=== PATIENT | female | born 1945 | race Caucasian/White ===

== ENCOUNTER → 2017-12-12 | Outpatient (CLI) | payer OTHER ==
[~2017-12-12] MED LIST: ASPI81TA28 PO; CALCTAB7 PO; CRD200 PO; FURO20TA PO; MCRK20 PO; MULTTAB PO; SDMC1 PO; VTMB12 PO; [UNRECOGNIZED DRUG - OTHER] PO
== END | disposition home or self-care (01) ==
LOC: C.LAB1850 09:11
PROVIDERS: ATTEND Internal Medicine Cardiovascular Disease
DX: I10 Essential (primary) hypertension (principal)

== ENCOUNTER 2021-07-27 11:58 | Inpatient (IN) ==
--- NOTE | 2021-07-27 13:51 | XRay Report ---
TWO VIEW CHEST CLINICAL HISTORY: Dyspnea.. FINDINGS: PA and lateral chest radiographs are compared to study dated 08/06/2014 and correlated with chest CT dated 07/24/2014. The patient is status post midline sternotomy and cardiac valve surgery. Epicardial pacing leads are in place. The heart is enlarged noting atherosclerotic calcification of t he thoracic aorta. The pulmonary vasculature is noncongested. Chronic interstitial thickening is helen lar to previous. There is bibasilar scarring/atelectasis. Suspect trace pleural effusions. No airspac e consolidation is identified. There is no pneumothorax. The skeletal structures are osteopenic. The bony thorax appears intact. IMPRESSION: 1. Cardiomegaly without radiographic evidence of congestive failure. 2. Trace pleural effusions. ACT 112: Negative or not required by law. Electronically signed by: Israel Cortes M.D. 07/27/2021 1:50 PM
[2021-07-27 16:17] LABS: Mean Corpuscular Hgb Conc 30.9 g/dL (32-36); Mean Platelet Volume 8.9 fL (7.4-10.4); Platelet Count 315 K/uL (130-400)
[2021-07-27 16:34] LABS: Alanine Aminotransferase 731 U/L (12-78); Albumin Level 3.3 gm/dl (3.4-5.0); Aspartate Aminotransferase 826 U/L (15-37); BUN Creatinine Ratio 22.9 (10-20); Blood Urea Nitrogen 30 mg/dl (7-18); Calcium 9.3 mg/dl (8.5-10.1); Carbon Dioxide 20 mmol/L (21-32); Chloride 94 mmol/L (98-107); Creatinine Clr Calc Pharmacy 30.5 ml/min; Est GFR (African American) 47.6 ml/min; Glucose 114 mg/dl (70-99); Potassium 4.7 mmol/L (3.5-5.1); Sodium 125 mmol/L (136-145)
[2021-07-27 16:45] LABS: Albumin Globulin Ratio 0.7 (0.9-2); Alkaline Phosphatase 203 U/L (45-117); Bilirubin,Total 0.8 mg/dl (0.2-1); Globulin 4.9 gm/dl (2.5-4.0); Total Protein 8.2 gm/dl (6.4-8.2); Troponin I < 0.015 ng/ml (0-0.045)
[2021-07-27 16:52] LABS: Basophils # (auto) 0.05 K/uL (0-0.2); Basophils % (auto) 0.7 %; Eosinophils # (auto) 0.05 K/uL (0-0.5); Eosinophils % (auto) 0.7 %; Hematocrit (blood only) 28.5 % (37-47); Hemoglobin 8.8 g/dL (12.0-16.0); Howell-Jolly Bodies Occasional; Hypochromasia Present; Immature Granulocytes # (auto) 0.02 K/uL (0.00-0.02); Immature Granulocytes % (auto) 0.3 %; Lymphocytes # (auto) 1.61 K/uL (1.2-3.4); Lymphocytes % (auto) 21.4 %; Mean Corpuscular Hemoglobin 23.6 pg (25-34); Mean Corpuscular Volume 76.4 fL (80-100); Monocytes # (auto) 0.77 K/uL (0.11-0.59); Monocytes % (auto) 10.2 %; Neutrophils # (auto) 5.02 K/uL (1.4-6.5); Neutrophils % (auto) 66.7 %; Nucleated RBC # (auto) 4.73 K/uL (0-0); Poikilocytosis Present; Polychromasia 1+; RDW Coefficient of Variation 18.2 % (11.5-14.5); RDW Standard Deviation 50.4 fL (36.4-46.3); Red Blood Count 3.73 M/uL (4.2-5.4); Spherocytes Occasional; White Blood Count 7.52 K/uL (4.8-10.8)
--- NOTE | 2021-07-27 17:10 | Electrocardiogram Report ---
Test Reason : Blood Pressure : / mmHG Vent. Rate : 105 BPM Atrial Rate : 113 BPM P-R Int : 000 ms QRS Dur : 108 ms QT Int : 378 ms P-R-T Axes : 000 045 036 degrees QTc Int : 499 ms Atrial fibrillation with rapid ventricular response Nonspecific ST abnormality Abnormal ECG When compared with ECG of 20-MAY-2018 14:43, Atrial fibrillation has replaced Sinus rhythm ST now depressed in Inferior leads QT has lengthened Confirmed by Baljinder Naik ([id number]) on 07/27/2021 5:09:50 PM Referred By: Confirmed By:Elijah Naik
[2021-07-27] MEDS ORDERED: SODIUM CHLORIDE 0.9% 1000ML 1,000 ML IV STA (21:37)
[2021-07-27] MEDS ORDERED: FLECAINIDE ACETATE 100 MG TABLET PO STA (22:03)
[2021-07-27] MEDS ORDERED: METOPROLOL SUCC 50MG EXT REL TAB PO STA ×2 (22:03)
--- NOTE | 2021-07-27 23:06 | History & Physical Report ---
Date of Service July 27, 2021 Assessment & Plan (1) Elevated LFTs: Plan: Ms. Sethi 75 yo female with PMHx iron deficiency anemia, afib on Eliquis, HTN, nonischemic cardiomyopathy, bicuspid aortic valve s/p aortic valve replacement, recent diagnosis of Hep A infection 1 month ago presented to ED with elevated LFTs and fatigue. 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 + nitrites -Rocephin x1 ED, continue -monitor WBC 4) h/o afib w/ RVR -asymptomatic -EKG: afib w/ RVR, nonspecific ST changes -trops negative -cont. flecainide, metoprolol -cont. Eliquis -hold losartan -on classroom monitor 5) Iron deficiency anemia -Hgb 8.8 in ED; 7.7 in clinic -Started iron again earlier this week, cont. iron supplementation -Has been taking calcium supplements for years; interferes with iron absorption -ferritin level pending -trend CBC DVT ppx: Eliquis 5mg FEN/GI: Heart Healthy, LRs 90mls/hr Code Status: Full Dispo: med/surg History of Present Illness Chief Complaint: Elevated LFTs, Fatigue Primary Care Provider: Sarkis Barahona MD Ms. Sethi 75 yo female with PMHx iron deficiency anemia, afib on Eliquis, HTN, nonischemic cardiomyopathy, bicuspid aortic valve s/p aortic valve replacement, recent diagnosis of Hep A infection ? 1 month ago presented to ED with elevated LFTs and fatigue. ~1 month ago, ate carry out [place] food (shrimp dish), 4 hours after eating had GI symptoms of diarrhea, nausea as well as palpitations. No vomiting at that time. Went to PCP and found to be positive for hepatitis A as well as elevated liver enzymes. RUQ US at that time negative. Due to GI upset and fatigue, was not eating much nor drinking a lot of liquids. Went back to PCP over the last week and liver enzymes remained elevated and increasing so was told to go to the ER. Of note, 1 month prior to symptoms in early May, patient [place] lot of seafood and shellfish. She also states prior to becoming sick 1 month ago, was drinking 2 bourbons per night for the last 30 years. Cannot take NSAIDs due to h/o aortic valve replacement. Patient reports having a contaminated well as a child. She had a brother that became very ill. Patient was administered HAV Immune globulin. Does not believe she was tested for HAV. She also had another exposure to HAV in 1970 when her room mates returned ill from [place]. She was again administered HAV Immune globulin. Allergies Allergy/AdvReac Type Severity Reaction Status Date / Time bupivacaine Allergy Unknown possibly Verified 07/27/21 23:12 caused seizures EGG PLANT Allergy Intermediate MOUTH Uncoded 07/27/21 23:12 TINGLES Home Medications Medication Instructions Recorded Confirmed Type acetaminophen 500 mg tablet 500 mg PO Q6H PRN 06/02/18 07/27/21 History (Tylenol Extra Strength) apixaban 5 mg tablet (Eliquis) 5 mg PO BID #180 tab 06/30/21 07/27/21 Rx losartan 100 mg tablet 50 mg PO DAILY tab 06/30/21 07/27/21 History flecainide 100 mg tablet 100 mg PO Q12H #60 tab 07/24/21 07/27/21 Rx metoprolol succinate 50 mg 150 mg PO DAILY #270 tab 07/24/21 07/27/21 Rx tablet,extended release 24 hr amoxicillin 500 mg capsule 500 mg PO .COMPLEX PRN 07/27/21 07/27/21 History calcium carbonate 600 mg-vitamin 1 tab PO DAILY 07/27/21 07/27/21 History D3 10 mcg (400 unit) tablet (Calcium 600 + D(3)) multivitamin 1 tab PO DAILY 07/27/21 07/27/21 History Past Med/Surg History Medical History Atrial fibrillation HAD 1 EPISODE WITH RVR FOLLOWING AVR REPAIR, NO ISSUES SINCE. PER CARDIO 4/23 'PT REFUSES PENITENTIARY ANTICOAGULATION SHE FELT HER AFIB WAS SOLEY A POST- OP PHENOMENON.' Bicuspid aortic valve S/P BOVINE AVR 2013 Hypertension REPORTS 120'S/80'S ON HOME READINGS Nonischemic cardiomyopathy P/t AVR, EF was 40%. EF on 05/21/17 echo WNL Seizure 1 TIME SEIZURE UPON EMERGENCE FROM ANESTHESIA FOR AVR 2013, HAD TO BE RE- INTUBATED. NO ISSUES SINCE, WAS ON KEPPRA X 3 MONTHS BUT WAS WEANED OFF. PER PT MAY HAVE BEEN R/T BUPIVOCAINE ALLERGY, BUT HOSPITAL RECORD SAYS 'UNKNOWN ETIOLOGY, POSSIBLY 2/2 ETOH WITHDRAWAL.' Surgical History Anesthesia complication PT HAD AN AVR AT [facility]. PT STATES SHE WAS TOLD SHE HAD A SEIZURE WHEN BEING BROUGHT OUT OF ANESTHESIA POSSIBLE RELATED TO EXPEREL. PT DENIES ANY ISSUES SINCE. H/O aortic valve replacement H/O colonoscopy History of cardiac catheterization Social History Smoking Status: Former smoker Second Hand Exposure: No; Hx Alcohol Use: Yes Alcohol type: hard liquor Hx Substance Use: No Preferred Language: Tuvaluan Communication Ability: Effective Tax Examining Technician Required: No Beliefs That Will Affect Care: None Current Living Situation: Spouse Other Information That Helps Us Care for You: No Feels Safe at Home: Yes Safety Concerns: Feels Safe At This Time Assistive Devices: Glasses Review of Systems Review of Systems: Constitutional: denies fevers, chills, night sweats. +fatigue HEENT: denies congestion, sore throat CV: denies chest pain, palpitations Resp: denies cough. +SOB GI: denies abdominal pain, vomiting, constipation, diarrhea. +nausea : denies pain with urination, change in urinary frequency Musculoskeletal: denies recent injury Skin: denies new rash Neuro: denies new numbness, tingling, weakness Physical Exam Physical Exam: Constitutional: thin, in no acute distress, pleasant and normal affect, intact memory. Vitals as above. HEENT: No scleral injection or discharge. anicteric. Moist mucous membranes. Clear oropharynx. No exudate. No lesions. Tympanic membranes are clear bilaterally. Neck: Supple without lymphadenopathy or thyromegaly. Trachea midline. Lungs: Clear to auscultation bilaterally with good effort. Cardiac: Irregularly irregular rhythm. No murmurs. No extremity edema. Abdomen: Bowel sounds present. Soft, nontender, and nondistended.No guarding. No masses. No hepatosplenomegaly. Negative murphys. No rebound tenderness. MSK: No cyanosis or clubbing. Extremities motor strength 5/5. Skin: No rashes, warm, dry. Neurologic: Grossly intact cranial nerves. PERRL. Results & Data Results & Data ([facility]) Vital Signs (Past 12 Hours) Vital Signs Temp Pulse Pulse Resp BP BP Pulse Ox 07/27/21 22:50 110 H 20 113/83 98 07/27/21 16: 112 H 18 146/115 H 96 07/27/21 13:00 36.0 C L 74 18 116/64 97 Laboratory Results Laboratory Results WBC 7.52 K/uL (4.8-10.8) 07/27/21 16: RBC 3.73 M/uL (4.2-5.4) L 07/27/21 16: Hgb 8.8 g/dL (12.0-16.0) L 07/27/21 16: Hct 28.5 % (37-47) L 07/27/21 16: MCV 76.4 fL (80-100) L 07/27/21 16: MCH 23.6 pg (25-34) L 07/27/21 16: MCHC 30.9 g/dL (32-36) L 07/27/21 16:01 RDW Std Deviation 50.4 fL (36.4-46.3) H 07/27/21 16: RDW Coeff of Tanya 18.2 % (11.5-14.5) H 07/27/21 16: Plt Count 315 K/uL (130-400) 07/27/21 16: MPV 8.9 fL (7.4-10.4) 07/27/21 16: Immature Gran % (Auto) 0.3 % 07/27/21 16: Neut % (Auto) 66.7 % 07/27/21 16: Lymph % (Auto) 21.4 % 07/27/21 16: Dale % (Auto) 10.2 % 07/27/21 16: Eos % (Auto) 0.7 % 07/27/21 16:01 Baso % (Auto) 0.7 % 07/27/21 16:01 Neut # (Auto) 5.02 K/uL (1.4-6.5) 07/27/21 16:01 Lymph # (Auto) 1.61 K/uL (1.2-3.4) 07/27/21 16:01 Dale # (Auto) 0.77 K/uL (0.11-0.59) H 07/27/21 16:01 Eos # (Auto) 0.05 K/uL (0-0.5) 07/27/21 16:01 Baso # (Auto) 0.05 K/uL (0-0.2) 07/27/21 16:01 Immature Gran # (Auto) 0.02 K/uL (0.00-0.02) 07/27/21 16:01 Absolute Nucleated RBC 4.73 K/uL (0-0) H 07/27/21 16:01 Nucleated RBC % (auto) 63.0 % 07/27/21 16:01 Polychromasia 1+ 07/27/21 16:01 Hypochromasia Present 07/27/21 16:01 Poikilocytosis Present 07/27/21 16:01 Spherocytes Occasional 07/27/21 16:01 Cisneros-Champion Bodies Occasional 07/27/21 16:01 Sodium 125 mmol/L (136-145) L 07/27/21 16:01 Potassium 4.7 mmol/L (3.5-5.1) 07/27/21 16: Chloride 94 mmol/L (98-107) L 07/27/21 16:01 Carbon Dioxide 20 mmol/L (21-32) L 07/27/21 16:01 Anion Gap 11.0 (3-11) 07/27/21 16:01 BUN 30 mg/dl (7-18) H 07/27/21 16:01 Creatinine 1.29 mg/dl (0.6-1.2) H 07/27/21 16:01 Est Cr Clr Drug Dosing 30.5 ml/min 07/27/21 16:01 Est GFR ( Amer) 47.6 ml/min 07/27/21 16:01 Est GFR (Non-Af Amer) 41.0 ml/min 07/27/21 16:01 BUN/Creatinine Ratio 22.9 (10-20) H 07/27/21 16:01 Glucose 114 mg/dl (70-99) H 07/27/21 16:01 Calcium 9.3 mg/dl (8.5-10.1) 07/27/21 16:01 Total Bilirubin 0.8 mg/dl (0.2-1) 07/27/21 16:01 AST 826 U/L (15-37) H 07/27/21 16:01 ALT 731 U/L (12-78) H 07/27/21 16:01 Alkaline Phosphatase 203 U/L (45-117) H 07/27/21 16:01 Troponin I < 0.015 ng/ml (0-0.045) 07/27/21 16:01 Total Protein 8.2 gm/dl (6.4-8.2) 07/27/21 16:01 Albumin 3.3 gm/dl (3.4-5.0) L 07/27/21 16:01 Globulin 4.9 gm/dl (2.5-4.0) H 07/27/21 16:01 Albumin/Globulin Ratio 0.7 (0.9-2) L 07/27/21 16:01 TSH 5.900 uIu/ml (0.300-4.500) H 07/27/21 16:01 Impressions Chest X-Ray 07/27/21 13:35 TWO VIEW CHEST CLINICAL HISTORY: Dyspnea.. FINDINGS: PA and lateral chest radiographs are compared to study dated 08/06/2014 and correlated with chest CT dated 07/24/2014. The patient is status post midline sternotomy and cardiac valve surgery. Epicardial pacing leads are in place. The heart is enlarged noting atherosclerotic calcification of the thoracic aorta. The pulmonary vasculature is noncongested. Chronic interstitial thickening is similar to previous. There is bibasilar scarring/atelectasis. Suspect trace pleural effusions. No airspace consolidation is identified. There is no pneumothorax. The skeletal structures are osteopenic. The bony thorax appears intact. IMPRESSION: 1. Cardiomegaly without radiographic evidence of congestive failure. 2. Trace pleural effusions. ACT 112: Negative or not required by law. Electronically signed by: Israel Cortes M.D. 07/27/2021 1:50 PM ECG Additional Comments: atrial fibrillation w/ RVR, nonspecific ST abnormalities Supervising Physician Co-Signing Physician Notes Patient seen and examined, chart reviewed, case discussed with Dr. Morales and I agree with the assessment and plan as above. In brief, patient is a 75yo female, recent HAV infection presenting with abnormal liver labs and fatigue. Exam largely unremarkable. No icterus, jaundice. No rashes. No ascites Abdomen is soft, NT/ND, no organomegaly No edema Labs and images reviewed. KRT=756 ILG=835, AL=427, Tbili WNL at 0.8 INR=1.3 Mp=311 Assessment/Plan - abnormal liver studies - AST/ALT predominantly. Recent HAV diagnosis following presumed food borne illness from take-out. ?HAV recurrence -Check hepatitis panel -Check Tylenol, Ferritin, repeat LFTs and INR in AM -IVF with repeat chemistry panel in AM for hyponatremia -Remainder of plan as above Resident Activity Tracking Resident Involvement: Resident Care Provided Care Provided: Adult Hospital Medicine
[2021-07-27 23:16] LABS: Appearance Urine Clear (Clear); Bacteria Urine Automated 3+ (Negative); Bilirubin Urine Negative (Negative); Blood Urine Trace (Negative); Color Urine Dark Yellow; Epithelial Cell Urine Auto >30 /lpf (0-5); Glucose Urine UA Negative (Negative); Ketones Urine Negative (Negative); Leukocyte Esterase Urine Trace (Negative); Nitrite Urine Positive (Negative); Protein Urine 2+ (Negative); RBC Urine Automated 0-4 /hpf (0-4); Specific Gravity Urine 1.018 (1.000-1.030); Urobilinogen Urine Negative (Negative)
--- NOTE | 2021-07-27 23:48 | Emergency Department Note ---
Impression & Plan Acute hepatitis, Anemia, Acute hyponatremia, Weakness, Acute UTI (urinary tract infection) ED Provider Note INFORMANT: Patient ED PROVIDER(S): Claude Vasquez MD CHIEF COMPLAINT: Weakness PLAN: Disposition: Admitted Condition: Good Outpatient prescription management: none Referral: None MEDICAL DECISION MAKING: Patient presented because of abnormal labs. Work-up here revealed significant elevation of her LFTs. The patient had normal bilirubin. She had a moderate anemia. No leukocytosis. Ultrasound imaging did not reveal any significant abnormal findings. Patient's urinalysis was concerning for infection. She was treated with IV Rocephin. She was hydrated. She was found to be hyponatremic. The patient will need further management in the hospital. [facility] Dr[facility] Marin[facility]. Patient was evaluated and admitted for further management. Triage Nursing notes reviewed and agree them. Vital Signs: reviewed and remarkable for no significant abnormalities Differential diagnosis: Infection, dehydration, metabolic abnormality, hypo/hyperglycemia, electrolyte disturbance, anemia, hypoxia, cardiac sources, intracerebral event, toxicologic, neurologic, as well as other pathologies. Diagnostics interpreted by me: ECG: Twelve-lead ECG reveals atrial fibrillation with rapid ventricular spots at [address] abnormality. No ST elevation. No PVCs. Cardiac Monitoring: Cardiac monitoring ordered by me: The patient was placed on continuous cardiac monitoring and observed. It revealed atrial fibrillation at 95 bpm. Imaging studies: Chest x-ray. Findings: A chest x-ray was performed and revealed no pneumothorax, effusion, infiltrate, pulmonary edema, free air under the diaphragm, or wide mediastinum. Impression: No acute disease. Ultrasound of the liver is negative. HPI: The patient is a 75 year old female who presents to the Emergency Room with complaints of weakness this started about 4 weeks ago and is persisting since having a bout of food poisoning. The patient was diagnosed with hepatitis A. She was also found to be anemic. The patient also had an aortic valve replaced and was found to be in A. fib. She was discharged on flecainide. She is was on Eliquis. The patient states this was stopped because blood work revealed abnormal liver functions and anemia. Patient was given iron. She has had some intermittent right upper quadrant pain but none currently. Denies any jaundice. Has not had any alcohol or Tylenol in a month. Patient does note decreased oral intake. Pt denies LOC, headache, fevers, chills, diaphoresis, visual changes, neck pain, chest pain, breathing difficulties, nausea, vomiting, back pain, melena, hematochezia, urinary symptoms, numbness, lymphadenopathy, rash, or other complaints. ROS: See above HPI for pertinent positives & negatives. A total of 10 systems reviewed and were otherwise negative. PAST MEDICAL HISTORY:See Below , A. fib PAST SURGICAL HISTORY:See Below, AVR FAMILY HISTORY:See Below SOCIAL HISTORY:See Below, retired nurse HOME MEDICATIONS:See Below ALLERGIES:See Below VITALS:See Below PHYSICAL EXAMINATION: GENERAL: Awake, fatigued-appearing, in no distress HENT: Normocephalic, atraumatic. Oropharynx unremarkable. EYES: Normal conjunctiva. Sclera non-icteric. NECK: Inspection normal. Non-tender. Supple. No nuchal rigidity. FROM. No masses. RESPIRATORY: Clear to auscultation. No wheezes. No rales. Normal respiratory effort. CARDIAC: Normal rate. Irregular rhythm. No murmurs. No rubs. Extremities warm and well perfused. Pulses equal. No JVD. GI: Soft, non-distended. No tenderness to palpation. No rebound or guarding. No masses. RECTAL: Deferred. MUSCULOSKELETAL: Atraumatic. Chest examination reveals no tenderness. The back is symmetrical on inspection without obvious abnormality. There is no CVA tenderness to palpation. No joint edema. LOWER EXTREMITIES: Calves are equal size bilaterally and non-tender. Trace edema. No discoloration. NEURO: Normal sensorium. No sensory or motor deficits noted. SKIN: No rash or jaundice noted. Claude Vasquez MD Past Med/Surg History Medical History Atrial fibrillation HAD 1 EPISODE WITH RVR FOLLOWING AVR REPAIR, NO ISSUES SINCE. PER CARDIO 12/16 'PT REFUSES NETWORK CONTROLLER ANTICOAGULATION SHE FELT HER AFIB WAS SOLEY A POST- OP PHENOMENON.' Bicuspid aortic valve S/P BOVINE AVR 2013 Hypertension REPORTS 120'S/80'S ON HOME READINGS Nonischemic cardiomyopathy P/t AVR, EF was 40%. EF on 05/21/17 echo WNL Seizure 1 TIME SEIZURE UPON EMERGENCE FROM ANESTHESIA FOR AVR 2013, HAD TO BE RE- INTUBATED. NO ISSUES SINCE, WAS ON KEPPRA X 3 MONTHS BUT WAS WEANED OFF. PER PT MAY HAVE BEEN R/T BUPIVOCAINE ALLERGY, BUT HOSPITAL RECORD SAYS 'UNKNOWN ETIOLOGY, POSSIBLY 2/2 ETOH WITHDRAWAL.' Surgical History Anesthesia complication PT HAD AN AVR AT [facility]. PT STATES SHE WAS TOLD SHE HAD A SEIZURE WHEN BEING BROUGHT OUT OF ANESTHESIA POSSIBLE RELATED TO EXPEREL. PT DENIES ANY ISSUES SINCE. H/O aortic valve replacement H/O colonoscopy History of cardiac catheterization Social History Smoking Status: Former smoker Second Hand Exposure: No; Hx Alcohol Use: Yes Alcohol type: other Hx Substance Use: No Preferred Language: Guinean Communication Ability: Effective Career Development Coordinator/Teacher Required: No Beliefs That Will Affect Care: None Current Living Situation: Spouse Feels Safe at Home: Yes Assistive Devices: Glasses Allergies Allergies Allergy/AdvReac Type Severity Reaction Status Date / Time bupivacaine Allergy Unknown possibly Verified 07/27/21 23:12 caused seizures EGG PLANT Allergy Intermediate MOUTH Uncoded 07/27/21 23:12 TINGLES Home Meds Home Medications Medication Instructions Recorded Confirmed acetaminophen 500 mg tablet 500 mg PO Q6H PRN 06/02/18 07/27/21 (Tylenol Extra Strength) losartan 100 mg tablet 50 mg PO DAILY tab 06/30/21 07/27/21 amoxicillin 500 mg capsule 500 mg PO .COMPLEX PRN 07/27/21 07/27/21 calcium carbonate 600 mg-vitamin 1 tab PO DAILY 07/27/21 07/27/21 D3 10 mcg (400 unit) tablet (Calcium 600 + D(3)) multivitamin 1 tab PO DAILY 07/27/21 07/27/21 Previous Rx's Medication Instructions Recorded apixaban 5 mg tablet (Eliquis) 5 mg PO BID #180 tab 06/30/21 flecainide 100 mg tablet 100 mg PO Q12H #60 tab 07/24/21 metoprolol succinate 50 mg 150 mg PO DAILY #270 tab 07/24/21 tablet,extended release 24 hr Results & Data (ED) Vital Signs Vital Signs - 24 hr 07/27/21 13:00 07/27/21 16:01 07/27/21 22:50 Temperature 36.0 C L Temperature Source Temporal Artery Scan Pulse Rate 74 Pulse Rate [Right Radial] 112 H 110 H Respiratory Rate 18 18 20 Respiratory Effort / Characteristics Respiratory Depth Blood Pressure 116/64 Blood Pressure [Left Arm] 146/115 H 113/83 Blood Pressure Mean 81 Blood Pressure Mean [Left Arm] 125 93 Pulse Oximetry 97 96 98 Oxygen Delivery Method Room Air Room Air Room Air Sepsis New/Unexplained Change in Mental Status No Sepsis Action Taken by Nursing No Action Required 07/27/21 23:09 07/28/21 01:41 Temperature Temperature Source Pulse Rate Pulse Rate [Right Radial] 95 H Respiratory Rate 18 Respiratory Effort / Characteristics Non-Labored Spontaneous Respiratory Depth Normal Blood Pressure Blood Pressure [Left Arm] 129/92 Blood Pressure Mean Blood Pressure Mean [Left Arm] 104 Pulse Oximetry 96 93 Oxygen Delivery Method Room Air Room Air Sepsis New/Unexplained Change in Mental Status Sepsis Action Taken by Nursing Laboratory Data Result diagrams: 07/27/21 16:01 07/27/21 16:01 Lab Results 07/27/21 07/27/21 07/27/21 Range/Units 16:01 16:01 22:52 WBC 7.52 (4.8-10.8) K/uL RBC 3.73 L (4.2-5.4) M/uL Hgb 8.8 L (12.0-16.0) g/dL Hct 28.5 L (37-47) % MCV 76.4 L (80-100) fL MCH 23.6 L (25-34) pg MCHC 30.9 L (32-36) g/dL RDW Std Deviation 50.4 H (36.4-46.3) fL RDW Coeff of Tanya 18.2 H (11.5-14.5) % Plt Count 315 (130-400) K/uL MPV 8.9 (7.4-10.4) fL Immature Gran % (Auto) 0.3 % Neut % (Auto) 66.7 % Lymph % (Auto) 21.4 % [place] % (Auto) 10.2 % Eos % (Auto) 0.7 % Baso % (Auto) 0.7 % Neut # (Auto) 5.02 (1.4-6.5) K/uL Lymph # (Auto) 1.61 (1.2-3.4) K/uL [place] # (Auto) 0.77 H (0.11-0.59) K/uL Eos # (Auto) 0.05 (0-0.5) K/uL Baso # (Auto) 0.05 (0-0.2) K/uL Immature Gran # (Auto) 0.02 (0.00-0.02) K/uL Absolute Nucleated RBC 4.73 H (0-0) K/uL Nucleated RBC % (auto) 63.0 % Polychromasia 1+ Hypochromasia Present Poikilocytosis Present Spherocytes Occasional [place] Bodies Occasional PT 13.2 H (9.0-12.0) Seconds INR 1.3 H (0.9-1.1) APTT 26.8 (21.0-31.0) Seconds PTT Ratio 1.0 Sodium 125 L (136-145) mmol/L Potassium 4.7 (3.5-5.1) mmol/L Chloride 94 L (98-107) mmol/L Carbon Dioxide 20 L (21-32) mmol/L Anion Gap 11.0 (3-11) BUN 30 H (7-18) mg/dl Creatinine 1.29 H (0.6-1.2) mg/dl Est Cr Clr Drug Dosing 30.5 ml/min Est GFR ( Amer) 47.6 ml/min Est GFR (Non-Af Amer) 41.0 ml/min BUN/Creatinine Ratio 22.9 H (10-20) Glucose 114 H (70-99) mg/dl Calcium 9.3 (8.5-10.1) mg/dl Total Bilirubin 0.8 (0.2-1) mg/dl AST 826 H (15-37) U/L ALT 731 H (12-78) U/L Alkaline Phosphatase 203 H (45-117) U/L Troponin I < 0.015 (0-0.045) ng/ml Total Protein 8.2 (6.4-8.2) gm/dl Albumin 3.3 L (3.4-5.0) gm/dl Globulin 4.9 H (2.5-4.0) gm/dl Albumin/Globulin Ratio 0.7 L (0.9-2) TSH 5.900 H (0.300-4.500) uIu/ml Urine Color Urine Appearance (Clear) Urine pH (4.5-7.5) Ur Specific [place] (1.000-1.030) Urine Protein (Negative) Urine Glucose (UA) (Negative) Urine Ketones (Negative) Urine Blood (Negative) Urine Nitrite (Negative) Urine Bilirubin (Negative) Urine Urobilinogen (Negative) Ur Leukocyte Esterase (Negative) Urine WBC (Auto) (0-5) /hpf Urine RBC (Auto) (0-4) /hpf U Hyaline Cast (Auto) (0-5) /lpf U Epithel Cells (Auto) (0-5) /lpf Urine Bacteria (Auto) (Negative) SARS-CoV-2, RNA, NAAT (NEGATIVE) Blood Type Antibody Screen 07/27/21 07/27/21 07/28/21 Range/Units 22:52 22:52 Unknown WBC (4.8-10.8) K/uL RBC (4.2-5.4) M/uL Hgb (12.0-16.0) g/dL Hct (37-47) % MCV (80-100) fL MCH (25-34) pg MCHC (32-36) g/dL RDW Std Deviation (36.4-46.3) fL RDW Coeff of Tanya (11.5-14.5) % Plt Count (130-400) K/uL MPV (7.4-10.4) fL Immature Gran % (Auto) % Neut % (Auto) % Lymph % (Auto) % [place] % (Auto) % Eos % (Auto) % Baso % (Auto) % Neut # (Auto) (1.4-6.5) K/uL Lymph # (Auto) (1.2-3.4) K/uL [place] # (Auto) (0.11-0.59) K/uL Eos # (Auto) (0-0.5) K/uL Baso # (Auto) (0-0.2) K/uL Immature Gran # (Auto) (0.00-0.02) K/uL Absolute Nucleated RBC (0-0) K/uL Nucleated RBC % (auto) % Polychromasia Hypochromasia Poikilocytosis Spherocytes [place]ner[place] Bodies PT (9.0-12.0) Seconds INR (0.9-1.1) APTT (21.0-31.0) Seconds PTT Ratio Sodium (136-145) mmol/L Potassium (3.5-5.1) mmol/L Chloride (98-107) mmol/L Carbon Dioxide (21-32) mmol/L Anion Gap (3-11) BUN (7-18) mg/dl Creatinine (0.6-1.2) mg/dl Est Cr Clr Drug Dosing ml/min Est GFR ( Amer) ml/min Est GFR (Non-Af Amer) ml/min BUN/Creatinine Ratio (10-20) Glucose (70-99) mg/dl Calcium (8.5-10.1) mg/dl Total Bilirubin (0.2-1) mg/dl AST (15-37) U/L ALT (12-78) U/L Alkaline Phosphatase (45-117) U/L Troponin I (0-0.045) ng/ml Total Protein (6.4-8.2) gm/dl Albumin (3.4-5.0) gm/dl Globulin (2.5-4.0) gm/dl Albumin/Globulin Ratio (0.9-2) TSH (0.300-4.500) uIu/ml Urine Color Dark Yellow Urine Appearance Clear (Clear) Urine pH 5.0 (4.5-7.5) Ur Specific [place] 1.018 (1.000-1.030) Urine Protein 2+ H (Negative) Urine Glucose (UA) Negative (Negative) Urine Ketones Negative (Negative) Urine Blood Trace H (Negative) Urine Nitrite Positive A (Negative) Urine Bilirubin Negative (Negative) Urine Urobilinogen Negative (Negative) Ur Leukocyte Esterase Trace H (Negative) Urine WBC (Auto) 5-10 H (0-5) /hpf Urine RBC (Auto) 0-4 (0-4) /hpf U Hyaline Cast (Auto) 10-30 H (0-5) /lpf U Epithel Cells (Auto) >30 H (0-5) /lpf Urine Bacteria (Auto) 3+ H (Negative) SARS-CoV-2, RNA, NAAT NEGATIVE (NEGATIVE) Blood Type O Negative Antibody Screen NEGATIVE Administered Medications Sodium Chloride (Nss 1000ml) 1,000 mls @ 125 mls/hr IV .Q8H STA Stop: 07/28/21 05:36 Last Admin: 07/27/21 22:48 Dose: 125 mls/hr Documented by: [id number] Discontinued Medications Flecainide Acetate (Flecainide Acetate 100 Mg Tablet) 100 mg PO NOW STA Stop: 07/27/21 22:04 Last Admin: 07/27/21 23:36 Dose: 100 mg Documented by: [id number] Ceftriaxone Sodium (Rocephin) 1,000 mg in 50 mls @ 100 mls/hr IV NOW STA Stop: 07/28/21 00:35 Last Infusion: 07/28/21 01:53 Dose: 0 mls/hr Documented by: [id number] Admin: 07/28/21 01:00 Dose: 100 mls/hr Documented by: [id number] Metoprolol Succinate (Metoprolol Succ 50mg Ext Rel Tab) 100 mg PO NOW STA Stop: 07/27/21 22:04 Last Admin: 07/27/21 23:32 Dose: 100 mg Documented by: [id number] Metoprolol Succinate (Metoprolol Succ 50mg Ext Rel Tab) 50 mg PO NOW STA Stop: 07/27/21 22:04 Last Admin: 07/27/21 23:32 Dose: 50 mg Documented by: [id number] Imaging Data Radiologist's Impression: Chest X-Ray 07/27/21 13:35 TWO VIEW CHEST CLINICAL HISTORY: Dyspnea.. FINDINGS: PA and lateral chest radiographs are compared to study dated 08/06/2014 and correlated with chest CT dated 07/24/2014. The patient is status post midline sternotomy and cardiac valve surgery. Epicardial pacing leads are in place. The heart is enlarged noting atherosclerotic calcification of the thoracic aorta. The pulmonary vasculature is noncongested. Chronic interstitial thickening is similar to previous. There is bibasilar scarring/atelectasis. Suspect trace pleural effusions. No airspace consolidation is identified. There is no pneumothorax. The skeletal structures are osteopenic. The bony thorax appears intact. IMPRESSION: 1. Cardiomegaly without radiographic evidence of congestive failure. 2. Trace pleural effusions. ACT 112: Negative or not required by law. Electronically signed by: Israel Cortes M.D. 07/27/2021 1:50 PM Discharge Plan Visit Data Chief Complaint: Weakness Stated Complaint: HEP A, WEAK, LOW HG, RFRD BY DR DE LA CRUZ Provider: Claude Vasquez Discharge Problem: Acute hepatitis, Anemia, Acute hyponatremia, Weakness, Acute UTI (urinary tract infection) Forms Stand Alone Forms: [employer] [facility] [employer] Prescriptions Prescriptions: No Action losartan 100 mg tablet 50 mg PO DAILY RF: 0 Hold Instructions: Home Medication placed on hold at Doctor's office Eliquis 5 mg tablet 5 mg PO BID Qty: 180 RF: 3 flecainide 100 mg tablet 100 mg PO Q12H Qty: 60 RF: 5 metoprolol succinate 50 mg tablet extended release 24 hr 150 mg PO DAILY Qty: 270 RF: 3 acetaminophen [Tylenol Extra Strength] 500 mg Tablet 500 mg PO Q6H PRN (Reason: Pain) RF: 0 multivitamin Tablet 1 tab PO DAILY RF: 0 calcium carbonate-vitamin D3 [Calcium 600 + D(3)] 600 mg-10 mcg (400 unit) Tablet 1 tab PO DAILY RF: 0 amoxicillin 500 mg capsule 500 mg PO .COMPLEX PRN (Reason: 1 HOUR PRIOR TO DENTAL VISITS) RF: 0 Referrals Referrals: Sarkis Barahona MD [Primary Care Provider] -
[2021-07-28 00:06] LABS: INR 1.3 (0.9-1.1); Partial Thromboplastin Time 26.8 Seconds (21.0-31.0); Prothrombin Time 13.2 Seconds (9.0-12.0)
[2021-07-28] MEDS ORDERED: cefTRIAXone SODIUM 1,000 MG/50 ML BAG IV STA (00:06)
[2021-07-28] MEDS ORDERED: ONDANSETRON INJ 2 MG/ML 2 ML VIAL IV PRN (03:46)
[2021-07-28] MEDS ORDERED: POLYETHYLENE (MIRALAX) 17 GM PACK PO PRN (03:46)
[2021-07-28] MEDS: LACTATED RINGER'S 1,000 ML IV SCH ×2 (03:58→16:00)
--- NOTE | 2021-07-28 04:54 | Billing Data ---
Date of Service July 28, 2021 Coding Level of Care Code 35254 Initial Inpt Care Lvl 3
[2021-07-28 06:51] LABS: Mean Corpuscular Hgb Conc 29.8 g/dL (32-36); Mean Platelet Volume 9.2 fL (7.4-10.4); Platelet Count 275 K/uL (130-400)
--- NOTE | 2021-07-28 07:09 | Ultrasound Report ---
US liver LIMITED ABDOMEN CLINICAL HISTORY: acute liver failure. COMPARISON: None. TECHNIQUE: Multiple grayscale and color images of the right upper quadrant of the abdomen. FINDINGS: Pancreas: The pancreas is within normal limits with no focal mass or peripancreatic fluid collection identified. Liver: The liver is homogeneous in echogenicity There is no evidence for a focal mass. There is no in trahepatic biliary duct dilatation. Gallbladder: The gallbladder is well distended with no evidence of cholelithiasis, wall thickening o r pericholecystic edema. There was reportedly a negative sonographic White sign. Common Bile Duct: (CBD): It is normal in size measuring 3 mm. Inferior Vena Cava (IVC): The imaged IVC is patent. Right kidney: There is no evidence for hydronephrosis, calculus or gross renal mass. The kidney is n ormal in size. IMPRESSION: Negative abdominal ultrasound. ACT 112: Negative or not required by law. Electronically signed by: Jaxon Sesay M.D. 07/28/2021 7:08 AM
[2021-07-28 07:27] LABS: Acanthocytes 1+; Anisocytosis Present; Basophils # (auto) 0.06 K/uL (0-0.2); Basophils % (auto) 0.8 %; Eosinophils # (auto) 0.19 K/uL (0-0.5); Eosinophils % (auto) 2.7 %; Hematocrit (blood only) 24.5 % (37-47); Hemoglobin 7.3 g/dL (12.0-16.0); Immature Granulocytes # (auto) 0.02 K/uL (0.00-0.02); Immature Granulocytes % (auto) 0.3 %; Lymphocytes # (auto) 1.42 K/uL (1.2-3.4); Mean Corpuscular Hemoglobin 22.9 pg (25-34); Mean Corpuscular Volume 76.8 fL (80-100); Monocytes # (auto) 0.92 K/uL (0.11-0.59); Neutrophils # (auto) 4.48 K/uL (1.4-6.5); Neutrophils % (auto) 63.2 %; Nucleated RBC # (auto) 4.17 K/uL (0-0); Nucleated RBC % (auto) 58.9 %; Pappenheimer Bodies 1+; Polychromasia 1+; RDW Coefficient of Variation 18.2 % (11.5-14.5); RDW Standard Deviation 50.9 fL (36.4-46.3); Red Blood Count 3.19 M/uL (4.2-5.4); Target Cells 1+; White Blood Count 7.09 K/uL (4.8-10.8)
[2021-07-28] MEDS ORDERED: SODIUM CHLORIDE 0.9% 250 ML IV PRN ×2 (08:13→15:47)
[2021-07-28] MEDS: FLECAINIDE ACETATE 100 MG TABLET PO SCH ×2 (09:00→19:39)
[2021-07-28] MEDS: FERROUS SULFATE 325 MG TAB PO SCH (09:00)
[2021-07-28] MEDS: METOPROLOL SUCC 50MG EXT REL TAB PO SCH (09:01)
[2021-07-28] MEDS: APIXABAN 5 MG TABLET PO SCH (09:33)
[2021-07-28 09:44] LABS: Albumin Level 2.4 gm/dl (3.4-5.0); BUN Creatinine Ratio 24.7 (10-20); Calcium 8.4 mg/dl (8.5-10.1); Creatinine Clr Calc Pharmacy 35.8 ml/min; Est GFR (African American) 57.7 ml/min; Est GFR (Non-African American) 49.8 ml/min; Potassium 4.2 mmol/L (3.5-5.1)
[2021-07-28 09:49] LABS: Albumin Globulin Ratio 0.6 (0.9-2); Bilirubin,Total 0.6 mg/dl (0.2-1); Globulin 3.8 gm/dl (2.5-4.0); Total Protein 6.2 gm/dl (6.4-8.2)
[2021-07-28 09:57] LABS: Hepatitis B Surf Ag Rflx Conf Neg (Neg)
[2021-07-28 10:25] LABS: Hepatitis C IgG 13Yrs+Old_Rflx Neg (Neg)
[2021-07-28] MEDS ORDERED: MELATONIN 3 MG TAB PO PRN ×2 (12:07→12:44)
[2021-07-28 14:46] LABS: Hematocrit (blood only) 23.3 % (37-47); Hemoglobin 6.9 g/dL (12.0-16.0)
--- NOTE | 2021-07-28 17:09 | Hospitalist Progress Note ---
Date of Service July 28, 2021 Assessment & Plan (1) Elevated LFTs: Plan: Ms. Sethi 75 yo female with PMHx iron deficiency anemia, afib on Eliquis, HTN, nonischemic cardiomyopathy, bicuspid aortic valve s/p aortic valve replacement, recent diagnosis of Hep A infection 1 month ago presented to ED with elevated LFTs and fatigue. 1) Elevated LFTs -elevated uptrending LFTs found in clinic, told to go to ER -Downtrending on morning CMP today. -ddx hepatitis A, liver failure secondary to alcohol abuse, autoimmune, cholecystitis -Hepatitis panel still pending at the time of writing this note. -MELD score: 23 -chest XR: cardiomegaly, trace bilateral effusions -statRAD RUQ US negative -consider future GI consult -trend LFTs, INR 2) Iron deficiency anemia -Hgb 8.8 in ED; 7.7 in clinic, hemoglobin on recheck today was 6.9. -Transfused patient with 2 units packed red blood cells. -Has been taking calcium supplements for years; interferes with iron absorption -ferritin level 33.1 -trend CBC in a.m. 3) Hyponatremia -likely due to hypovolemic hyponatremia, appears clinically dry -started LRs 90mls/hr -Has a baseline of 132-134 per old sodium measurements. -trend CMP -Diet changed to regular to add some sodium intake. 4) Asymptomatic UTI -UA showed pos leuk est. + nitrites -Rocephin x1 ED, discontinue antibiotics as she is asymptomatic. -monitor WBC 5) h/o afib w/ RVR -asymptomatic -EKG: afib w/ RVR, nonspecific ST changes -trops negative -cont. flecainide, metoprolol -Eliquis discontinued with concern for GI bleed. -hold losartan DVT ppx: SCDs FEN/GI: Regular diet, LRs 90mls/hr Code Status: Full Dispo: med/surg Admission and Anticipated Discharge Date Admission Date: July 28, 2021 Supervising Physician Co-Signing Physician Notes Patient seen and examined with PGY 1, Dr. Louie. Agree with history, exam findings, assessment and plan of care as outlined. In brief, Ms. Kelly is a 75-year-old female with history of chronic hyponatremia, A. fib and iron deficiency admitted with elevated LFTs, nausea and vomiting. She reports that the symptoms actually started after eating shrimp at a restaurant. She had outpatient labs that showed elevated LFTs as well as a positive hepatitis C titer. Unfortunately the outpatient hepatitis a titer did not differentiate between IgG and IgM. Today, she still feels a bit nauseous. No episodes of emesis. No diarrhea. No abdominal pain. Vital signs and nursing notes reviewed. Nontoxic-appearing. Heart with regular rate and rhythm. Abdomen is soft and nontender. There is no right upper quadrant tenderness. Labs and imaging reviewed. 1. Elevated LFTs likely secondary to acute hepatitis A infection. Her liver tests are just starting to trend down. Continue to monitor. Continue with IV fluids. 2. Acute on chronic hyponatremia. Likely the slight decrease in her sodium level is secondary to hypovolemia. This is slowly improving. 3. Asymptomatic bacteriuria. Antibiotics discontinued. Iron deficiency anemia. Hemoglobin on admission was 7.7. It has now down trended to 6.9. This may be secondary to hemodilution but regardless she does need to be transfused. 2 units of packed red blood cells transfused. 4. Atrial fibrillation. She is anticoagulated with Eliquis. Rate and rhythm control with metoprolol and flecainide. We will continue these. There is low suspicion for bleed so her Eliquis may be continued. Subjective Patient seen at bedside this morning. Patient reports having eaten some shrimp dish with Pashto and and has been having nausea and decreased appetite with some episodes of vomiting for the past month. Additionally reports eating some shellfish about 2 to 3 weeks ago while on vacation. According to records, she had seen the [facility] residency clinic for this issue. After some work-up there was a positive hepatitis A total antibody. Reports that she does have a history of iron deficient anemia and takes iron supplementation on and off for the past few decades. Currently feeling asymptomatic and is not short of breath, denying chest pain, not presyncopal, or having any weakness. Patient denies any bowel movements was bright red blood. Does report that 2 weeks ago she did have an episode of vomiting that did have dark brown vomit and around the same time had a dark bowel movement, but otherwise her bowel movements have been normal. Patient has no other complaints at this time. Review of Systems Review of Systems: All systems reviewed & are unremarkable except as noted in HPI & below Physical Exam Constitutional: well developed and well nourished; no acute distress Eyes: + anicteric sclerae ENMT: Conjunctival pallor bilaterally. Neck: trachea midline, no thyromegaly Respiratory: normal respiratory effort, lungs clear to auscultation Cardiovascular: Rate/Rhythm: + irregularly irregular Palpation: normal PMI Vessels: no JVD Gastrointestinal (Abdomen): normal bowel sounds, soft, nontender, no hepatosplenomegaly Neurologic: moves all extremities Psychiatric: Orientation: oriented x 3 and cooperative Results & Data Results & Data ([facility]) Vital Signs (Past 12 Hours) Vital Signs Temp Pulse Pulse Resp BP BP Pulse Ox 07/28/21 16:56 36.4 C L 94 H 18 101/71 95 07/28/21 16:04 36.7 C 95 H 18 108/82 97 07/28/21 07:36 36.7 C 102 H 16 128/84 97 Resident Activity Tracking Resident Involvement: Resident Care Provided Care Provided: Adult Hospital Medicine
[2021-07-28] MEDS ORDERED: cefTRIAXone SODIUM 1,000 MG in DEXTROSE 5% 50 ML IV SCH (21:00)
[2021-07-29 03:41] LABS: Hepatitis A Antibody IgM NON-REACTIVE (NON-REACTIVE); Hepatitis B Core Antibody IgM NON-REACTIVE (NON-REACTIVE)
[2021-07-29] MEDS ORDERED: SODIUM CHLORIDE 0.9% 250 ML IV PRN (05:07)
[2021-07-29 06:51] LABS: Hematocrit (blood only) 31.8 % (37-47); Hemoglobin 10.1 g/dL (12.0-16.0)
[2021-07-29 07:06] LABS: Albumin Level 2.4 gm/dl (3.4-5.0); BUN Creatinine Ratio 25.5 (10-20); Calcium 8.3 mg/dl (8.5-10.1); Creatinine Clr Calc Pharmacy 35.8 ml/min; Est GFR (African American) 57.7 ml/min; Est GFR (Non-African American) 49.8 ml/min; Potassium 4.5 mmol/L (3.5-5.1)
[2021-07-29 07:09] LABS: Albumin Globulin Ratio 0.6 (0.9-2); Bilirubin,Total 0.8 mg/dl (0.2-1); Globulin 3.9 gm/dl (2.5-4.0); Total Protein 6.3 gm/dl (6.4-8.2)
--- NOTE | 2021-07-29 07:44 | Hospitalist Progress Note ---
Date of Service July 29, 2021 Assessment & Plan (1) Elevated LFTs: Plan: Ms. Sethi 75 yo female with PMHx iron deficiency anemia, afib on Eliquis, HTN, nonischemic cardiomyopathy, bicuspid aortic valve s/p aortic valve replacement, recent diagnosis of Hep A infection 1 month ago presented to ED with elevated LFTs and fatigue. 1) Elevated LFTs -elevated uptrending LFTs found in clinic, told to go to ER -(08/08) AST 901, ALT 813, ALP 228 -ddx hepatitis A, autoimmune hepatitis -Hepatitis A IgM neg -MELD score: 23 -chest XR: cardiomegaly, trace bilateral effusions -RUQ US negative -ordered ART, anti-smooth, anti-mitochondrial, p-anca to r/o autoimmune etiology -GI consulted -trend LFTs, INR 2) Iron deficiency anemia -Hgb 8.8 in ED; 7.7 in clinic, hemoglobin on recheck (07/28) -Transfused patient with 2 units packed red blood cells (07/28), Hgb (07/29) 10.1 -Has been taking calcium supplements for years; interferes with iron absorption -ferritin level 33.1 -cont. iron supplementation -trend CBC 3) Hyponatremia -likely due to hypovolemic hyponatremia, appears clinically dry -(07/29) Na 125 -cont. LRs 90mls/hr -Has a baseline of 132-134 per old sodium measurements. -regular diet, trend CMP 4) Asymptomatic UTI -UA showed pos leuk est. + nitrites -Rocephin x1 ED, discontinue antibiotics as she is asymptomatic. -monitor WBC 5) h/o afib w/ RVR -asymptomatic -EKG: afib w/ RVR, nonspecific ST changes -trops negative -cont. flecainide, metoprolol -Eliquis discontinued with concern for GI bleed. 6) HTN -restarted home losartan since less concern for GI bleed DVT ppx: SCDs FEN/GI: Regular diet, LRs 90mls/hr Code Status: Full Dispo: med/surg Admission and Anticipated Discharge Date Admission Date: July 28, 2021 Supervising Physician Co-Signing Physician Notes Patient seen and examined with PGY 1, Dr. Yang. Agree with history, exam findings, assessment and plan of care as outlined. In brief, Ms. Kelly is a 75-year-old female with history of chronic hyponatremia, A. fib and iron deficiency admitted with elevated LFTs, nausea and vomiting. She reports that the symptoms actually started after eating shrimp at a restaurant. She had outpatient labs that showed elevated LFTs as well as a positive hepatitis A titer. Unfortunately the outpatient hepatitis a titer did not differentiate between IgG and IgM. Today, she still feels fatigued. No abdominal pain or nausea. Does not recall ever having the hepatitis A vaccine, but has been exposed in the past and tells us that she received gamma globulin. She did use melatonin to sleep last night, but feels that she is still having effects from the melatonin as she is still sleepy during the day. Vital signs and nursing notes reviewed. Nontoxic-appearing. Heart with regular rate and rhythm. Abdomen is soft and nontender. There is no right upper quadrant tenderness. Labs and imaging reviewed. 1. Elevated LFTs. Liver tests were trending down, but now back up. Unclear whether this is an acute hepatitis A infection (outpatient labs showed positive hepatitis A but was not fractionated between IgM and IgGinitially done at the beginning of June). HepA IgM here is negative. Prior RUQ ultrasound unremarkable x 2. ?autoimmune hepatitis. Appreciate gastroenterology recommendations. 2. Acute on chronic hyponatremia. A bit below her baseline. Encourage PO intake. 3. Asymptomatic bacteriuria. Antibiotics discontinued. 4. Iron deficiency anemia. s/p 2 units PRBCs, hgb up to 10.1. May benefit from IV iron as an outpatient if her iron levels are consistently low despite oral iron supplementation 5. Atrial fibrillation. She is anticoagulated with Eliquis. Rate and rhythm control with metoprolol and flecainide. We will continue these. There is low suspicion for bleed so her Eliquis may be continued. 6. Elevated TSH. Noted on inpatient as well as outpatient labs. Repeat TSH tomorrow with free T4. Dispo: pending clinical improvement. Subjective Patient seen at bedside this morning. Slept well last night after taking 10mg of melatonin but has been groggy today. Still not eating that much but no nausea. Otherwise no acute complaints. Review of Systems Review of Systems: Constitutional: denies fevers, chills, fatigue CV: denies chest pain, palpitations Resp: denies cough, SOB GI: denies abdominal pain, vomiting, constipation, diarrhea, nausea Physical Exam Constitutional: WD/WN, vitals as above well developed and well nourished; no acute distress Eyes: + anicteric sclerae ENMT: Mouth: + tongue abnormality (mild jaundice on bottom) Neck: trachea midline, no thyromegaly Respiratory: normal respiratory effort, lungs clear to auscultation Cardiovascular: RRR, no murmur, no edema Palpation: normal PMI Vessels: no JVD Gastrointestinal (Abdomen): normal bowel sounds, soft, nontender, no hepatosplenomegaly Neurologic: moves all extremities Psychiatric: Orientation: oriented x 3 and cooperative Results & Data Results & Data ([place]) Vital Signs (Past 12 Hours) Vital Signs Temp Pulse Pulse Resp BP BP Pulse Ox 07/29/21 00:06 36.6 C 86 17 127/93 95 07/28/21 22:02 36.6 C 89 18 119/76 99 07/28/21 21:02 36.4 C L 88 18 117/81 99 07/28/21 20:32 36.5 C 89 18 119/86 99 07/28/21 20:17 36.5 C 95 H 18 122/88 94 07/28/21 19:53 36.4 C L 93 H 18 126/95 93 Resident Activity Tracking Resident Involvement: Resident Care Provided Care Provided: Adult Hospital Medicine
[2021-07-29] MEDS: METOPROLOL SUCC 50MG EXT REL TAB PO SCH (08:10)
[2021-07-29] MEDS: FLECAINIDE ACETATE 100 MG TABLET PO SCH ×2 (08:46→21:30)
[2021-07-29] MEDS: FERROUS SULFATE 325 MG TAB PO SCH (08:46)
[2021-07-29] MEDS: LACTATED RINGER'S 1,000 ML IV SCH ×3 (10:20→21:29)
[2021-07-29] MEDS: LOSARTAN POTASSIUM 50 MG TAB PO SCH (18:47)
[2021-07-29] MEDS: APIXABAN 5 MG TABLET PO SCH (21:30)
[2021-07-30 07:30] LABS: Mean Platelet Volume 9.3 fL (7.4-10.4); Platelet Count 188 K/uL (130-400)
[2021-07-30 07:39] LABS: INR 1.6 (0.9-1.1); Prothrombin Time 15.8 Seconds (9.0-12.0)
[2021-07-30 07:52] LABS: ALC (manual) 0.52 K/uL (1.2-3.4); ANC (manual) 7.03 K/uL (1.4-6.5); Acanthocytes 1+; Anisocytosis Present; Eosinophils # (manual) 0.22 K/uL (0-0.5); Eosinophils % (manual) 2.7 %; Hematocrit (blood only) 32.8 % (37-47); Hemoglobin 10.5 g/dL (12.0-16.0); Howell-Jolly Bodies 1+; Lymphocytes # (manual) 0.52 K/uL (1.2-3.4); Lymphocytes % (manual) 6.3 %; Mean Corpuscular Hemoglobin 25.7 pg (25-34); Mean Corpuscular Volume 80.2 fL (80-100); Monocytes # (manual) 0.52 K/uL (0.11-0.59); Monocytes % (manual) 6.3 %; Neutrophils # (manual) 7.03 K/uL (1.4-6.5); Neutrophils % (manual) 84.7 %; Nucleated RBC # (auto) 2.25 K/uL (0-0); Nucleated RBC % (auto) 27.1 %; Polychromasia 1+; RDW Coefficient of Variation 19.3 % (11.5-14.5); Red Blood Count 4.09 M/uL (4.2-5.4); Target Cells 1+
[2021-07-30 08:13] LABS: Albumin Level 2.2 gm/dl (3.4-5.0); BUN Creatinine Ratio 27.4 (10-20); Calcium 8.1 mg/dl (8.5-10.1); Creatinine Clr Calc Pharmacy 36.8 ml/min; Est GFR (African American) 59.6 ml/min; Est GFR (Non-African American) 51.5 ml/min; Potassium 4.6 mmol/L (3.5-5.1)
[2021-07-30 08:22] LABS: Albumin Globulin Ratio 0.6 (0.9-2); Bilirubin,Total 0.8 mg/dl (0.2-1); Globulin 3.6 gm/dl (2.5-4.0); Thyroid Stimulating Hormone 5.5 uIu/ml (0.300-4.500); Total Protein 5.8 gm/dl (6.4-8.2)
[2021-07-30] MEDS: LOSARTAN POTASSIUM 50 MG TAB PO SCH (08:47)
[2021-07-30] MEDS: FERROUS SULFATE 325 MG TAB PO SCH (08:47)
[2021-07-30] MEDS: APIXABAN 5 MG TABLET PO SCH ×2 (08:47→21:20)
[2021-07-30] MEDS: FLECAINIDE ACETATE 100 MG TABLET PO SCH ×2 (08:47→21:20)
[2021-07-30] MEDS: METOPROLOL SUCC 50MG EXT REL TAB PO SCH (08:48)
--- NOTE | 2021-07-30 09:46 | Hospitalist Progress Note ---
Date of Service July 30, 2021 Assessment & Plan (1) Elevated LFTs: Plan: Ms. Sethi 75 yo female with PMHx iron deficiency anemia, afib on Eliquis, HTN, nonischemic cardiomyopathy, bicuspid aortic valve s/p aortic valve replacement, recent diagnosis of Hep A infection 1 month ago presented to ED with elevated LFTs and fatigue. 1) Elevated LFTs -elevated uptrending LFTs found in clinic, told to go to ER -(07/30) AST 890, ALT 878, ALP 205; INR 1.6 -ddx hepatitis A, liver failure secondary to alcohol abuse, autoimmune, cholecystitis -MELD score: 23 -chest XR: cardiomegaly, trace bilateral effusions -RUQ US negative -Hepatitis A IgM neg -pending ART, anti-smooth, anti-mitochondrial, p-anca to r/u autoimmunce etiology -GI consulted -trend LFTs, INR 2) Iron deficiency anemia -Hgb 8.8 in ED; 7.7 in clinic, hemoglobin on recheck (07/28) -Transfused patient with 2 units packed red blood cells (07/28), Hgb (07/29) 10.1 -Has been taking calcium supplements for years; interferes with iron absorption -ferritin level 33.1 -cont. iron supplementation -trend CBC 3) Hyponatremia -likely due to hypovolemic hyponatremia, appears clinically dry -(07/30) Na 122 -cont. LRs 90mls/hr -Has a baseline of 132-134 per old sodium measurements. -regular diet, trend CMP -salt TABS 4) Asymptomatic UTI -UA showed pos leuk est. + nitrites -Rocephin x1 ED, discontinue antibiotics as she is asymptomatic. -monitor WBC 5) h/o afib w/ RVR -asymptomatic -EKG: afib w/ RVR, nonspecific ST changes -trops negative -cont. flecainide, metoprolol -Eliquis discontinued with concern for GI bleed, INR 1.6 6) HTN -restarted home losartan since less concern for GI bleed DVT ppx: SCDs FEN/GI: Regular diet, LRs 90mls/hr Code Status: Full Dispo: med/surg Admission and Anticipated Discharge Date Admission Date: July 28, 2021 Subjective Patient seen at bedside this morning. Slept well last night after taking 10mg of melatonin but has been groggy today. Still not eating that much but no nausea. Otherwise no acute complaints. new subjective...... Review of Systems Review of Systems: Constitutional: denies fevers, chills, fatigue CV: denies chest pain, palpitations Resp: denies cough, SOB GI: denies abdominal pain, vomiting, constipation, diarrhea, nausea Physical Exam Constitutional: WD/WN, vitals as above well developed and well nourished; no acute distress Eyes: + anicteric sclerae ENMT: Mouth: + tongue abnormality (mild jaundice on bottom) Neck: trachea midline, no thyromegaly Respiratory: normal respiratory effort, lungs clear to auscultation Cardiovascular: RRR, no murmur, no edema Rate/Rhythm: + irregularly irregular Palpation: normal PMI Vessels: no JVD Gastrointestinal (Abdomen): normal bowel sounds, soft, nontender, no hepatosplenomegaly Neurologic: moves all extremities Psychiatric: Orientation: oriented x 3 and cooperative Results & Data Results & Data ([facility]) Vital Signs (Past 12 Hours) Vital Signs Temp Pulse Resp BP Pulse Ox 07/30/21 08:43 98 H 139/112 H 07/30/21 06:24 36.5 C 93 H 16 136/103 H 97 07/29/21 22:35 36.4 C L 93 H 20 98/61 L 94
[2021-07-30] MEDS: LACTATED RINGER'S 1,000 ML IV SCH ×2 (10:08→15:11)
--- NOTE | 2021-07-30 12:34 | Gastrointestinal Consultation ---
Date of Consultation July 30, 2021 Assessment & Plan (1) Elevated LFTs: Await all tests. Please add IgG total. Top diagnosis is AIH. This is not alcoholic hepatitis. Unlikely to be Hepatitis A. Need to see previous labs to sort out. Hep A can have a relapsing phase if prior labs work is consistent. Slight increase in INR might be nutritional given normal bilirubin. Please give vitamin K PO. No new drugs to blame. Monitor INR. (2) Hyperthyroidism determined by thyroid function test: Note high TSH with high T4. May benefit from endocrine evaluation for pituitary issues. does not explain LFTs. Note recent diagnosis of Afib and Apixaban History of Present Illness Reason for Consultation: Hepatitris Attending Physician: Renee Perry, History of Present Illness Patient admitted with abnormal transaminases consequent to workup for tiredness and lack of appetite. She reports a diagnosis of Hepatitis A last month, but her IgM antibody titre is not suggestive at this time. Unlcear how the diagnosis was made. Currently complaints of not abdominal pain. She slept well and has had no confusion. No history of any other liver disease, but steady user of 2-3 drinks of liquor daily. Not drinking since end of may. Was vaccinated for hep A , she thinks but "did not mount a titre and hence got re vaccinated. Unclear if this is Hep B or A. Got immunoglobulin when her brother got hepatitis A as a teenager. This time she thought she got hepatitis from eating shrimp the day of her symptoms ( incubation period is a few weeks). She did had sea food few weeks before also. Allergies Allergy/AdvReac Type Severity Reaction Status Date / Time bupivacaine Allergy Intermediate possibly Verified 07/28/21 08:22 caused seizures eggplant Allergy Mild MOUTH Verified 07/28/21 08:22 TINGLES Home Medications Medication Instructions Recorded Confirmed Type acetaminophen 500 mg tablet 500 mg PO Q6H PRN 06/02/18 07/27/21 History (Tylenol Extra Strength) apixaban 5 mg tablet (Eliquis) 5 mg PO BID #180 tab 06/30/21 07/27/21 Rx losartan 100 mg tablet 50 mg PO DAILY tab 06/30/21 07/27/21 History flecainide 100 mg tablet 100 mg PO Q12H #60 tab 07/24/21 07/27/21 Rx metoprolol succinate 50 mg 150 mg PO DAILY #270 tab 07/24/21 07/27/21 Rx tablet,extended release 24 hr amoxicillin 500 mg capsule 500 mg PO .COMPLEX PRN 07/27/21 07/27/21 History calcium carbonate 600 mg-vitamin 1 tab PO DAILY 07/27/21 07/27/21 History D3 10 mcg (400 unit) tablet (Calcium 600 + D(3)) multivitamin 1 tab PO DAILY 07/27/21 07/27/21 History Patient History Medical History Atrial fibrillation HAD 1 EPISODE WITH RVR FOLLOWING AVR REPAIR, NO ISSUES SINCE. PER CARDIO 12/16 'PT REFUSES OVEN TENDER ANTICOAGULATION SHE FELT HER AFIB WAS SOLEY A POST- OP PHENOMENON.' Bicuspid aortic valve S/P BOVINE AVR 2013 Hypertension REPORTS 120'S/80'S ON HOME READINGS Nonischemic cardiomyopathy P/t AVR, EF was 40%. EF on 05/21/17 echo WNL Seizure 1 TIME SEIZURE UPON EMERGENCE FROM ANESTHESIA FOR AVR 2013, HAD TO BE RE- INTUBATED. NO ISSUES SINCE, WAS ON KEPPRA X 3 MONTHS BUT WAS WEANED OFF. PER PT MAY HAVE BEEN R/T BUPIVOCAINE ALLERGY, BUT HOSPITAL RECORD SAYS 'UNKNOWN ETIOLOGY, POSSIBLY 2/2 ETOH WITHDRAWAL.' Surgical History Anesthesia complication PT HAD AN AVR AT [facility]. PT STATES SHE WAS TOLD SHE HAD A SEIZURE WHEN BEING BROUGHT OUT OF ANESTHESIA POSSIBLE RELATED TO EXPEREL. PT DENIES ANY ISSUES SINCE. H/O aortic valve replacement H/O colonoscopy History of cardiac catheterization Social History Smoking Status: Former smoker Second Hand Exposure: No; Hx Alcohol Use: Yes Alcohol type: hard liquor Hx Substance Use: No Preferred Language: Honduran Communication Ability: Effective [employer] Supervisor Required: No Beliefs That Will Affect Care: None Current Living Situation: Spouse Feels Safe at Home: Yes Assistive Devices: None Review of Systems Constitutional: + fatigue, + malaise, + weakness and + anorexia; no fever and no sweats Cardiovascular: no chest pain, no dyspnea, no palpitations and no edema Neurologic: no confusion Endocrine: no tremor, anxiety Physical Exam Constitutional: WD/WN, vitals as above Cardiovascular: Rate/Rhythm: regular rate and regular rhythm; not tachycardic Extremities: no pedal edema and no edema Gastrointestinal (Abdomen): Inspection/Auscultation: abdomen normal to inspection and normal bowel sounds; abdomen not distended Percussion/Palpation: abdomen nontender, no guarding, no hepatosplenomegaly and no ascites Skin: no jaundice no spider nevi, palmar erythema Neurologic: No asterixis Results & Data ([facility]) Vital Signs (Past 12 Hours) Vital Signs Temp Pulse Resp BP Pulse Ox 07/30/21 08:43 98 H 139/112 H 07/30/21 06:24 36.5 C 93 H 16 136/103 H 97
--- NOTE | 2021-07-30 15:57 | Hospitalist Progress Note ---
Date of Service July 30, 2021 Assessment & Plan (1) Elevated LFTs: Plan: Ms. Sethi 75 yo female with PMHx iron deficiency anemia, afib on Eliquis, HTN, nonischemic cardiomyopathy, bicuspid aortic valve s/p aortic valve replacement, recent diagnosis of Hep A infection 1 month ago presented to ED with elevated LFTs and fatigue. 1. Elevated LFTs. Liver tests remain elevated. Suspect that this is not an acute hepatitis A infection (outpatient labs showed positive hepatitis A but was not fractionated between IgM and IgGinitially done at the beginning of June). HepA IgM here is negative. Prior RUQ ultrasound unremarkable x 2. ?autoimmune hepatitis--ART, anti-smooth muscle, antimitochondrial, p-ANCA are pending. Her IgG level is 1040. Appreciate continued gastroenterology recommendations. 2. Elevated INR. INR has increased from 1.3-1.6. No signs of bleeding today. 5 mg of oral vitamin K was given today. Repeat INR tomorrow. 3. Acute on chronic hyponatremia. A bit below her baseline. Encourage PO intake. 4. Iron deficiency anemia. s/p 2 units PRBCs, hgb up to 10.5. Of note, her outpatient iron level was very low, no ferritin level obtained. Iron level today is 16. Ferritin is pending. May consider outpatient IV iron in the f uture if she continues to have low iron and low ferritin with her anemia. 5. Central hyperthyroidism. Elevated TSH and free T4. Possible TSH producing pituitary adenoma. We will check MRI brain with pituitary sequences. If this is normal, may consider thyroid hormone resistance as possible etiology. With her pulse in the 90s today, we will continue with her metoprolol XL 150 mg daily. She starts to get tachycardic, we may need to increase her dose. 6. Atrial fibrillation. She is anticoagulated with Eliquis. Continue with rate and rhythm control with metoprolol and flecainide. If her heart rate continues to remain elevated, we may consider moving her to telemetry although she would prefer not to do this. 7. Hypertension. Continue metoprolol. Restarted losartan 50mg yesterday. Continue to monitor blood pressures. Patient has requested that Dr. Neal see her while she is here in the hospital. 8. Asymptomatic bacteriuria. Antibiotics have been discontinued. Her urine culture is growing 2 types of gram-negative bacilli. If she starts to become symptomatic, can consider restarting antibiotics. DVT ppx: On Eliquis FEN/GI: Regular diet stopped IVFs today. Code Status: Full Dispo: med/surg Disposition: Pending clinical improvement. Of note, I did discuss with the patient that she may consider following up with Naomie Nair, nurse practitioner, at [facility] when she is discharged from the hospital given her long standing anemia and Naomie's expertise in hematology. Admission and Anticipated Discharge Date Admission Date: July 28, 2021 Subjective Some malaise today. Tried to eat breakfast today, although starting having some heartburn type symptoms and nausea. [place] a bit better after being given zofran. However, zofran did make her quite tired. She does have heartburn symptoms from time to time (ie if she eats too much) and uses pepcid at home. Some nausea but no emesis. Review of Systems Respiratory: no cough and no dyspnea Cardiovascular: no chest pain Physical Exam Constitutional: WD/WN, vitals as above Eyes: + anicteric sclerae; no scleral abnormality ENMT: external ear and nose normal, oropharynx normal Respiratory: normal respiratory effort, lungs clear to auscultation Cardiovascular: RRR, no murmur, no edema Gastrointestinal (Abdomen): normal bowel sounds, soft, nontender, no hepatosplenomegaly Skin: no rashes, warm and dry Results & Data Results & Data ([facility]) Vital Signs (Past 12 Hours) Vital Signs Temp Pulse Resp BP Pulse Ox 07/30/21 08:43 98 H 139/112 H 07/30/21 06:24 36.5 C 93 H 16 136/103 H 97
[2021-07-30] MEDS ORDERED: FAMOTIDINE 20 MG TAB PO PRN (15:58)
[2021-07-30] MEDS ORDERED: PHYTONADIONE 5 MG TAB PO STA (15:59)
[2021-07-30] MEDS ORDERED: GADOBUTROL 65ML VIAL IV ONE (17:28)
--- NOTE | 2021-07-30 18:09 | Magnetic Resonance Report ---
MRI OF THE BRAIN AND PITUITARY WITHOUT AND WITH IV CONTRAST CLINICAL HISTORY: Elevated TSH, free T4, evaluate for TSH secreting pituitary adenoma. COMPARISON STUDY: No previous studies for comparison. TECHNIQUE: Utilizing a 1.5 Nathalie magnet and dedicated coil, multiplanar, multiecho imaging of the br ain was performed pre and postcontrast administration with dynamic postcontrast thin cut imaging thro ugh the sellar region. IV administration of 5 mL of Gadavist contrast was uneventful. FINDINGS: Note is made of a 3 mm focus of restricted diffusion within the periventricular right tempo ral lobe on axial diffusion weighted sequence image 10 of 22. This is hypointense on the ADC map. No additional foci of restricted diffusion are present. Ventricular system is normal. Basal cisterns are patent. There are no extra-axial collections. Flow-voids for the major intracranial vessels are pres ent. White matter T2 hyperintense foci suggest mild small vessel disease. There are multiple ill-defi jose j foci of T1 hypointensity within visualized skeletal structures, most pronounced within the calvar ium and clivus. There is also diminished T1 signal within portions of the upper cervical spine. The s ize of the pituitary gland is normal. Infundibulum is midline. There is a subtle 3 mm hypointense foc us within the right aspect of the pituitary gland shown on coronal image 5 of 9 of the dedicated kristofer ilene sequence. IMPRESSION: 1. Heterogeneous marrow signal with multifocal T1 hypointense foci. This is nonspecific but worrisome for a marrow replacement or marrow proliferative process. Etiologies such as metastatic disease, lym phoma/leukemia and myeloma are within the differential. 2. Possible 3 mm microadenoma within the right aspect of the pituitary gland. 3. 3 mm focus of restricted diffusion within the periventricular right temporal lobe suggestive of a small acute infarct. ACT 112: Positive. There are findings on this exam that require communication between the performing entity and the patient following Patient Test Result Information Act ([place] Act 112) guidelines. Electronically signed by: Mal Suazo M.D. 07/30/2021 6:07 PM
[2021-07-31 06:19] LABS: Mean Platelet Volume 9.7 fL (7.4-10.4); Platelet Count 165 K/uL (130-400)
[2021-07-31 06:26] LABS: INR 1.7 (0.9-1.1); Prothrombin Time 16.6 Seconds (9.0-12.0)
[2021-07-31 06:49] LABS: Est GFR (African American) 47.1 ml/min; Est GFR (Non-African American) 40.7 ml/min; Potassium 4.7 mmol/L (3.5-5.1)
[2021-07-31 06:50] LABS: Albumin Level 2.1 gm/dl (3.4-5.0); BUN Creatinine Ratio 25.6 (10-20); Calcium 8.2 mg/dl (8.5-10.1); Creatinine Clr Calc Pharmacy 30.3 ml/min; Hematocrit (blood only) 32.2 % (37-47); Hemoglobin 10.3 g/dL (12.0-16.0); Mean Corpuscular Hemoglobin 25.8 pg (25-34); Mean Corpuscular Volume 80.7 fL (80-100); Nucleated RBC # (auto) 1.29 K/uL (0-0); Nucleated RBC % (auto) 14.6 %; RDW Coefficient of Variation 19.6 % (11.5-14.5); RDW Standard Deviation 57.1 fL (36.4-46.3); Red Blood Count 3.99 M/uL (4.2-5.4); White Blood Count 8.81 K/uL (4.8-10.8)
[2021-07-31 06:55] LABS: Acanthocytes 1+; Anisocytosis Present; Basophils # (auto) 0.03 K/uL (0-0.2); Basophils % (auto) 0.3 %; Echinocytes 2+; Eosinophils # (auto) 0.14 K/uL (0-0.5); Eosinophils % (auto) 1.6 %; Howell-Jolly Bodies 1+; Immature Granulocytes # (auto) 0.05 K/uL (0.00-0.02); Immature Granulocytes % (auto) 0.6 %; Lymphocytes # (auto) 2.27 K/uL (1.2-3.4); Lymphocytes % (auto) 25.8 %; Monocytes # (auto) 1.07 K/uL (0.11-0.59); Monocytes % (auto) 12.1 %; Neutrophils # (auto) 5.25 K/uL (1.4-6.5); Neutrophils % (auto) 59.6 %; Polychromasia 1+; Spherocytes 1+; Target Cells 1+
[2021-07-31 06:58] LABS: Albumin Globulin Ratio 0.6 (0.9-2); Bilirubin,Total 0.7 mg/dl (0.2-1); Globulin 3.4 gm/dl (2.5-4.0); Total Protein 5.5 gm/dl (6.4-8.2)
--- NOTE | 2021-07-31 08:47 | Gastroenterology Progress Note ---
Date of Service July 31, 2021 Assessment & Plan (1) Elevated LFTs: Plan: Elevated LFTs: Significantly elevated liver function testing results. No evidence of obstruction or concerns for med involvement. Autoimmune hepatitis work-up in progress. Labs are pending. Negative hepatitis A/B/C serologies. Will add CMV and mono for completeness. Monitor PT/INR daily. Continue supportive care measures. Anemia: Counts are stable presently. Transfuse as needed Please refer to supervising physician addendum for further recommendations. Admission and Anticipated Discharge Date Admission Date: July 28, 2021 Supervising Physician Co-Signing Physician Notes I have seen and examined the patient. I agree with note above by ЕЛЕНА Kraft except as noted below. HPI with patient for H and P. Pt denies abd pain. Pt was drinking 2 drinks per night but stopped over one month ago. No new meds or supplements. She was using tylenol 625 mg 3 daily but acetaminophen level on admit normal. PE Abdomen pos bs, soft, no guarding nor rebound A/P elevated LFTS--hep A,B, C, and mono neg, CMV and autoimmune serologies pending. I asked pharmacy to risk stratify home meds for possible etiology of liver toxicity. ? marrow proliferative process noted on MRI of head--workup per hospitalist but this may some impact on liver Fe def anemia--heme neg at present. Outpt endoscopic workup pending above workup Subjective The patient is awake alert and oriented this morning. Reports that the feeling of being washed out has improved. She states she did get some sleep last night. Denies any abdominal pain. Denies nausea or vomiting. She reports that she t ypically has a bowel movement daily and she has had 1 since inpatient admission. Denies any blood in stools including melena or hematochezia. 07/06/2021: Total hepatitis a antibody testing is positive, hepatitis B surface antigen, surface antibody, core antibody are negative, hepatitis C antibody is negative. Repeat hepatitis B/C serologies are negative and hepatitis A IgM is also negative. The patient is a lifetime non-smoker. She reports that until about a month ago she was consuming 2 bourbon per day. Denies any recreational drug use including marijuana. 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 She is with 2 adult children and several grandchildren. Review of Systems Review of Systems: All systems reviewed & are unremarkable except as noted in HPI & below Physical Exam Constitutional: WD/WN, vitals as above Cardiovascular: Rate/Rhythm: regular rate and regular rhythm; not tachycardic Extremities: no pedal edema and no edema Gastrointestinal (Abdomen): Inspection/Auscultation: abdomen normal to inspection and normal bowel sounds; abdomen not distended Percussion/Palpation: abdomen nontender, no guarding, no hepatosplenomegaly and no ascites Skin: no jaundice no spider nevi, palmar erythema Results & Data ([facility]) Vital Signs (Past 12 Hours) Vital Signs Temp Pulse Resp BP BP Pulse Ox 07/31/21 07:32 36.7 C 51 L 16 163/105 H 94 07/30/21 21:28 36.6 C 58 L 16 135/93 95 Laboratory Results Laboratory Results - last 24 hr 07/27/21 07/30/21 07/30/21 22:52 06:54 06:54 WBC RBC Hgb Hct MCV MCH MCHC RDW Std Deviation RDW Coeff of Tanya Plt Count MPV Immature Gran % (Auto) Neut % (Auto) Lymph % (Auto) Bradford % (Auto) Eos % (Auto) Baso % (Auto) Neut # (Auto) Lymph # (Auto) Bradford # (Auto) Eos # (Auto) Baso # (Auto) Immature Gran # (Auto) Absolute Nucleated RBC Nucleated RBC % (auto) Hypersegmented Neuts Polychromasia Anisocytosis Spherocytes Target Cells [place] Bodies Echinocytes Acanthocytes (Spur) PT INR Sodium Potassium Chloride Carbon Dioxide Anion Gap BUN Creatinine Est Cr Clr Drug Dosing Est GFR ( Amer) Est GFR (Non-Af Amer) BUN/Creatinine Ratio Glucose Calcium Ferritin 63.0 Total Bilirubin AST ALT Alkaline Phosphatase Total Protein Albumin Globulin Albumin/Globulin Ratio IgG 1040.0 Crossmatch See Detail 07/31/21 07/31/21 07/31/21 05:41 05:41 05:41 WBC 8.81 RBC 3.99 L Hgb 10.3 L Hct 32.2 L MCV 80.7 MCH 25.8 MCHC 32.0 RDW Std Deviation 57.1 H RDW Coeff of Tanya 19.6 H Plt Count 165 MPV 9.7 Immature Gran % (Auto) 0.6 Neut % (Auto) 59.6 Lymph % (Auto) 25.8 Bradford % (Auto) 12.1 Eos % (Auto) 1.6 Baso % (Auto) 0.3 Neut # (Auto) 5.25 Lymph # (Auto) 2.27 Bradford # (Auto) 1.07 H Eos # (Auto) 0.14 Baso # (Auto) 0.03 Immature Gran # (Auto) 0.05 H Absolute Nucleated RBC 1.29 H Nucleated RBC % (auto) 14.6 Hypersegmented Neuts 1+ Polychromasia 1+ Anisocytosis Present Spherocytes 1+ Target Cells 1+ [place] Bodies 1+ Echinocytes 2+ Acanthocytes (Spur) 1+ PT 16.6 H INR 1.7 H Sodium 121 L Potassium 4.7 Chloride 92 L Carbon Dioxide 21 Anion Gap 8.0 BUN 33 H Creatinine 1.30 H Est Cr Clr Drug Dosing 30.3 Est GFR ( Amer) 47.1 Est GFR (Non-Af Amer) 40.7 BUN/Creatinine Ratio 25.6 H Glucose 89 Calcium 8.2 L Ferritin Total Bilirubin 0.7 AST 1101 H ALT 1113 H Alkaline Phosphatase 194 H Total Protein 5.5 L Albumin 2.1 L Globulin 3.4 Albumin/Globulin Ratio 0.6 L IgG Crossmatch Diagnostic Findings Pituitary MRI 07/30/21 16:17 MRI OF THE BRAIN AND PITUITARY WITHOUT AND WITH IV CONTRAST CLINICAL HISTORY: Elevated TSH, free T4, evaluate for TSH secreting pituitary adenoma. COMPARISON STUDY: No previous studies for comparison. TECHNIQUE: Utilizing a 1.5 Nathalie magnet and dedicated coil, multiplanar, multiecho imaging of the brain was performed pre and postcontrast administration with dynamic postcontrast thin cut imaging through the sellar region. IV administration of 5 mL of Gadavist contrast was uneventful. FINDINGS: Note is made of a 3 mm focus of restricted diffusion within the periventricular right temporal lobe on axial diffusion weighted sequence image 10 of . This is hypointense on the ADC map. No additional foci of restricted diffusion are present. Ventricular system is normal. Basal cisterns are patent. There are no extra-axial collections. Flow-voids for the major intracranial vessels are present. White matter T2 hyperintense foci suggest mild small vessel disease. There are multiple ill-defined foci of T1 hypointensity within visua lized skeletal structures, most pronounced within the calvarium and clivus. There is also diminished T1 signal within portions of the upper cervical spine. The size of the pituitary gland is normal. Infundibulum is midline. There is a subtle 3 mm hypointense focus within the right aspect of the pituitary gland shown on coronal image 5 of 9 of the dedicated dynamic sequence. IMPRESSION: 1. Heterogeneous marrow signal with multifocal T1 hypointense foci. This is nonspecific but worrisome for a marrow replacement or marrow proliferative process. Etiologies such as metastatic disease, lymphoma/leukemia and myeloma are within the differential. 2. Possible 3 mm microadenoma within the right aspect of the pituitary gland. 3. 3 mm focus of restricted diffusion within the periventricular right temporal lobe suggestive of a small acute infarct. ACT 112: Positive. There are findings on this exam that require communication between the performing entity and the patient following Patient Test Result Information Act ([place] Act 112) guidelines. Electronically signed by: Mal Suazo M.D. 07/30/2021 6:07 PM
[2021-07-31] MEDS: APIXABAN 5 MG TABLET PO SCH ×2 (08:51→20:09)
[2021-07-31] MEDS: FERROUS SULFATE 325 MG TAB PO SCH (08:51)
[2021-07-31] MEDS: FLECAINIDE ACETATE 100 MG TABLET PO SCH ×2 (08:52→20:09)
[2021-07-31] MEDS: LOSARTAN POTASSIUM 50 MG TAB PO SCH (08:52)
[2021-07-31] MEDS: METOPROLOL SUCC 50MG EXT REL TAB PO SCH (10:05)
--- NOTE | 2021-07-31 10:34 | Cardiology Consultation ---
Date of Consultation July 31, 2021 Assessment & Plan (1) Atrial fibrillation: -physical examination suggest the patient is now in sinus rhythm. -would check an EKG today. -continue flecainide, metoprolol succinate, and apixaban. (2) H/O aortic valve replacement: -history of bicuspid aortic valve stenosis. -underwent placement of a bioprosthetic aortic valve, July 2014. -proper function on echocardiogram May 2019. (3) Nonischemic cardiomyopathy: -noted prior to her aortic valve replacement. -normal LV systolic function on echocardiogram May 2019. (4) Hypertension: -adequate control on current regimen. (5) Elevated LFTs: -workup in progress. History of Present Illness Attending Physician: Michael Meneses, History of Present Illness Mrs. Kelly is a 75-year-old female admitted on July 27 with fatigue, anemia, transaminitis, and atrial fibrillation with rapid ventricular response. This consultation was ordered to assist in her cardiac management. Of note, the patient is well known to me from the outpatient setting. She was in her usual state of health until early June when she was noted to be in atrial fibrillation with rapid ventricular response during an office visit with Dr. Morales. He increased her beta-flakita and started her on Eliquis 5 mg b.i.d.. She was then seen by me in the office on June 30. Diltiazem was added to her medical regimen. A follow-up visit done on July 07 noted her to be hypotensive and bradycardic and therefore, her diltiazem was discontinued. She was seen again on July 24 and started on flecainide 100 mg b.i.d. hoping to convert her to normal sinus rhythm. She has been tolerating that medication without difficulty. She was seen in the office on the day of admission and noted to have significantly elevated liver transaminases (AST 826, ALT 731) and was then sent to the emergency room for hospital admission. Unfortunately, her liver transaminases continue to increase. His felt that she may have a diagnosis of autoimmune hepatitis. She has received a blood transfusion for her significant anemia. The patient does carry history of a resolved nonischemic cardiomyopathy. The patient underwent placement of a bioprosthetic aortic valve in July 2014. Preoperative cardiac catheterization noted clean coronary arteries. Currently, patient is resting comfortably in bed without complaints. Past medical and surgical history 1. Hypertension 2. Resolved nonischemic cardiomyopathy-see above 3. Bioprosthetic AVR-July 2014 4. Clean coronary arteries-July 2014 5. Chronic diastolic CHF 6. Paroxysmal atrial fibrillation-June 2021 7. Iron deficiency anemia 8. Chronic hyponatremia Social history and lives with her Retired are and No tobacco 2-3 alcoholic drinks per day up until May 2021 Family history No early coronary artery disease Review of systems A 10 review systems undertaken and negative except for that described above. Allergies Allergy/AdvReac Type Severity Reaction Status Date / Time bupivacaine Allergy Intermediate possibly Verified 07/28/21 08:22 caused seizures eggplant Allergy Mild MOUTH Verified 07/28/21 08:22 TINGLES Home Medications Medication Instructions Recorded Confirmed Type acetaminophen 500 mg tablet 500 mg PO Q6H PRN 06/02/18 07/27/21 History (Tylenol Extra Strength) apixaban 5 mg tablet (Eliquis) 5 mg PO BID #180 tab 06/30/21 07/27/21 Rx losartan 100 mg tablet 50 mg PO DAILY tab 06/30/21 07/27/21 History flecainide 100 mg tablet 100 mg PO Q12H #60 tab 07/24/21 07/27/21 Rx metoprolol succinate 50 mg 150 mg PO DAILY #270 tab 07/24/21 07/27/21 Rx tablet,extended release 24 hr amoxicillin 500 mg capsule 500 mg PO .COMPLEX PRN 07/27/21 07/27/21 History calcium carbonate 600 mg-vitamin 1 tab PO DAILY 07/27/21 07/27/21 History D3 10 mcg (400 unit) tablet (Calcium 600 + D(3)) multivitamin 1 tab PO DAILY 07/27/21 07/27/21 History Patient History Medical History (Updated 07/31/21 @ 10:29 by Moses Neal MD) Atrial fibrillation HAD 1 EPISODE WITH RVR FOLLOWING AVR REPAIR, NO ISSUES SINCE. PER CARDIO 12/16 'PT REFUSES LONGTERM ANTICOAGULATION SHE FELT HER AFIB WAS SOLEY A POST- OP PHENOMENON.' Bicuspid aortic valve S/P BOVINE AVR 2013 Hypertension REPORTS 120'S/80'S ON HOME READINGS Nonischemic cardiomyopathy P/t AVR, EF was 40%. EF on 05/21/17 echo WNL Seizure 1 TIME SEIZURE UPON EMERGENCE FROM ANESTHESIA FOR AVR 2013, HAD TO BE RE- INTUBATED. NO ISSUES SINCE, WAS ON KEPPRA X 3 MONTHS BUT WAS WEANED OFF. PER PT MAY HAVE BEEN R/T BUPIVOCAINE ALLERGY, BUT HOSPITAL RECORD SAYS 'UNKNOWN ETIOLOGY, POSSIBLY 2/2 ETOH WITHDRAWAL.' Surgical History (Updated 07/31/21 @ 10:30 by Moses Neal MD) Anesthesia complication PT HAD AN AVR AT [facility]. PT STATES SHE WAS TOLD SHE HAD A SEIZURE WHEN BEING BROUGHT OUT OF ANESTHESIA POSSIBLE RELATED TO EXPEREL. PT DENIES ANY ISSUES SINCE. H/O aortic valve replacement H/O colonoscopy History of cardiac catheterization Social History Smoking Status: Former smoker Second Hand Exposure: No; Hx Alcohol Use: Yes Alcohol type: hard liquor Hx Substance Use: No Preferred Language: Maori Communication Ability: Effective Pot Annealer Required: No Beliefs That Will Affect Care: None Current Living Situation: Spouse Feels Safe at Home: Yes Assistive Devices: None Physical Exam Physical Exam: In general this is a well-developed well-nourished white female in no acute distress. HEENT exam is negative. Neck reveals normal carotid upstrokes with a soft transmitted murmur. No JVD. There is no thyromegaly. Cardiovascular exam reveals a regular rhythm with a 1/6 systolic ejection murmur heard at the base. Valve sounds are crisp. No S3. Chest reveals a well-healed midline scar. Lungs are clear without rales, rhonchi, or wheezes. Abdomen is soft without bruits. Extremities reveal intact radial artery and posterior tibial pulses bilaterally. There is no peripheral edema. Results & Data ([facility]) Vital Signs (Past 12 Hours) Vital Signs Temp Pulse Resp BP BP Pulse Ox 07/31/21 10:00 58 L 18 138/97 96 07/31/21 07:32 36.7 C 51 L 16 163/105 H 94 Laboratory Results CBC notes hemoglobin 10.3, hematocrit 32.2, white count 8.8, and platelet count [id number]. Electrolytes note a sodium of 121, potassium 4.7, chloride 92, bicarb 21, BUN 33, creatinine 1.3, and glucose of 89. Diagnostic Findings EKG notes atrial fibrillation with a rapid ventricular response of 105 beats per minute. There is nonspecific ST abnormality. Chest x-ray notes cardiomegaly and postoperative changes. PG Care Time/CCT Total # of Minutes Spent Total Time Spent with Patient: Total time spent is greater than 50% in coordination of care (as documented) at patient's floor/unit and/or counseling patient: Coding Level of Care Code 57712 Initial Inpt Care Lvl 3 Diagnoses Atrial fibrillation I48.91 Nonischemic cardiomyopathy I42.8 Hypertension I10 Elevated LFTs R79.89 H/O aortic valve replacement Z95.2
[2021-07-31 10:51] LABS: Appearance Urine Clear (Clear); Bacteria Urine Automated Negative (Negative); Bilirubin Urine Negative (Negative); Blood Urine Negative (Negative); Color Urine Yellow; Glucose Urine UA Negative (Negative); Ketones Urine Negative (Negative); Leukocyte Esterase Urine Negative (Negative); Nitrite Urine Negative (Negative); Protein Urine 1+ (Negative); RBC Urine Automated 0-4 /hpf (0-4); Specific Gravity Urine 1.008 (1.000-1.030); Urobilinogen Urine Negative (Negative)
[2021-07-31 11:35] LABS: Creatinine Urine Random 30.3 mg/dl
[2021-07-31] MEDS ORDERED: BUTALBITAL/ASPIRIN/CAFFEINE 1 TAB TAB PO PRN (11:41)
[2021-07-31] MEDS ORDERED: SODIUM CHLORIDE 0.9% 1000ML 1,000 ML IV ONE (16:00)
--- NOTE | 2021-07-31 16:00 | Electrocardiogram Report ---
Test Reason : Blood Pressure : / mmHG Vent. Rate : 055 BPM Atrial Rate : 055 BPM P-R Int : 238 ms QRS Dur : 122 ms QT Int : 552 ms P-R-T Axes : 030 048 026 degrees QTc Int : 528 ms Sinus bradycardia with sinus arrhythmia with 1st degree A-V block Poor R wave progression, consider anterior OK vs. lead placement vs. LVH Abnormal ECG When compared with ECG of 27-JUL-2021 15:54, Sinus rhythm has replaced Atrial fibrillation Vent. rate has decreased BY 50 BPM Confirmed by Moses Neal ([id number]) on 07/31/2021 4:00:38 PM Referred By: REFERRED SELF Confirmed By:Moses Neal
--- NOTE | 2021-07-31 16:50 | Hospitalist Progress Note ---
Date of Service July 31, 2021 Assessment & Plan (1) Elevated LFTs: Plan: Ms. Sethi 75 yo female with PMHx iron deficiency anemia, afib on Eliquis, HTN, nonischemic cardiomyopathy, bicuspid aortic valve s/p aortic valve replacement, recent diagnosis of Hep A infection 1 month ago presented to ED with elevated LFTs and fatigue. 1. Elevated LFTs -Hepatitis A IgM neg -Awaiting ART, anti-smooth, anti-mitochondrial, p-anca to r/u autoimmunce etiology -Per GI: Autoimmune work-up in progress; GGT labs still pending -CMV, mono labs ordered; negative for mono, CMV still pending -trend LFTs, INR -Overall picture (declining platelets, PT/INR increase, suggests liver failure) -Continue to follow GI for management, recs. 2. Acute kidney injury -Acute rise in creatinine, 1.3, up from 1.07 yesterday -Per patient, last made urine early this a.m. -Ordered urine creatinine, urine sodium, urinalysis; likely prerenal -Administered 1 L bolus normal saline, maintenance saline drip 80 mL/h -Trend creatinine BMP labs in the morning 2. Iron deficiency anemia -Hgb 8.8 in ED; 7.7 in clinic, hemoglobin on recheck (07/28) -Transfused patient with 2 units packed red blood cells (07/28), Hgb (07/29) 10.1 -Has been taking calcium supplements for years; interferes with iron absorption -ferritin level 33.1 -cont. iron supplementation -trend CBC 3. Hyponatremia -likely due to hypovolemic hyponatremia, appears clinically dry -(07/30) Na 122 -cont. LRs 90mls/hr -Has a baseline of 132-134 per old sodium measurements. -regular diet, trend CMP -salt TABS, p.o. repletion via diet 4) Asymptomatic UTI -UA showed pos leuk est. + nitrites -Rocephin x1 ED, discontinue antibiotics as she is asymptomatic. -WBC: 8.8 this morning, slightly elevated from 8.3 yesterday; will continue to monitor 5) h/o afib w/ RVR -asymptomatic -EKG: afib w/ RVR, nonspecific ST changes -trops negative -cont. flecainide -Held metoprolol this morning, as pulse was 51 this a.m. continue to hold until pressures, pulse necessitate restarting. Otherwise hold for now. -INR 1.7 this morning, slightly elevated from 1.6 yesterday. Signs of bleeding. Concern for normal liver failure (see above #1). 6) HTN -restarted home losartan since less concern for GI bleed DVT ppx: SCDs FEN/GI: Regular diet, LRs 90mls/hr Code Status: Full Dispo: med/surg Admission and Anticipated Discharge Date Admission Date: July 28, 2021 Supervising Physician Co-Signing Physician Notes I personally examined the patient and verified all freeman points of history and exam, discussed case, and agree with decision making with Dr Mathew Generally feeling okayno acute physical complaints. Updated to the best my ability, son present at the bedside. Vitals noted, in general she is awake and alert pleasant no distress. HEENT normocephalic atraumatic mucous membranes moist. Breathing unlabored no accessory muscle use good effort. Skin shows no rashes no pallor or icterus. Neuro without focal deficits. Marked transaminitisrising INR that did not correct with vitamin K is concerning, normal bilirubin is reassuringand fortunately at the bedside she does not show encephalopathy or a septic deterioration type of a picture. Possibly late effect from hep a (need to find the reported outpatient labs it might have been positive), versus possible autoimmune hepatitis (work-up pending). Does not seem to have had any toxic ingestions, and obviously no shock. Continue to follow closely. Also launch secondary work-up for jose m mariano (see below as well) bony lesionincidentally noted on MRI brainhowever, given unclear etiology for her transaminitis, evaluate for malignancy Elevated TSH/high free [id number] true central hyperthyroidism versus possibly a inflammatory response/euthyroid sick type of an effect. Continue to follow clinically, not tachycardic or tremulous. 3 mm microadenoma possible, although does not seem to be overtly obviously clear. Treat acute situation, monitor, repeat TSH/free T4 in about a month, further work-up from there if this persists Acute CVA incidentally noted on MRI - secondary w/u and management (although can be done as outpt depending on clinical progress of other issues) Subjective No acute events overnight. Resting comfortably this morning in bed watching television. No acute complaints at this time. Review of Systems Constitutional: as per Subjective / HPI Physical Exam Constitutional: WD/WN, vitals as above Respiratory: Auscultation: + crackles (Mild; left-sided basilar; all other lung sorenson clear to auscultation) Cardiovascular: Rate/Rhythm: regular rate and regular rhythm Heart Sounds: + murmur Gastrointestinal (Abdomen): normal bowel sounds, soft, nontender, no hepatosplenomegaly Results & Data Results & Data ([facility]) Vital Signs (Past 12 Hours) Vital Signs Temp Pulse Resp BP BP Pulse Ox 07/31/21 16:20 36.5 C 57 L 18 118/83 97 07/31/21 10:00 58 L 18 138/97 96 07/31/21 07:32 36.7 C 51 L 16 163/105 H 94 Resident Activity Tracking Resident Involvement: Resident Care Provided Care Provided: Adult Hospital Medicine
[2021-07-31] MEDS: SODIUM CHLORIDE 0.9% 1000ML 1,000 ML IV SCH (17:18)
--- NOTE | 2021-07-31 20:35 | Billing Data ---
Date of Service July 31, 2021 Coding Level of Care Code 52491 Subseq Hosp Care Lvl 3
[2021-08-01] MEDS: SODIUM CHLORIDE 0.9% 1000ML 1,000 ML IV SCH ×2 (05:02→15:56)
[2021-08-01 06:44] LABS: Mean Corpuscular Hgb Conc 31.3 g/dL (32-36); Mean Platelet Volume 10.2 fL (7.4-10.4); Platelet Count 155 K/uL (130-400)
[2021-08-01 07:36] LABS: Hematocrit (blood only) 34.8 % (37-47); Hemoglobin 10.9 g/dL (12.0-16.0); Mean Corpuscular Hemoglobin 25.6 pg (25-34); Mean Corpuscular Volume 81.9 fL (80-100); Nucleated RBC # (auto) 0.99 K/uL (0-0); Nucleated RBC % (auto) 10.3 %; RDW Coefficient of Variation 20.2 % (11.5-14.5); RDW Standard Deviation 58.6 fL (36.4-46.3); Red Blood Count 4.25 M/uL (4.2-5.4); White Blood Count 9.52 K/uL (4.8-10.8)
[2021-08-01 07:40] LABS: Anisocytosis Present; Basophils # (auto) 0.06 K/uL (0-0.2); Basophils % (auto) 0.6 %; Echinocytes 2+; Eosinophils % (auto) 2.1 %; Howell-Jolly Bodies 1+; Immature Granulocytes # (auto) 0.05 K/uL (0.00-0.02); Immature Granulocytes % (auto) 0.5 %; Lymphocytes # (auto) 2.19 K/uL (1.2-3.4); Monocytes # (auto) 0.99 K/uL (0.11-0.59); Monocytes % (auto) 10.4 %; Neutrophils # (auto) 6.03 K/uL (1.4-6.5); Neutrophils % (auto) 63.4 %; Polychromasia 1+; Schistocytes 1+; Spherocytes 2+
[2021-08-01 08:28] LABS: INR 1.4 (0.9-1.1); Prothrombin Time 13.7 Seconds (9.0-12.0)
--- NOTE | 2021-08-01 08:46 | Gastroenterology Progress Note ---
Date of Service August 01, 2021 Assessment & Plan (1) Elevated LFTs: Plan: Elevated LFTs: Significantly elevated liver function testing results. Autoimmune hepatitis work-up in progress. Labs are pending. Negative hepatitis A/B/C serologies. Negative mono, CMV pending. Monitor PT/INR daily. Continue supportive care measures. Pharmacy reviewed medication list for possible liver toxicity. No significant medication risks outside of acetaminophen. ? marrow proliferative process noted on MRI of head--workup per hospitalist but this may some impact on liver Anemia: Counts are stable presently. Heme negative presently. Transfuse as needed. Outpatient endoscopic work-up pending. Please refer to supervising physician addendum for further recommendations. Admission and Anticipated Discharge Date Admission Date: July 28, 2021 Supervising Physician Co-Signing Physician Notes I have seen and examined the patient. I agree with note above by ЕЛЕНА Kraft except as noted below. HPI Pt denies abd pain. CT a/p liver fatty vs hepatocellular disease lung nodule, pleural effusions, distended GB. CMV IgM normal. PE Abdomen pos bs soft, no guarding nor rebound A/P elevated LFTS unclear etiology, worse today, serologies for PBC and autoimmune hepatitis pending Fe def anemia---outpt workup ? myeloproliferative process in bone marrow--workup per hospitalist lung nodule--workup per hospitalist Subjective Patient awake and alert this morning. Unfortunately had episode of explosive diarrhea incontinence this morning while drinking contrast for CT scan. States she is wobbly but not as bad as she was previously. Denies any abdominal pain nausea or vomiting. She is frustrated this morning. Review of Systems Review of Systems: All systems reviewed & are unremarkable except as noted in HPI & below Physical Exam Constitutional: WD/WN, vitals as above Gastrointestinal (Abdomen): Inspection/Auscultation: abdomen normal to inspection and normal bowel sounds; abdomen not distended Percussion/Palpation: abdomen nontender, no guarding, no hepatosplenomegaly and no ascites Skin: no jaundice Results & Data ([facility]) Vital Signs (Past 12 Hours) Vital Signs Temp Pulse Resp BP BP Pulse Ox 08/01/21 07:47 36.4 C L 57 L 16 146/97 H 96 07/31/21 23:02 36.5 C 54 L 16 95/67 L 95 Laboratory Results Laboratory Results - last 24 hr 07/31/21 07/31/21 07/31/21 05:41 08:02 10:02 WBC RBC Hgb Hct MCV MCH MCHC RDW Std Deviation RDW Coeff of Tanya Plt Count MPV Immature Gran % (Auto) Neut % (Auto) Lymph % (Auto) Maury % (Auto) Eos % (Auto) Baso % (Auto) Neut # (Auto) Lymph # (Auto) Maury # (Auto) Eos # (Auto) Baso # (Auto) Immature Gran # (Auto) Absolute Nucleated RBC Nucleated RBC % (auto) Polychromasia Anisocytosis Spherocytes [place] Bodies Echinocytes Schistocytes Peripher Smr Path Cons Cancelled PT INR Sodium Potassium Chloride Carbon Dioxide Anion Gap BUN Creatinine Est Cr Clr Drug Dosing Est GFR ( Amer) Est GFR (Non-Af Amer) BUN/Creatinine Ratio Glucose Calcium Total Bilirubin AST ALT Alkaline Phosphatase Total Protein Albumin Globulin Albumin/Globulin Ratio Urine Color Urine Appearance Urine pH Ur Specific [place] Urine Protein Urine Glucose (UA) Urine Ketones Urine Blood Urine Nitrite Urine Bilirubin Urine Urobilinogen Ur Leukocyte Esterase Urine WBC (Auto) Urine RBC (Auto) U Hyaline Cast (Auto) U Epithel Cells (Auto) Urine Bacteria (Auto) Ur Random Creatinine Ur Random Sodium CMV IgM Ab Monoscreen Negative 07/31/21 07/31/21 07/31/21 10:02 10:30 10:30 WBC RBC Hgb Hct MCV MCH MCHC RDW Std Deviation RDW Coeff of Tanya Plt Count MPV Immature Gran % (Auto) Neut % (Auto) Lymph % (Auto) Maury % (Auto) Eos % (Auto) Baso % (Auto) Neut # (Auto) Lymph # (Auto) Maury # (Auto) Eos # (Auto) Baso # (Auto) Immature Gran # (Auto) Absolute Nucleated RBC Nucleated RBC % (auto) Polychromasia Anisocytosis Spherocytes [place] Bodies Echinocytes Schistocytes Peripher Smr Path Cons PT INR Sodium Potassium Chloride Carbon Dioxide Anion Gap BUN Creatinine Est Cr Clr Drug Dosing Est GFR ( Amer) Est GFR (Non-Af Amer) BUN/Creatinine Ratio Glucose Calcium Total Bilirubin AST ALT Alkaline Phosphatase Total Protein Albumin Globulin Albumin/Globulin Ratio Urine Color Yellow Urine Appearance Clear Urine pH 5.0 Ur Specific [place] 1.008 Urine Protein 1+ H Urine Glucose (UA) Negative Urine Ketones Negative Urine Blood Negative Urine Nitrite Negative Urine Bilirubin Negative Urine Urobilinogen Negative Ur Leukocyte Esterase Negative Urine WBC (Auto) 1-5 Urine RBC (Auto) 0-4 U Hyaline Cast (Auto) 1-5 U Epithel Cells (Auto) 5-10 H Urine Bacteria (Auto) Negative Ur Random Creatinine 30.3 Ur Random Sodium 24 CMV IgM Ab Pending Monoscreen 08/01/21 08/01/21 08/01/21 06:20 07:55 07:55 WBC 9.52 RBC 4.25 Hgb 10.9 L Hct 34.8 L MCV 81.9 MCH 25.6 MCHC 31.3 L RDW Std Deviation 58.6 H RDW Coeff of Tanya 20.2 H Plt Count 155 MPV 10.2 Immature Gran % (Auto) 0.5 Neut % (Auto) 63.4 Lymph % (Auto) 23.0 Maury % (Auto) 10.4 Eos % (Auto) 2.1 Baso % (Auto) 0.6 Neut # (Auto) 6.03 Lymph # (Auto) 2.19 Maury # (Auto) 0.99 H Eos # (Auto) 0.20 Baso # (Auto) 0.06 Immature Gran # (Auto) 0.05 H Absolute Nucleated RBC 0.99 H Nucleated RBC % (auto) 10.3 Polychromasia 1+ Anisocytosis Present Spherocytes 2+ [place] Bodies 1+ Echinocytes 2+ Schistocytes 1+ Peripher Smr Path Cons PT 13.7 H INR 1.4 H Sodium Pending Potassium Pending Chloride Pending Carbon Dioxide Pending Anion Gap Pending BUN Pending Creatinine Pending Est Cr Clr Drug Dosing Pending Est GFR ( Amer) Pending Est GFR (Non-Af Amer) Pending BUN/Creatinine Ratio Pending Glucose Pending Calcium Pending Total Bilirubin Pending AST Pending ALT Pending Alkaline Phosphatase Pending Total Protein Pending Albumin Pending Globulin Pending Albumin/Globulin Ratio Pending Urine Color Urine Appearance Urine pH Ur Specific [place] Urine Protein Urine Glucose (UA) Urine Ketones Urine Blood Urine Nitrite Urine Bilirubin Urine Urobilinogen Ur Leukocyte Esterase Urine WBC (Auto) Urine RBC (Auto) U Hyaline Cast (Auto) U Epithel Cells (Auto) Urine Bacteria (Auto) Ur Random Creatinine Ur Random Sodium CMV IgM Ab Monoscreen
[2021-08-01 08:47] LABS: Albumin Level 2.7 gm/dl (3.4-5.0); Calcium 8.2 mg/dl (8.5-10.1); Creatinine Clr Calc Pharmacy 32.6 ml/min; Est GFR (African American) 51.4 ml/min; Est GFR (Non-African American) 44.4 ml/min; Potassium 4.4 mmol/L (3.5-5.1)
[2021-08-01 08:57] LABS: Albumin Globulin Ratio 0.6 (0.9-2); Bilirubin,Total 0.9 mg/dl (0.2-1); Globulin 4.2 gm/dl (2.5-4.0); Total Protein 6.9 gm/dl (6.4-8.2)
[2021-08-01] MEDS ORDERED: OPTIRAY 320 100ml IV ONE (09:04)
--- NOTE | 2021-08-01 09:44 | CT Scan Report ---
CT chest diagnostic w con CLINICAL HISTORY: eval T1 lesion, ?metastatic disease TECHNIQUE: Multidetector row helical CT of the chest was performed. Coronal and sagittal reformations were obtained. Automated dose lowering techniques and/or adjustment according to patient size were u tilized for this exam. Comparison: Comparison is made to CT chest 07/15/2014 FINDINGS: Lungs and pleura: Small bilateral pleural effusions are seen. Heart and pericardium: Cardiomegaly is seen with biatrial enlargement. Reflux of contrast into the in ferior vena cava is seen. Aortic valvular prosthesis is seen. Vessels: Moderate atherosclerotic changes in the aorta and coronary arteries. Mediastinum and keyana: Unremarkable. Chest wall and lower neck: Unremarkable. Abdomen: For findings below the diaphragm, please refer to CT of the abdomen dated the same. Bones: Heterogeneous appearance of multiple vertebral bodies, nonspecific. IMPRESSION: Heterogeneous appearance of multiple vertebral bodies. This is a nonspecific finding, however myelopr oliferative disease cannot be entirely excluded. ACT 112: Negative or not required by law. Electronically signed by: Gael Edgar M.D. 08/01/2021 9:43 AM
--- NOTE | 2021-08-01 10:02 | Cardiology Progress Note ---
Date of Service August 01, 2021 Assessment & Plan (1) Atrial fibrillation: Plan: -EKG performed yesterday notes sinus rhythm. -continue flecainide, metoprolol succinate, and apixaban. (2) H/O aortic valve replacement: Plan: -history of bicuspid aortic valve stenosis. -underwent placement of a bioprosthetic aortic valve, July 2014. -proper function on echocardiogram May 2019. (3) Nonischemic cardiomyopathy: Plan: -was present prior to her aortic valve replacement. -normal LV systolic function on echocardiogram May 2019. (4) Hypertension: Plan: -adequate control on current regimen. (5) Elevated LFTs: Plan: -workup in progress. Admission and Anticipated Discharge Date Admission Date: July 28, 2021 Subjective The patient is resting comfortably in bed without complaints of chest pain, d yspnea, or palpitations. We have discussed the fact that she is now in normal sinus rhythm. Physical Exam Physical Exam: In general this is a well-developed well-nourished white female in no acute distress. HEENT exam is negative. Neck reveals normal carotid upstrokes with a soft transmitted murmur. No JVD. There is no thyromegaly. Cardiovascular exam reveals a regular rhythm with a 1/6 systolic ejection murmur heard at the base. Valve sounds are crisp. No S3. Chest reveals a well-healed midline scar. Lungs are clear without rales, rhonchi, or wheezes. Abdomen is soft without bruits. Extremities reveal intact radial artery and posterior tibial pulses bilaterally. There is no peripheral edema. Results & Data ([facility]) Vital Signs (Past 12 Hours) Vital Signs Temp Pulse Resp BP BP Pulse Ox 08/01/21 07:47 36.4 C L 57 L 16 146/97 H 96 07/31/21 23:02 36.5 C 54 L 16 95/67 L 95 Diagnostic Findings EKG performed yesterday noted sinus bradycardia at 55 beats per minute. There was a first-degree AV block and poor R-wave progression across the anterior precordium. Compared with tracing done on July 27, sinus rhythm has replaced atrial fibrillation. PG Care Time/CCT Total # of Minutes Spent Total Time Spent with Patient: Total time spent is greater than 50% in coordination of care (as documented) at patient's floor/unit and/or counseling patient: Coding Level of Care Code 55564 Subseq Hosp Care Lvl 3 Diagnoses Atrial fibrillation I48.91 H/O aortic valve replacement Z95.2 Nonischemic cardiomyopathy I42.8 Hypertension I10 Elevated LFTs R79.89
--- NOTE | 2021-08-01 10:19 | CT Scan Report ---
CT abd pelvis oral and IV con CLINICAL HISTORY: transaminitis/?etiology -evaluate for metastatic disease COMPARISON STUDY: No previous studies for comparison. TECHNIQUE: Standard CT of the Abdomen and Pelvis was performed with IV contrast. A dose lowering shaista hnique was utilized adhering to the principles of ALARA. Contrast Volume: Optiray 320, 94 ml. The patient received oral contrast. FINDINGS: Lung base: There are moderately large bilateral pleural effusions with compressive atelectasis involv ing both lung bases. There is an 8 mm pleural-based nodular density seen adjacent to the right latera l chest wall involving the right middle lobe. No other definite nodular densities are identified. Hea rt size is mildly enlarged with aortic valve calcification. Abdominal cavity: There is no evidence for abdominal mass, adenopathy or ascites. There is diffuse an asarca present. Liver: There is diffuse decreased attenuation of the liver parenchyma characteristic of fatty infiltr ation versus hepatocellular disease. There is no evidence for enhancing mass lesion. 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 There is no enha ncing mass lesion. Pancreas: There is homogeneous attenuation of the pancreatic parenchyma. There is no evidence for mas s lesion or peripancreatic fluid collection. Gall Bladder: Gallbladder is distended with suspicion of pericholecystic fluid present. No calculi ar e seen. Gallbladder ultrasound history of choice for further evaluation. Adrenal glands: The adrenal glands are normal in size and attenuation. There is no evidence for enhan cing mass lesion. Kidneys: There is homogeneous attenuation of the renal parenchyma bilaterally. There is renal cortica l atrophy present. There is no evidence for renal calculus or hydronephrosis. There is no evidence fo r enhancing mass. Bowel: Oral contrast present in the stomach, throughout the small bowel and throughout the colon to t he level of the mid sigmoid colon. The bowel loops are normally placed within the abdomen and pelvis without evidence for dilatation or obstruction. There is no evidence for mass lesion. There are no in flammatory changes present. There is no evidence for free air. There is a normal appendix in the righ t lower quadrant. Bladder: The bladder is distended with no evidence for focal mass, calculus or diverticulum. : There is no evidence for pelvic mass or adenopathy. There is mild pelvic ascites of uncertain barbie ology. Vasculature: There is no evidence for aneurysmal dilatation of the abdominal aorta. Atherosclerotic c alcification is present. Osseous structures: There is no acute osseous pathology. Degenerative changes are seen within the spi ne. IMPRESSION: 1. Moderately large bilateral pleural effusions with compressive atelectasis at the lung bases. 2. There is also an 8 mm pleural-based pulmonary nodule within the right middle lobe. 3. Diffuse anasarca. 4. Mild pelvic ascites of uncertain etiology. 5. Distended gallbladder with suspicion of pericholecystic fluid. Gallbladder ultrasound would be the study of choice for further evaluation. 6. Additional nonacute findings as delineated above. ACT 112: Positive. There are findings on this exam that require communication between the performing entity and the patient following Patient Test Result Information Act ([place] Act 112) guidelines. Electronically signed by: Jaxon Sesay M.D. 08/01/2021 10:17 AM
[2021-08-01] MEDS: LOSARTAN POTASSIUM 50 MG TAB PO SCH (10:26)
[2021-08-01] MEDS: FERROUS SULFATE 325 MG TAB PO SCH (10:27)
[2021-08-01] MEDS: APIXABAN 5 MG TABLET PO SCH ×2 (10:27→19:24)
[2021-08-01] MEDS: FLECAINIDE ACETATE 100 MG TABLET PO SCH ×2 (10:27→19:24)
--- NOTE | 2021-08-01 13:14 | Hospitalist Progress Note ---
Date of Service August 01, 2021 Assessment & Plan (1) Elevated LFTs: Plan: Ms. Sethi 75 yo female with PMHx iron deficiency anemia, afib on Eliquis, HTN, nonischemic cardiomyopathy, bicuspid aortic valve s/p aortic valve replacement, recent diagnosis of Hep A infection 1 month ago presented to ED with elevated LFTs and fatigue. 1. Elevated LFTs -Hepatitis A IgM neg -Awaiting ART, anti-smooth, anti-mitochondrial, p-anca to r/u autoimmunce etiology -Per GI: Autoimmune work-up in progress; GGT labs still pending -CMV, mono labs ordered; negative for mono, CMV still pending -trend LFTs, INR -GI more certain that this picture is likely autoimmune, in which case she would need to be started on steroids, hence her continued stay. -Awaiting results from autoimmune work-up, though would consider discharging her home, with plans for outpatient labs every 2 days until work-up completed. 2. Acute kidney injury -Creatinine improvement to 1.21, down from 1.3 the day before -Currently on maintenance IVF (NSS at 80 mL/h) -Continue to trend creatinine. 2. Iron deficiency anemia -Hgb 8.8 in ED; 7.7 in clinic, hemoglobin on recheck (07/28) -Transfused patient with 2 units packed red blood cells (07/28), Hgb (07/29) 10.1 -Has been taking calcium supplements for years; interferes with iron absorption -ferritin level 33.1 -cont. iron supplementation -trend CBC 3. Hyponatremia -likely due to hypovolemic hyponatremia, appears clinically dry -(07/30) Na 122 -cont. LRs 90mls/hr -Has a baseline of 132-134 per old sodium measurements. -regular diet, trend CMP -salt TABS, p.o. repletion via diet 4) Asymptomatic UTI -UA showed pos leuk est. + nitrites -Rocephin x1 ED, discontinue antibiotics as she is asymptomatic. -WBC: 9.52 this morning, slightly elevated from 8.8 yesterday; will continue to monitor 5) h/o afib w/ RVR -asymptomatic -EKG: afib w/ RVR, nonspecific ST changes -trops negative -cont. flecainide -Held metoprolol this morning, as pulse was 51 this a.m. continue to hold until pressures, pulse necessitate restarting. Otherwise hold for now. -INR improved to 1.4 this morning, down from 1.7; continue to trend 6) HTN -restarted home losartan since less concern for GI bleed -Stopped metoprolol due to persistent bradycardia; pressures and pulse appears to be well controlled on home losartan; continue to monitor DVT ppx: SCDs FEN/GI: Regular diet, LRs 90mls/hr Code Status: Full Dispo: med/surg Admission and Anticipated Discharge Date Admission Date: July 28, 2021 Supervising Physician Co-Signing Physician Notes I personally examined the patient and verified all freeman points of history and exam, discussed case, and agree with decision making with Dr Mathew Generally feeling okayno acute physical complaints. Updated to the best my ability again, son present at the bedside. Vitals noted, in general she is awake and alert pleasant no distress. HEENT normocephalic atraumatic mucous membranes moist. Breathing unlabored no accessory muscle use good effort. Skin shows no rashes no pallor or icterus. Neuro without focal deficits. Marked transaminitisINR trended down some, which is quite reassuring. Transaminases may have reached a plateau, continue to trend. GI was able to discern that hep a test from June 28 was an IgG, rendering it not very helpful to the current situation. They are suspicious about autoimmune hepatitis, or possibly liver implications from what ever myeloproliferative process seems to possibly be appearing in her bone marrow. To that end, while initially entertaining hematology evaluation as an outpatient, given that GI has concerns it may directly pertain to her liver numbers, will ask for hematology opinion while she is here. If labs confirm autoimmune hepatitis, steroids. If situation continues to be difficult to elucidate, liver biopsy. Possible myeloproliferative processactually incidentally noted first on MRI pituitary which was done for elevated TSH/free T4. CT follow-up is again nondescript looking at her bones, but once again shows a nonspecific but potentially myeloproliferative process. Given the persistence of this finding, but the fact that is nonspecific, we initially discussed outpatient hematology evaluation. However, after discussion with gastroenterology, they do harbor concerns that it may tie together with the liver process that has led to her acute admission. Elevated TSH/high free [id number] true central hyperthyroidism versus possibly a inflammatory response/euthyroid sick type of an effect. Continue to follow clinically, not tachycardic or tremulous. 3 mm microadenoma possible, although does not seem to be overtly obviously clear. Treat acute situation, monitor, repeat TSH/free T4 in about a month, further work-up from there if this persists Acute CVA incidentally noted on MRI - secondary w/u and management (although can be done as outpt depending on clinical progress of other issues) Subjective Patient resting comfortably today. No acute events overnight. No complaints at this time. Patient wanted updates on her situation. Review of Systems Review of Systems: All systems reviewed & are unremarkable except as noted in HPI & below Physical Exam Constitutional: WD/WN, vitals as above Respiratory: normal respiratory effort, lungs clear to auscultation Cardiovascular: RRR, no murmur, no edema Gastrointestinal (Abdomen): normal bowel sounds, soft, nontender, no hepatosplenomegaly Results & Data Results & Data ([facility]) Vital Signs (Past 12 Hours) Vital Signs Temp Pulse Resp BP Pulse Ox 08/01/21 07:47 36.4 C L 57 L 16 146/97 H 96 Resident Activity Tracking Resident Involvement: Resident Care Provided Care Provided: Adult Hospital Medicine
--- NOTE | 2021-08-01 17:47 | Billing Data ---
Date of Service August 01, 2021 Coding Level of Care Code 93574 Subseq Hosp Care Lvl 3
[2021-08-01 20:11] LABS: INR 1.4 (0.9-1.1)
[2021-08-02 02:20] LABS: ANCA Screen Negative (Negative); Anti Mitochondrial Antibody NEGATIVE (NEGATIVE); Anti Nuclear Antibody Screen NEGATIVE (NEGATIVE)
[2021-08-02] MEDS: SODIUM CHLORIDE 0.9% 1000ML 1,000 ML IV SCH (05:44)
[2021-08-02 07:48] LABS: Mean Corpuscular Hgb Conc 31.7 g/dL (32-36); Nucleated RBC # (auto) 0.82 K/uL (0-0); Nucleated RBC % (auto) 7.4 %
[2021-08-02 07:57] LABS: Hemoglobin 11.1 g/dL (12.0-16.0); Mean Corpuscular Hemoglobin 26.1 pg (25-34); Mean Corpuscular Volume 82.4 fL (80-100); RDW Coefficient of Variation 20.4 % (11.5-14.5); RDW Standard Deviation 60.1 fL (36.4-46.3); Red Blood Count 4.25 M/uL (4.2-5.4); White Blood Count 11.17 K/uL (4.8-10.8)
[2021-08-02 08:01] LABS: INR 1.4 (0.9-1.1); Prothrombin Time 13.4 Seconds (9.0-12.0)
--- NOTE | 2021-08-02 08:02 | Gastroenterology Progress Note ---
Date of Service August 02, 2021 Assessment & Plan (1) Elevated LFTs: Plan: Elevated LFTs: Significantly elevated liver function testing results.Improving today. ART, AMA, f actin are negative. Negative hepatitis A/B/C serologies. Negative mono and CMV.PT/INR stable, continue to monitor daily. Continue supportive care measures. Pharmacy reviewed medication list for possible liver toxicity. No significant medication risks outside of acetaminophen. Recommend US guided liver biopsy. Discussed with patient today who is agreeable. Would like to wait until tomorrow so she can talk to her family. Spoke to Dr. Meneses with update - plan likely discharge with close outpatient monitoring once liver biopsy is completed tomorrow ? marrow proliferative process--workup per hospitalist but this may impact liver Anemia: Counts are stable presently. Heme negative presently. Transfuse as needed. Outpatient endoscopic work-up pending. pulmonary nodule: per hospitalist team Please refer to supervising physician addendum for further recommendations. (2) Anemia: Admission and Anticipated Discharge Date Admission Date: July 28, 2021 Supervising Physician Co-Signing Physician Notes I have seen and examined the patient. I agree with note above by ЕЛЕНА Kraft except as noted below. HPI Pt denies abd pain. LFTs better. Duplex US no evidence of portal vein or hepatic vein thrombus. Serologies negative PE Abdomen pos bs, soft. A/P elevated LFTS---liver bx recommended Fe def anemia---endoscopic workup as outpt. Subjective The patient is awake alert and oriented this morning. She reports that she was able to get some sleep overnight. Denies any abdominal pain, nausea or vomiting this morning. Review of Systems Review of Systems: All systems reviewed & are unremarkable except as noted in HPI & below Physical Exam Constitutional: WD/WN, vitals as above Gastrointestinal (Abdomen): Inspection/Auscultation: abdomen normal to inspection and normal bowel sounds; abdomen not distended Percussion/Palpation: abdomen nontender, no guarding, no hepatosplenomegaly and no ascites Skin: no jaundice Results & Data ([facility]) Vital Signs (Past 12 Hours) Vital Signs Temp Pulse Pulse Resp BP BP Pulse Ox 08/02/21 07:18 37.2 C 72 16 156/117 H 145/108 H 96 08/01/21 20:52 36.5 C 73 16 136/98 97 Laboratory Results Laboratory Results - last 24 hr 12/05/21 12/06/21 12/07/21 06:54 10:02 07:55 WBC RBC Hgb Hct MCV MCH MCHC RDW Std Deviation RDW Coeff of Tanya Plt Count MPV Immature Gran % (Auto) Neut % (Auto) Lymph % (Auto) Reagan % (Auto) Eos % (Auto) Baso % (Auto) Neut # (Auto) Lymph # (Auto) Reagan # (Auto) Eos # (Auto) Baso # (Auto) Immature Gran # (Auto) Absolute Nucleated RBC Nucleated RBC % (auto) Platelet Estimate Polychromasia Anisocytosis Spherocytes [place]ner[place] Bodies Echinocytes Acanthocytes (Spur) PT INR Sodium 125 L Potassium 4.4 Chloride 96 L Carbon Dioxide 18 L Anion Gap 11.0 BUN 30 H Creatinine 1.21 H Est Cr Clr Drug Dosing 32.6 Est GFR ( Amer) 51.4 Est GFR (Non-Af Amer) 44.4 BUN/Creatinine Ratio 25.0 H Glucose 100 H Calcium 8.2 L Total Bilirubin 0.9 AST 1075 H ALT 1270 H Alkaline Phosphatase 293 H D Total Protein 6.9 D Albumin 2.7 L Globulin 4.2 H Albumin/Globulin Ratio 0.6 L ART Screen NEGATIVE ANCA Negative Anti-Mitochondrial Ab NEGATIVE Actin IgG Antibody <20 CMV IgM Ab <30.00 08/01/21 08/02/21 08/02/21 19:48 07:33 07:33 WBC RBC Hgb Hct MCV MCH MCHC RDW Std Deviation RDW Coeff of Tanya Plt Count MPV Immature Gran % (Auto) Neut % (Auto) Lymph % (Auto) Reagan % (Auto) Eos % (Auto) Baso % (Auto) Neut # (Auto) Lymph # (Auto) Reagan # (Auto) Eos # (Auto) Baso # (Auto) Immature Gran # (Auto) Absolute Nucleated RBC Nucleated RBC % (auto) Platelet Estimate Polychromasia Anisocytosis Spherocytes [place] Bodies Echinocytes Acanthocytes (Spur) PT 14.0 H 13.4 H INR 1.4 H 1.4 H Sodium 126 L Potassium 4.2 Chloride 99 Carbon Dioxide 16 L Anion Gap 11.0 BUN 21 H Creatinine 0.98 Est Cr Clr Drug Dosing 40.2 Est GFR ( Amer) 66.3 Est GFR (Non-Af Amer) 57.2 BUN/Creatinine Ratio 21.0 H Glucose 111 H Calcium 8.1 L Total Bilirubin 1.2 H AST 633 H ALT 920 H Alkaline Phosphatase 251 H Total Protein 5.9 L Albumin 2.2 L Globulin 3.7 Albumin/Globulin Ratio 0.6 L ART Screen ANCA Anti-Mitochondrial Ab Actin IgG Antibody CMV IgM Ab 08/02/21 07:33 WBC 11.17 H RBC 4.25 Hgb 11.1 L Hct 35.0 L MCV 82.4 MCH 26.1 MCHC 31.7 L RDW Std Deviation 60.1 H RDW Coeff of Tanya 20.4 H Plt Count 126 L MPV 9.3 Immature Gran % (Auto) 0.3 Neut % (Auto) 82.7 Lymph % (Auto) 9.5 Reagan % (Auto) 6.6 Eos % (Auto) 0.4 Baso % (Auto) 0.5 Neut # (Auto) 9.23 H Lymph # (Auto) 1.06 L Reagan # (Auto) 0.74 H Eos # (Auto) 0.05 Baso # (Auto) 0.06 Immature Gran # (Auto) 0.03 H Absolute Nucleated RBC 0.82 H Nucleated RBC % (auto) 7.4 Platelet Estimate Decreased L Polychromasia 1+ Anisocytosis Present Spherocytes 1+ [place] Bodies 1+ Echinocytes 1+ Acanthocytes (Spur) 1+ PT INR Sodium Potassium Chloride Carbon Dioxide Anion Gap BUN Creatinine Est Cr Clr Drug Dosing Est GFR ( Amer) Est GFR (Non-Af Amer) BUN/Creatinine Ratio Glucose Calcium Total Bilirubin AST ALT Alkaline Phosphatase Total Protein Albumin Globulin Albumin/Globulin Ratio ART Screen ANCA Anti-Mitochondrial Ab Actin IgG Antibody CMV IgM Ab Diagnostic Findings Abdomen/Pelvis CT 07/31/21 20:13 CT abd pelvis oral and IV con CLINICAL HISTORY: transaminitis/?etiology -evaluate for metastatic disease COMPARISON STUDY: No previous studies for comparison. TECHNIQUE: Standard CT of the Abdomen and Pelvis was performed with IV contrast. A dose lowering technique was utilized adhering to the principles of ALARA. Contrast Volume: Optiray 320, 94 ml. The patient received oral contrast. FINDINGS: Lung base: There are moderately large bilateral pleural effusions with compressive atelectasis involving both lung bases. There is an 8 mm pleural- based nodular density seen adjacent to the right lateral chest wall involving the right middle lobe. No other definite nodular densities are identified. Heart size is mildly enlarged with aortic valve calcification. Abdominal cavity: There is no evidence for abdominal mass, adenopathy or ascites. There is diffuse anasarca present. Liver: There is diffuse decreased attenuation of the liver parenchyma characteristic of fatty infiltration versus hepatocellular disease. There is no evidence for enhancing mass lesion. 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 There is no enhancing mass lesion. Pancreas: There is homogeneous attenuation of the pancreatic parenchyma. There is no evidence for mass lesion or peripancreatic fluid collection. Gall Bladder: Gallbladder is distended with suspicion of pericholecystic fluid present. No calculi are seen. Gallbladder ultrasound history of choice for further evaluation. Adrenal glands: The adrenal glands are normal in size and attenuation. There is no evidence for enhancing mass lesion. Kidneys: There is homogeneous attenuation of the renal parenchyma bilaterally. There is renal cortical atrophy present. There is no evidence for renal calculus or hydronephrosis. There is no evidence for enhancing mass. Bowel: Oral contrast present in the stomach, throughout the small bowel and throughout the colon to the level of the mid sigmoid colon. The bowel loops are normally placed within the abdomen and pelvis without evidence for dilatation or obstruction. There is no evidence for mass lesion. There are no inflammatory changes present. There is no evidence for free air. There is a normal appendix in the right lower quadrant. Bladder: The bladder is distended with no evidence for focal mass, calculus or diverticulum. : There is no evidence for pelvic mass or adenopathy. There is mild pelvic ascites of uncertain etiology. Vasculature: There is no evidence for aneurysmal dilatation of the abdominal aorta. Atherosclerotic calcification is present. Osseous structures: There is no acute osseous pathology. Degenerative changes are seen within the spine. IMPRESSION: 1. Moderately large bilateral pleural effusions with compressive atelectasis at the lung bases. 2. There is also an 8 mm pleural-based pulmonary nodule within the right middle lobe. 3. Diffuse anasarca. 4. Mild pelvic ascites of uncertain etiology. 5. Distended gallbladder with suspicion of pericholecystic fluid. Gallbladder ultrasound would be the study of choice for further evaluation. 6. Additional nonacute findings as delineated above. ACT 112: Positive. There are findings on this exam that require communication between the performing entity and the patient following Patient Test Result Information Act ([place] Act 112) guidelines. Electronically signed by: Jaxon Sesay M.D. 08/01/2021 10:[address] 07/31/21 20:46 CT chest diagnostic w con CLINICAL HISTORY: eval T1 lesion, ?metastatic disease TECHNIQUE: Multidetector row helical CT of the chest was performed. Coronal and sagittal reformations were obtained. Automated dose lowering techniques and/or adjustment according to patient size were utilized for this exam. Comparison: Comparison is made to CT chest 07/15/2014 FINDINGS: Lungs and pleura: Small bilateral pleural effusions are seen. Heart and pericardium: Cardiomegaly is seen with biatrial enlargement. Reflux of contrast into the inferior vena cava is seen. Aortic valvular prosthesis is seen. Vessels: Moderate atherosclerotic changes in the aorta and coronary arteries. Mediastinum and keyana: Unremarkable. Chest wall and lower neck: Unremarkable. Abdomen: For findings below the diaphragm, please refer to CT of the abdomen dated the same. Bones: Heterogeneous appearance of multiple vertebral bodies, nonspecific. IMPRESSION: Heterogeneous appearance of multiple vertebral bodies. This is a nonspecific finding, however myeloproliferative disease cannot be entirely excluded. ACT 112: Negative or not required by law. Electronically signed by: Gael Edgar M.D. 08/01/2021 9:43 AM
[2021-08-02 08:12] LABS: Acanthocytes 1+; Anisocytosis Present; Basophils # (auto) 0.06 K/uL (0-0.2); Basophils % (auto) 0.5 %; Echinocytes 1+; Eosinophils # (auto) 0.05 K/uL (0-0.5); Eosinophils % (auto) 0.4 %; Howell-Jolly Bodies 1+; Immature Granulocytes # (auto) 0.03 K/uL (0.00-0.02); Immature Granulocytes % (auto) 0.3 %; Lymphocytes # (auto) 1.06 K/uL (1.2-3.4); Lymphocytes % (auto) 9.5 %; Mean Platelet Volume 9.3 fL (7.4-10.4); Monocytes # (auto) 0.74 K/uL (0.11-0.59); Monocytes % (auto) 6.6 %; Neutrophils # (auto) 9.23 K/uL (1.4-6.5); Neutrophils % (auto) 82.7 %; Platelet Count 126 K/uL (130-400); Platelet Estimate Decreased (Normal); Polychromasia 1+; Spherocytes 1+
--- NOTE | 2021-08-02 08:12 | Ultrasound Report ---
US duplex portal hepatic veins CLINICAL HISTORY: Evaluate for portal vein thrombosis/transaminitis TECHNIQUE: Grayscale, color and spectral waveform Doppler examination of the abdomen was performed. Comparison: None available at the time of this dictation. FINDINGS: The hepatic veins, portal veins, IVC and splenic vein are patent with no thrombus identified. Flow is in the correct direction. Peak systolic velocity in the hepatic artery measures 18 cm/sec. Peak syst olic velocity in the main portal vein measures 18 cm/sec. No ascites is seen. The splenic vein in th e midline and hilum is patent with flow in the appropriate direction. IMPRESSION: No portal vein thrombosis. ACT 112: Negative or not required by law. Electronically signed by: Jaxon Sesay M.D. 08/02/2021 8:11 AM
[2021-08-02 08:27] LABS: Albumin Level 2.2 gm/dl (3.4-5.0); Calcium 8.1 mg/dl (8.5-10.1); Creatinine Clr Calc Pharmacy 40.2 ml/min; Est GFR (African American) 66.3 ml/min; Est GFR (Non-African American) 57.2 ml/min; Potassium 4.2 mmol/L (3.5-5.1)
[2021-08-02 08:30] LABS: Albumin Globulin Ratio 0.6 (0.9-2); Bilirubin,Total 1.2 mg/dl (0.2-1); Globulin 3.7 gm/dl (2.5-4.0); Total Protein 5.9 gm/dl (6.4-8.2)
[2021-08-02] MEDS: FLECAINIDE ACETATE 100 MG TABLET PO SCH ×2 (09:12→20:37)
[2021-08-02] MEDS: APIXABAN 5 MG TABLET PO SCH ×2 (09:12→20:37)
[2021-08-02] MEDS: FERROUS SULFATE 325 MG TAB PO SCH (09:12)
[2021-08-02] MEDS: LOSARTAN POTASSIUM 50 MG TAB PO SCH (09:13)
[2021-08-02] MEDS: METOPROLOL TARTRATE 25 MG TAB PO SCH (09:13)
[2021-08-02] MEDS ORDERED: LORazepam 1 MG/2 ML VIAL IV PRN (11:56)
--- NOTE | 2021-08-02 15:39 | Consultation Report ---
HEMATOLOGY CONSULTATION. DATE OF CONSULTATION: 08/02/2021. REASON FOR CONSULTATION: Possible myeloproliferative neoplasm. HISTORY OF PRESENT ILLNESS: The patient is a 75-year-old female who was admitted with complaints of worsening fatigue and elevated LFTs. About 1 month ago, patient had developed GI symptoms for which she was tested by her PCP for hepatitis A, which was positive. At that time, liver enzymes were also noted to be elevated and was subsequently followed by her PCP. Several weeks after this, liver enzymes remained persistently elevated and she complained of worsening fatigue for which she presented to the ER. On admission, labs revealed elevated AST, ALT, alkaline phosphatase and low albumin of 2.4. Chest x-ray obtained on 07/27/2021 revealed cardiomegaly without radiographic evidence of congestive heart failure and trace pleural effusions. Liver ultrasound performed on 07/27/2021 was negative. Pituitary MRI performed on 07/30/2021 revealed heterogeneous marrow signal with pituitary MRI obtained on 07/30/2021 to evaluate abnormal thyroid function tests revealed heterogeneous marrow signal with multifocal T1 hypointense foci, which is nonspecific, but worrisome for marrow replacement or myeloproliferative process with etiologies such as metastatic disease, lymphoma/leukemia and myeloma within differential. On 07/31/2021, she underwent CT abdomen and pelvis which revealed moderately large bilateral pleural effusions with compressive atelectasis at the lung bases, 8 mm based pulmonary nodule within the right middle lobe, diffuse anasarca, mild pelvic ascites of uncertain etiology as well as distended gallbladder with suspicion of pericholecystic fluid. CT chest on 07/31/2021 revealed heterogeneous appearance of multiple vertebral bodies. Portal vein ultrasound revealed no evidence of portal vein thrombosis. Hematology was consulted for abnormal imaging findings suggestive of possible myeloproliferative process or metastatic disease. The patient endorses fatigue. She also endorses headaches, dizziness and occasional blurry vision. She denies chest pain, shortness of breath, abdominal pain, nausea, vomiting, diarrhea, constipation, significant weight loss, palpable lymphadenopathy or any other symptoms. She is not up to date with her colonoscopy or mammograms which she attributes to COVID-19 pandemic. PAST MEDICAL HISTORY: 1. Hypertension. 2. Nonischemic cardiomyopathy. 3. Seizures. 4. Aortic valve replacement. 5. Atrial fibrillation. PAST SURGICAL HISTORY: 1. History of aortic valve replacement. 2. History of cardiac catheterization. MEDICATIONS PRIOR TO ADMISSION: 1. Extra Strength Tylenol 500 mg p.o. q. 6 hours as needed. 2. Apixaban 5 mg p.o. b.i.d. 3. Flecainide 100 mg p.o. q.12 hours. 4. Metoprolol 150 mg p.o. daily. 5. Multivitamin one tablet p.o. daily. 6. Calcium plus vitamin D supplementation 1 tab p.o. daily. ALLERGIES: BUPIVACAINE. SOCIAL HISTORY: She is a former smoker. Drinks about 2-3 drinks of liquor daily, but states that she has quit since May this year. Denies illicit drug use or smoking. FAMILY HISTORY: She denies family history of malignancy. REVIEW OF SYSTEMS: CONSTITUTIONAL: She denies weight loss, night sweats or fever. CARDIOVASCULAR: Denies chest pain, palpitations, dizziness, or diaphoresis. RESPIRATORY: Denies shortness of breath, cough, or hemoptysis. GASTROINTESTINAL: Denies abdominal pain, nausea, vomiting, diarrhea, hematemesis. GENITOURINARY: Denies urinary frequency, hematuria or dysuria. NEUROLOGICAL: Endorses headaches, dizziness and occasional blurry vision. LYMPHATICS/HEMATOLOGIC: Denies abnormal bleeding or new adenopathy. PHYSICAL EXAMINATION: VITAL SIGNS: Blood pressure 156/117, heart rate 77, respiratory rate 16, temperature 37.2. Oxygen saturation 96% on room air. HEENT: Eyes were without conjunctivae, erythema or icterus. NECK: Negative for masses. RESPIRATORY: Lung sounds were reduced bilateral lower sorenson. CARDIOVASCULAR: 3/6 systolic ejection murmur heard. GASTROINTESTINAL: Abdomen is soft, nontender with no palpable hepatosplenomegaly. LYMPHATIC SYSTEM: There is no palpable peripheral lymphadenopathy. MUSCULOSKELETAL: Musculoskeletal system was concordant with age. EXTREMITIES: Negative for edema or erythema. LABORATORY DATA: From 08/02/2021, CBC revealed white cell count of 11,000 with hemoglobin of 11.1, hematocrit of 35, platelet count of 126. Chemistry significant for sodium of 126, BUN of 21 and creatinine of 0.98. Total bilirubin 1.2, AST 633, ALT 920, alkaline phosphatase 251. IMAGING STUDIES: Chest x-ray from 07/27/2021. Impression: 1. Cardiomegaly without radiographic evidence of congestive heart failure. 2. Trace pleural effusions. Liver ultrasound on 07/27/2021. Impression: Negative. Pituitary MRI on 07/30/2021. Impression: 1. Heterogeneous marrow signal with multifocal T1 hyperintense foci. This is nonspecific, but worrisome for a marrow replacement or myeloproliferative process. Etiology such as metastatic disease, lymphoma/leukemia and myeloma within the differential. 2. Possible 3 mm microadenoma within the right aspect of the pituitary gland. 3. 3 mm focus of restricted diffusion within the periventricular right temporal lobe suggestive of a small acute infarct. CT abdomen and pelvis on 07/31/2021. Impression: 1. Moderately large bilateral pleural effusions with compressive atelectasis at lung bases. 2. There is also an 8 mm pleural based nodule within the right middle lobe. 3. Diffuse anasarca. 4. Mild pelvic ascites of uncertain etiology. 5. Distended gallbladder with suspicion of pericholecystic fluid. Gallbladder ultrasound would be study of choice for further evaluation. Chest CT on 07/31/2021 Impression: Heterogeneous appearance of multiple vertebral bodies. This is a nonspecific finding, however, myeloproliferative disease cannot be entirely excluded. Portal vein ultrasound. Impression: No portal vein thrombosis. IMPRESSION: 1. Possible marrow replacement/myeloproliferative process noted on imaging. 2. Moderate/large bilateral pleural effusions. 3. Mild ascites. 4. Transaminitis of unclear etiology. 5. Distended gallbladder. 6. 8 mm pulmonary nodule. 7. Anasarca. A 75-year-old pleasant female who is admitted with worsening fatigue and found to have persistently elevated LFTs of unclear etiology. Imaging studies also demonstrated abnormal signaling in the bones suggestive of possible myeloproliferative process/infiltrative process. She is not up to date with age appropriate screening such as colonoscopy or mammogram. Patient is scheduled for liver biopsy today or tomorrow. Given imaging findings, I recommend workup for underlying malignancy such as multiple myeloma. As such, recommend obtaining labs including SPEP with RONEL, quantitative immunoglobulins, and serum free light chains to evaluate for plasma cell dyscrasia. Would also recommend checking tumor markers such as CEA, CA 19-9 and CA-125 to evaluate for solid tumor malignancies. She would benefit from nuclear medicine bone scan/PET CT upon discharge from hospital, and if this is positive, would require a bone marrow biopsy/bone biopsy at that time. PLAN: 1. Recommend obtaining labs today including SPEP with RONEL, quantitative immunoglobulins, serum free light chains. 2. Please also check tumor markers such as CA-125, CA 19-9 and CEA. 3. Recommend obtaining an bone scan/PET CT, which can be done as an outpatient. 4. Agree with liver biopsy. 5. May consider draining pleural effusion if she becomes symptomatic and if this is done, would recommend sending it for cytology. Thank you for this consult. Hematology will follow the patient while in the hospital. Please feel free to call if you have any further questions. Job ID: [id number] ISABELLA
--- NOTE | 2021-08-02 18:59 | Billing Data ---
Date of Service August 02, 2021 Coding Level of Care Code 02802 Subseq Hosp Care Lvl 3
--- NOTE | 2021-08-02 20:21 | Hospitalist Progress Note ---
Date of Service August 02, 2021 Assessment & Plan (1) Elevated LFTs: Plan: Ms. Sethi 75 yo female with PMHx iron deficiency anemia, afib on Eliquis, HTN, nonischemic cardiomyopathy, bicuspid aortic valve s/p aortic valve replacement, recent diagnosis of Hep A infection 1 month ago presented to ED with elevated LFTs and fatigue. 1. Elevated LFTs -Improvement in LFTs (AST today 633, down from 1025; ALT 920 today, down from 1270 -Autoimmune work-up/panel negative; mononucleosis test negative -Awaiting GGT, CMV labs -In light of negative autoimmune work-up, plan was to proceed liver biopsy, per GI. -However, autoimmune work-up done at [facility] was positive (1: 320), suggesting false negative autoimmune work-up in the hospital -Reevaluate treatment plan; likely administer steroids (in support of autoimmune hepatitis picture) -Pending GI approval of positive autoimmune work-up/cause of hepatitis: Plan to discharge after administration of steroids and follow-up outpatient with GI -Will touch base with GI to confirm treatment plan; if not, plan to proceed to liver biopsy as before (patient is aware and in agreement) 2. Acute kidney injury -Creatinine today 0.98, down from 1.21 yesterday; consider resolved -Currently on maintenance IVF (NSS at 80 mL/h); will continue in light of rising WBC -Trend a.m. creatinine 3. Iron deficiency anemia -Hgb 8.8 in ED; 7.7 in clinic, hemoglobin on recheck (07/28) -Transfused patient with 2 units packed red blood cells (07/28), Hgb (07/29) 10.1 -Has been taking calcium supplements for years; interferes with iron absorption -ferritin level 33.1 -cont. iron supplementation -trend CBC 4. Leukocytosis -WBC 11.17 today, up from 9.52 yesterday -Possible etiologies include urinary tract (bacteriuria already confirmed, though patient has been asymptomatic to date), pulmonary, or GI. -CRP elevated at 0.75, ESR within normal limits at 13; this suggests a burgeoning acute infectious process, though no correlation clinically at this time. -Patient is afebrile; no other signs of acute infection. Will continue to monitor -Continue IVF NSS overnight -Continue to trend CBCs 5. Hyponatremia -likely due to hypovolemic hyponatremia, appears clinically dry -(07/30) Na 122 -cont. LRs 90mls/hr -Has a baseline of 132-134 per old sodium measurements. -regular diet, trend CMP -salt TABS, p.o. repletion via diet 6. Asymptomatic UTI -UA showed pos leuk est. + nitrites -Rocephin x1 ED, discontinue antibiotics as she is asymptomatic. -WBC: 9.52 this morning, slightly elevated from 8.8 yesterday; will continue to monitor 7. H/o afib w/ RVR -asymptomatic -EKG: afib w/ RVR, nonspecific ST changes -trops negative -cont. flecainide -Held home metoprolol yesterday due to bradycardia; patient BP subsequently increased -Started on Lopressor 25 mg twice daily, with adjustments if necessary; consider adjusting home dose of Toprol (after consulting with Dr. Neal, her healthcare administration internship) -INR stable at 1.4 today; continue to trend 8. HTN -restarted home losartan since less concern for GI bleed -Stopped metoprolol due to persistent bradycardia; started on 25 mg Lopressor twice daily (see #5 above) DVT ppx: SCDs FEN/GI: Regular diet, LRs 90mls/hr Code Status: Full Dispo: med/surg Admission and Anticipated Discharge Date Admission Date: July 28, 2021 Supervising Physician Co-Signing Physician Notes I personally examined the patient and verified all freeman points of history and exam, discussed case, and agree with decision making with Dr Mathew Generally feeling okaystill no acute physical complaints. Updated to the best my ability, and discussed liver biopsy. Vitals noted, in general she is awake and alert pleasant no distress. HEENT normocephalic atraumatic mucous membranes moist. Breathing unlabored no accessory muscle use good effort. Skin shows no rashes no pallor or icterus. Neuro without focal deficits. Marked transaminitisetiology not entirely clear, in discussion with gastroenterology, liver biopsy could potentially be helpful. LFTs are trending down, which is reassuring, hopefully liver biopsy tomorrow, and then as long as she continues to feel well and numbers are stable or ongoing improvementhopefully then home after biopsy. Possible myeloproliferative processactually incidentally noted first on MRI pituitary which was done for elevated TSH/free T4. Heme-onc input appreciated, outpatient work-up/etc Elevated TSH/high free [id number] true central hyperthyroidism versus possibly a inflammatory response/euthyroid sick type of an effect. Continue to follow clinically, not tachycardic or tremulous. 3 mm microadenoma possible, although does not seem to be overtly obviously clear. Treat acute situation, monitor, repeat TSH/free T4 in about a month, further work-up from there if this persists Acute CVA incidentally noted on MRI - secondary w/u and management as outpatient Subjective No acute events overnight. Patient is awake and alert in bed this morning. Denies any abdominal pain, fever, dizziness, or weakness. She does endorse a slight headache, and she reports being hesitant to take the prescribed as needed Fioricet. She has no other complaints. Review of Systems Review of Systems: All systems reviewed & are unremarkable except as noted in HPI & below Physical Exam Constitutional: WD/WN, vitals as above Respiratory: normal respiratory effort, lungs clear to auscultation Cardiovascular: RRR, no murmur, no edema Gastrointestinal (Abdomen): normal bowel sounds, soft, nontender, no hepatosplenomegaly Resident Activity Tracking Resident Involvement: Resident Care Provided Care Provided: Adult Hospital Medicine
[2021-08-03 06:27] LABS: Mean Corpuscular Hgb Conc 30.9 g/dL (32-36)
[2021-08-03 06:39] LABS: INR 1.5 (0.9-1.1); Partial Thromboplastin Ratio 1.3; Partial Thromboplastin Time 33.9 Seconds (21.0-31.0); Prothrombin Time 14.3 Seconds (9.0-12.0)
[2021-08-03 07:06] LABS: Acanthocytes 1+; Anisocytosis Present; Basophils # (auto) 0.05 K/uL (0-0.2); Basophils % (auto) 0.6 %; Eosinophils # (auto) 0.14 K/uL (0-0.5); Eosinophils % (auto) 1.6 %; Hematocrit (blood only) 33.3 % (37-47); Hemoglobin 10.3 g/dL (12.0-16.0); Howell-Jolly Bodies 2+; Immature Granulocytes # (auto) 0.04 K/uL (0.00-0.02); Immature Granulocytes % (auto) 0.5 %; Lymphocytes # (auto) 1.56 K/uL (1.2-3.4); Lymphocytes % (auto) 17.8 %; Mean Corpuscular Hemoglobin 25.4 pg (25-34); Mean Corpuscular Volume 82.2 fL (80-100); Mean Platelet Volume 9.5 fL (7.4-10.4); Monocytes # (auto) 0.91 K/uL (0.11-0.59); Monocytes % (auto) 10.4 %; Neutrophils # (auto) 6.05 K/uL (1.4-6.5); Neutrophils % (auto) 69.1 %; Nucleated RBC # (auto) 1.46 K/uL (0-0); Nucleated RBC % (auto) 16.6 %; Platelet Count 113 K/uL (130-400); Platelet Estimate Decreased (Normal); Polychromasia 1+; RDW Coefficient of Variation 20.4 % (11.5-14.5); RDW Standard Deviation 60.9 fL (36.4-46.3); Red Blood Count 4.05 M/uL (4.2-5.4); Spherocytes 1+; Target Cells 1+; White Blood Count 8.75 K/uL (4.8-10.8)
[2021-08-03 07:31] LABS: Albumin Level 2.4 gm/dl (3.4-5.0); BUN Creatinine Ratio 22.4 (10-20); Calcium 8.2 mg/dl (8.5-10.1); Creatinine Clr Calc Pharmacy 40.6 ml/min; Est GFR (African American) 67.2 ml/min; Est GFR (Non-African American) 57.9 ml/min; Potassium 4.3 mmol/L (3.5-5.1)
[2021-08-03 07:33] LABS: Albumin Globulin Ratio 0.7 (0.9-2); Bilirubin,Total 0.9 mg/dl (0.2-1); Globulin 3.4 gm/dl (2.5-4.0); Total Protein 5.8 gm/dl (6.4-8.2)
--- NOTE | 2021-08-03 07:52 | Gastroenterology Progress Note ---
Date of Service August 03, 2021 Assessment & Plan (1) Elevated LFTs: Plan: Elevated LFTs: Liiver function testing remain elevated but improving. ART, AMA, f actin are negative. Negative hepatitis A/B/C serologies. Negative mono and CMV.PT/INR stable, continue to monitor daily. Continue supportive care measures. Pharmacy reviewed medication list for possible liver toxicity. No significant medication risks outside of acetaminophen. Duplex US no evidence of portal vein or hepatic vein thrombus.Recommend US guided liver biopsy. Patient is agreeable.Plan was for today but patient is on Eliquis which will need held 48 hours prior to procedure.Messaged Dr. Meneses with update - can plan for outpatient liver biopsy next week if plan is still to discharge. ? marrow proliferative process: workup per hospitalist but this may impact liver, heme/onc consulted by primary team Anemia: Heme negative presently. Transfuse as needed. Outpatient endoscopic work-up needed, will arrange follow-up at discharge. pulmonary nodule: per hospitalist team Please refer to supervising physician addendum for further recommendations. (2) Anemia: Admission and Anticipated Discharge Date Admission Date: July 28, 2021 Supervising Physician Co-Signing Physician Notes Assessment and Plan reviewed with ЕЛЕНА Kraft, and Raymond Aguirre MD, and the medical record reviewed. The patient was not interviewed or examined due to discharge prior to rounds today. I agree with the plan of care as outlined by Gisele Osorio, and have no other suggestions or recommendations. Subjective Patient awake alert and oriented sitting in bed and position of comfort this morning. She expresses frustration as liver biopsy will need deferred as she is on Eliquis and this needs held 48 hours prior to procedure. Otherwise she reports that she remains wobbly but not as bad as when she was admitted. She states she has a very decreased appetite mostly because the food is in good but otherwise just because she is not hungry. Has not had a weight check in several days. She denies any abdominal pain, nausea, vomiting. Review of Systems Review of Systems: All systems reviewed & are unremarkable except as noted in HPI & below Physical Exam Constitutional: WD/WN, vitals as above Gastrointestinal (Abdomen): Inspection/Auscultation: abdomen normal to inspection and normal bowel sounds; abdomen not distended Percussion/Palpation: abdomen nontender, no guarding, no hepatosplenomegaly and no ascites Skin: no jaundice Results & Data ([facility]) Vital Signs (Past 12 Hours) Vital Signs Temp Pulse Resp BP Pulse Ox 08/02/21 22:27 36.2 C L 72 18 117/86 95 08/02/21 20:36 78 125/91 95 Laboratory Results Laboratory Results - last 24 hr 08/02/21 08/02/21 08/02/21 07:33 07:33 07:33 WBC 11.17 H RBC 4.25 Hgb 11.1 L Hct 35.0 L MCV 82.4 MCH 26.1 MCHC RDW Std Deviation 60.1 H RDW Coeff of Tanya 20.4 H Plt Count 126 L MPV 9.3 Immature Gran % (Auto) 0.3 Neut % (Auto) 82.7 Lymph % (Auto) 9.5 Alger % (Auto) 6.6 Eos % (Auto) 0.4 Baso % (Auto) 0.5 Neut # (Auto) 9.23 H Lymph # (Auto) 1.06 L Alger # (Auto) 0.74 H Eos # (Auto) 0.05 Baso # (Auto) 0.06 Immature Gran # (Auto) 0.03 H Absolute Nucleated RBC Nucleated RBC % (auto) Platelet Estimate Decreased L Polychromasia 1+ Anisocytosis Present Spherocytes 1+ Target Cells Cisneros-Onaway Bodies 1+ Echinocytes 1+ Acanthocytes (Spur) 1+ ESR PT 13.4 H INR 1.4 H APTT PTT Ratio Sodium 126 L Potassium 4.2 Chloride 99 Carbon Dioxide 16 L Anion Gap 11.0 BUN 21 H Creatinine 0.98 Est Cr Clr Drug Dosing 40.2 Est GFR ( Amer) 66.3 Est GFR (Non-Af Amer) 57.2 BUN/Creatinine Ratio 21.0 H Glucose 111 H Calcium 8.1 L Total Bilirubin 1.2 H AST 633 H ALT 920 H Alkaline Phosphatase 251 H C-Reactive Protein Total Protein 5.9 L Albumin 2.2 L Globulin 3.7 Albumin/Globulin Ratio 0.6 L 08/02/21 08/02/21 08/03/21 07:33 07:33 06:01 WBC RBC Hgb Hct MCV MCH MCHC RDW Std Deviation RDW Coeff of Tanya Plt Count MPV Immature Gran % (Auto) Neut % (Auto) Lymph % (Auto) Alger % (Auto) Eos % (Auto) Baso % (Auto) Neut # (Auto) Lymph # (Auto) Alger # (Auto) Eos # (Auto) Baso # (Auto) Immature Gran # (Auto) Absolute Nucleated RBC Nucleated RBC % (auto) Platelet Estimate Polychromasia Anisocytosis Spherocytes Target Cells Cisneros-[place]na[place] Bodies Echinocytes Acanthocytes (Spur) ESR 13 PT 14.3 H INR 1.5 H APTT 33.9 H PTT Ratio 1.3 Sodium Potassium Chloride Carbon Dioxide Anion Gap BUN Creatinine Est Cr Clr Drug Dosing Est GFR ( Amer) Est GFR (Non-Af Amer) BUN/Creatinine Ratio Glucose Calcium Total Bilirubin AST ALT Alkaline Phosphatase C-Reactive Protein 0.75 H Total Protein Albumin Globulin Albumin/Globulin Ratio 08/03/21 08/03/21 06:01 06:01 WBC 8.75 RBC 4.05 L Hgb 10.3 L Hct 33.3 L MCV 82.2 MCH 25.4 MCHC 30.9 L RDW Std Deviation 60.9 H RDW Coeff of Tanya 20.4 H Plt Count 113 L MPV 9.5 Immature Gran % (Auto) 0.5 Neut % (Auto) 69.1 Lymph % (Auto) 17.8 [place] % (Auto) 10.4 Eos % (Auto) 1.6 Baso % (Auto) 0.6 Neut # (Auto) 6.05 Lymph # (Auto) 1.56 Alger # (Auto) 0.91 H Eos # (Auto) 0.14 Baso # (Auto) 0.05 Immature Gran # (Auto) 0.04 H Absolute Nucleated RBC 1.46 H Nucleated RBC % (auto) 16.6 Platelet Estimate Decreased L Polychromasia 1+ Anisocytosis Present Spherocytes 1+ Target Cells 1+ Cisneros-[place]naway Bodies 2+ Echinocytes Acanthocytes (Spur) 1+ ESR PT INR APTT PTT Ratio Sodium 125 L Potassium 4.3 Chloride 96 L Carbon Dioxide 18 L Anion Gap 11.0 BUN 22 H Creatinine 0.97 Est Cr Clr Drug Dosing 40.6 Est GFR ( Amer) 67.2 Est GFR (Non-Af Amer) 57.9 BUN/Creatinine Ratio 22.4 H Glucose 103 H Calcium 8.2 L Total Bilirubin 0.9 AST 452 H ALT 767 H Alkaline Phosphatase 249 H C-Reactive Protein Total Protein 5.8 L Albumin 2.4 L Globulin 3.4 Albumin/Globulin Ratio 0.7 L Diagnostic Findings Portal Vein US 08/01/21 16:51 US duplex portal hepatic veins CLINICAL HISTORY: Evaluate for portal vein thrombosis/transaminitis TECHNIQUE: Grayscale, color and spectral waveform Doppler examination of the abdomen was performed. Comparison: None available at the time of this dictation. FINDINGS: The hepatic veins, portal veins, IVC and splenic vein are patent with no thrombus identified. Flow is in the correct direction. Peak systolic velocity in the hepatic artery measures 18 cm/sec. Peak systolic velocity in the main portal vein measures 18 cm/sec. No ascites is seen. The splenic vein in the midline and hilum is patent with flow in the appropriate direction. IMPRESSION: No portal vein thrombosis. ACT 112: Negative or not required by law. Electronically signed by: Jaxon Sesay M.D. 08/02/2021 8:11 AM
[2021-08-03] MEDS: METOPROLOL TARTRATE 25 MG TAB PO SCH (08:32)
[2021-08-03] MEDS: FLECAINIDE ACETATE 100 MG TABLET PO SCH (08:32)
[2021-08-03] MEDS: FERROUS SULFATE 325 MG TAB PO SCH (08:32)
[2021-08-03] MEDS: LOSARTAN POTASSIUM 50 MG TAB PO SCH (08:33)
[2021-08-03 09:20] LABS: Immunoglobulin M 65.1 mg/dl (40-230)
--- NOTE | 2021-08-03 13:38 | Discharge Summary ---
Date of Service August 03, 2021 Admission Exam Per Admitting Provider Constitutional: thin, in no acute distress, pleasant and normal affect, intact memory. Vitals as above. HEENT: No scleral injection or discharge. anicteric. Moist mucous membranes. Clear oropharynx. No exudate. No lesions. Tympanic membranes are clear bilaterally. Neck: Supple without lymphadenopathy or thyromegaly. Trachea midline. Lungs: Clear to auscultation bilaterally with good effort. Cardiac: Irregularly irregular rhythm. No murmurs. No extremity edema. Abdomen: Bowel sounds present. Soft, nontender, and nondistended.No guarding. No masses. No hepatosplenomegaly. Negative murphys. No rebound tenderness. MSK: No cyanosis or clubbing. Extremities motor strength 5/5. Skin: No rashes, warm, dry. Neurologic: Grossly intact cranial nerves. PERRL. Principal Diagnosis Elevated transaminases/transaminitis Discharge Exam Constitutional WD/WN, vitals as above Respiratory normal respiratory effort, lungs clear to auscultation Auscultation: + crackles (Mild; left-sided basilar; all other lung sorenson clear to auscultation) Cardiovascular RRR, no murmur, no edema Rate/Rhythm: regular rate and regular rhythm Heart Sounds: + murmur Gastrointestinal (Abdomen) normal bowel sounds, soft, nontender, no hepatosplenomegaly Discharge Data Allergies Allergy/AdvReac Type Severity Reaction Status Date / Time bupivacaine Allergy Intermediate possibly Verified 07/28/21 08:22 caused seizures eggplant Allergy Mild MOUTH Verified 07/28/21 08:22 TINGLES Consultations 07/27/21 22:16 ED Decision to Admit Stat 07/30/21 10:25 Consult Gastroenterology Routine 07/30/21 16:03 Consult Cardiology Routine 08/01/21 16:51 Consult Hematology Routine Ordered Studies 07/27/21 21:36 US liver Urgent 07/30/21 16:17 MR brain pituitary wo/w con Routine 07/31/21 20:13 CT abd pelvis oral and IV con Routine 07/31/21 20:46 CT chest diagnostic w con Routine 08/01/21 16:51 US duplex portal hepatic veins Routine Hospital Course (1) Elevated LFTs: Ms. Sethi 75 yo female with PMHx iron deficiency anemia, afib on Eliquis, HTN, nonischemic cardiomyopathy, bicuspid aortic valve s/p aortic valve replacement, recent diagnosis of Hep A infection 1 month ago presented to ED with elevated LFTs and fatigue. 1. Elevated LFTs -Improvement in LFTs (AST today 633, down from 1025; ALT 920 today, down from 1270 -Autoimmune work-up/panel negative; mononucleosis test negative -Awaiting GGT, CMV labs -In light of negative autoimmune work-up, plan was to proceed liver biopsy, per GI. -However, autoimmune work-up done at [facility] was positive (1: 320), suggesting false negative autoimmune work-up in the hospital -Plan is to proceed with liver biopsy on outpatient basis on Saturday. -Plan to resume Eliquis upon discharge, stop taking before Saturday, and hold until liver biopsy on Saturday. 2. Acute kidney injury -Creatinine today 0.97, stable when compared to yesterday; consider resolved -Stop trending creatinine. 3. Iron deficiency anemia -Hgb 8.8 in ED; 7.7 in clinic, hemoglobin on recheck (07/28) -Transfused patient with 2 units packed red blood cells (07/28), Hgb (07/29) 10.1 -Has been taking calcium supplements for years; interferes with iron absorption -ferritin level 33.1 -cont. iron supplementation -trend CBC 4. Leukocytosis -WBC 11.17 today, up from 9.52 yesterday -Possible etiologies include urinary tract (bacteriuria already confirmed, though patient has been asymptomatic to date), pulmonary, or GI. -CRP elevated at 0.75, ESR within normal limits at 13; this suggests a burgeoning acute infectious process, though no correlation clinically at this time. -Patient is afebrile; no other signs of acute infection. Will continue to monitor 5. Hyponatremia -likely due to hypovolemic hyponatremia, appears clinically dry -(07/30) Na 122 -cont. LRs 90mls/hr -Has a baseline of 132-134 per old sodium measurements. -regular diet, trend CMP -salt TABS, p.o. repletion via diet 6. Asymptomatic UTI -UA showed pos leuk est. + nitrites -Rocephin x1 ED, discontinue antibiotics as she is asymptomatic. -WBC: 9.52 this morning, slightly elevated from 8.8 yesterday; will continue to monitor 7. H/o afib w/ RVR -asymptomatic -EKG: afib w/ RVR, nonspecific ST changes -trops negative -cont. flecainide -Held home metoprolol yesterday due to bradycardia; patient BP subsequently increased -Started on Lopressor 25 mg twice daily, with adjustments if necessary; consider adjusting home dose of Toprol (after consulting with Dr. Neal, her gang head saw operator) -INR stable at 1.4 today; continue to trend 8. HTN -restarted home losartan since less concern for GI bleed -Stopped metoprolol due to persistent bradycardia; started on 25 mg Lopressor twice daily (see #5 above) DVT ppx: SCDs FEN/GI: Regular diet, LRs 90mls/hr Code Status: Full Dispo: med/surg Total Time Total Time Spent Total Time Spent (In Minutes): <30 Discharge Plan Discharge Items Patient Disposition: Home - Self-Care Reason For Visit: ELEVATED LFTs Discharge Diagnosis: Severely elevated liver proteins. Activity: Per Instructions section Non-emergency contact: Human Services Care Specialist Call non-emergency contact if: you have any medication questions and your symptoms worsen Follow-up/Referrals: Sarkis Barahona MD [Primary Care Provider] - 08/07/21 1:50 pm Shelley Causey MD [Physician] - (office will call with appointment) Diet: Regular Ambulatory Orders: Comprehensive Metabolic Panel (Routine) Timeframe: 1 Day Location: Determined by Patient Ordered By: Monique Bedolla Attending Provider Instructions: You were seen in the hospital for hepatic transaminitis, or severely elevated liver enzymes. An increase in these proteins typically indicates an acute infla mmation or chronic injury to the liver. While you were here, you were given IV fluids and supportive care while we tried to determine the cause of your severe liver inflammation. While you were here, your liver enzymes begin to trend downward. Although we are still working to determine the cause of your increased liver proteins, you are safe to be discharged home. Severely elevated liver enzymes: As part of the work-up to determine the cause of your illness, you have been scheduled for a liver biopsy this August 07. In order to make sure that your liver labs continue to trend in the right direction, we are sending you home with instructions to have blood drawn tomorrow, on Saturday, before your procedure on Saturday. To reduce your risk of bleeding during the procedure, you should stop taking your Eliquis approximately 48 hours before your procedure on Saturday. Otherwise, you run the risk that the procedure will be canceled. Nonspecific bone marrow disorder findings on MRI: As part of your initial work-up to determine what caused your presenting symptoms, we obtained an MRI of your pituitary that revealed some abnormal findings consistent with bone marrow disorder the findings were nonspecific, therefore we consulted with the hematology team for guidance. They agree that this is not urgent and can be managed safely on an outpatient basis. We have made an appointment for you to meet with the specialist, Dr. Causey, after you are discharged. Please reach out to her office if you are unable to make your scheduled appointment, or if you have not been contacted about your appointment. Medications: We made some adjustments to your medication regimen. Please pay close attention to any changes listed here: * We changed your Metoprolol succinate (Toprol) dose. Previously, you were taking 3 tablets once daily for a daily total of 150 mg (50 x 3 = 150 mg). You should stop taking this dose. Instead, take: * Metoprolol succinate (Toprol) 50 mg, 1 tablet once daily. * We have sent this new prescription to your pharmacy. * Should you continue using your old Metoprolol pills, please remember to only take 1 tablet once daily. * The rest of your medications have been unchanged. You can continue to take as prescribed. TO-DO LIST * Resume taking your Eliquis today. * Get blood work done tomorrow, on Saturday. We will provide you with a p rescription to take with you to get that done. * Stop taking your Eliquis before Saturday. * Show up to [facility] on August 07, at 8:30 AM, for your liver biopsy. * Show up to your hematology appointment with Dr. Causey, to address the finding on your pituitary MRI. It has been our pleasure to care for you here at [facility]. We wish you a safe and speedy recovery. Addtl Equity Director Provider Instructions: You have been scheduled to have a liver biopsy on Saturday, 08/07, at 9am. Please arrive to the hospital ([facility]) main entrance no later than 8:30am. Pending Studies at Discharge: No Stand-Alone Forms: My [facility], Smoking Cessation Medications and DC Order Prescriptions: New metoprolol succinate [Toprol XL] 50 mg tablet extended release 24 hr 50 mg PO DAILY Qty: 30 RF: 0 Continued losartan 100 mg tablet 50 mg PO DAILY RF: 0 Hold Instructions: Home Medication placed on hold at Doctor's office Eliquis 5 mg tablet 5 mg PO BID Qty: 180 RF: 3 flecainide 100 mg tablet 100 mg PO Q12H Qty: 60 RF: 5 acetaminophen [Tylenol Extra Strength] 500 mg Tablet 500 mg PO Q6H PRN (Reason: Pain) RF: 0 multivitamin Tablet 1 tab PO DAILY RF: 0 calcium carbonate-vitamin D3 [Calcium 600 + D(3)] 600 mg-10 mcg (400 unit) Tablet 1 tab PO DAILY RF: 0 amoxicillin 500 mg capsule 500 mg PO .COMPLEX PRN (Reason: 1 HOUR PRIOR TO DENTAL VISITS) RF: 0 Discontinued metoprolol succinate 50 mg tablet extended release 24 hr 150 mg PO DAILY Qty: 270 RF: 3 Discharge Orders: Discharge Order (Routine); Ordered 08/03/21 Ordered By: Monique Mathew Admission Data Admit Date/Time: 07/28/21 00:40 Attending Provider: Michael Meneses Admit Provider: Bernard Morales Primary Care Provider: Sarkis Barahona Other Providers: Nelsy Marinelli ; Adrian Ellsworth ; Moses Neal ; Renee Perry ; Ramon Villeda V. Other Interventions: Discharge Summary Assessment (RN) Last Done: 08/03/21 16:50 Supervising Physician Co-Signing Physician Notes I personally examined the patient and verified all freeman points of history and exam, discussed case, and agree with decision making with Dr Mathew Generally feeling okaystill no acute physical complaints. Updated to the best my ability Vitals noted, in general she is awake and alert pleasant no distress. HEENT normocephalic atraumatic mucous membranes moist. Breathing unlabored no accessory muscle use good effort. Skin shows no rashes no pallor or icterus. Neuro without focal deficits. Marked transaminitisetiology not entirely clear, in discussion with gastroenterology, liver biopsy could potentially be helpful. LFTs are trending down, which is reassuring, as is the fact that the patient is clinically doing okay. Unable to obtain liver biopsy inpatient given that she was on Eliquis, would need to be off it for 48 hours, but with LFTs trending down, and patient feeling okay, safe for discharge with outpatient follow-up and liver biopsy on Saturday. Possible myeloproliferative processactually incidentally noted first on MRI pituitary which was done for elevated TSH/free T4. Heme-onc input appreciated, outpatient work-up/etc Elevated TSH/high free [id number] true central hyperthyroidism versus possibly a inflammatory response/euthyroid sick type of an effect. Continue to follow clinically, not tachycardic or tremulous. 3 mm microadenoma possible, although does not seem to be overtly obviously clear. Treat acute situation, monitor, repeat TSH/free T4 in about a month, further work-up from there if this persists Acute CVA incidentally noted on MRI - secondary w/u and management as outpatient Resident Activity Tracking Resident Involvement: Resident Care Provided Care Provided: Adult Hospital Medicine
[2021-08-03] MEDS: APIXABAN 5 MG TABLET PO SCH (16:43)
--- NOTE | 2021-08-03 19:01 | Billing Data ---
Date of Service August 03, 2021 Coding Level of Care Code D/C DAY MANAGEMENT <30 MINS
[2021-08-08 14:36] LABS: Free Kappa 45.3 mg/L (3.3-19.4); Free Kappa/Lambda Ratio 1.67 (0.26-1.65); Free Lambda 27.1 mg/L (5.7-26.3); Kappa Lambda Ratio 1.63 (1.29-2.55)
--- NOTE | 2021-08-13 10:34 | Coding Query ---
CODING QUERY To promote full compliance with coding requirements relating to patient care, provider participation is requested in all cases of manager truck uncertainty. Please assist us with the question(s) below: Coding Question(s): Patient adm with elevated liver function tests. 4 weeks from food poisoning. Initial autoimmune tests [facility] were false negative with [facility] tests positive. Patient discharged for OP liver biopsy. CMV labs , pending at discharge are now available for review. Hematology consult possible lymphoproliferative disorder. Please document, if known or suspected, the (possible) etiology for the elevated liver function tests. Thanks for your help!! Aric Almendarez [facility] Physician's Response(s): still not entirely clear - ?sinusoidal congestion but etiology of this would not be entirely clear. would await ongoing GI and hemoatology w/u Principal Diagnosis: "that condition established after study, to be chiefly responsible for occasioning the admission of the patient to the hospital for care." Co-Existing Principal Diagnosis: "when two or more diagnoses equally meet the criteria for principal diagnosis as determined by the circumstances of admission, diagnostic work up, and/or therapy provided, and the Alphabetic Index, Tabular List, or another coding guideline does not provide sequencing direction, any one of the diagnoses may be sequenced first." "When the physician has documented what appears to be a current diagnosis in the body of the record, but has not included the diagnosis in the final diagnostic statement, the physician should be asked whether the diagnosis should be added." (Source Coding Clinic 2 QTR90. p3-4) ISABELLA
== END 2021-08-03 17:30 | disposition home or self-care (01) | DRG 947 ==
LOC: ED 11:58 → SUATTDRO 07-28 00:40 → 3E 07-28 00:40

== ENCOUNTER 2021-08-18 09:28 | Inpatient (IN) ==
--- NOTE | 2021-08-18 10:21 | Emergency Department Note ---
History of Present Illness General Chief complaint: Weakness Stated complaint: Weakness Time Seen by Provider: 08/18/21 09:53 Source: patient and family () History of Present Illness Provider complaint: Weakness Onset (ago): day(s) 3 Associated symptoms: + weakness; no chest pain, no fever/chills, no headaches, no nausea/vomiting or no shortness of breath 76-year-old female presents emergency department with for weakness. reports that the patient has been having weakness for the last 5 weeks but is gotten worse over the last 3 days. He statesthat the patient has been so weak that she has not been able to take any of her medications and that she has been unable to get up to use the bathroom. He reports no falls. Patient reports feeling cold and having chills. Home Medications Medication Instructions Recorded Confirmed Type apixaban 5 mg tablet (Eliquis) 5 mg PO BID #180 tab 06/30/21 08/18/21 Rx losartan 100 mg tablet 50 mg PO DAILY tab 06/30/21 08/18/21 History flecainide 100 mg tablet 100 mg PO Q12H #60 tab 07/24/21 08/18/21 Rx amoxicillin 500 mg capsule 500 mg PO .COMPLEX PRN 07/27/21 08/18/21 History multivitamin 1 tab PO DAILY 07/27/21 08/18/21 History metoprolol succinate 50 mg 50 mg PO DAILY #30 tab 08/03/21 08/18/21 Rx tablet,extended release 24 hr (Toprol XL) diazepam 2 mg tablet (Valium) 2 mg PO TID PRN #11 tab 08/04/21 08/18/21 Rx Allergies Allergy/AdvReac Type Severity Reaction Status Date / Time bupivacaine Allergy Intermediate possibly Verified 08/18/21 11:55 caused seizures eggplant Allergy Mild MOUTH Verified 08/18/21 11:55 TINGLES Past Med/Surg History Medical History (Updated 08/18/21 @ 13:43 by Nikki Vaca MD) Acute hyponatremia Bicuspid aortic valve S/P BOVINE AVR 2013 Seizure 1 TIME SEIZURE UPON EMERGENCE FROM ANESTHESIA FOR AVR 2013, HAD TO BE RE- INTUBATED. NO ISSUES SINCE, WAS ON KEPPRA X 3 MONTHS BUT WAS WEANED OFF. PER PT MAY HAVE BEEN R/T BUPIVOCAINE ALLERGY, BUT HOSPITAL RECORD SAYS 'UNKNOWN ETIOLOGY, POSSIBLY 2/2 ETOH WITHDRAWAL.' Weakness Surgical History Anesthesia complication PT HAD AN AVR AT [facility]. PT STATES SHE WAS TOLD SHE HAD A SEIZURE WHEN BEING BROUGHT OUT OF ANESTHESIA POSSIBLE RELATED TO EXPEREL. PT DENIES ANY ISSUES SINCE. H/O colonoscopy History of cardiac catheterization Social History Smoking Status: Unknown if ever smoked Second Hand Exposure: Yes; Hx Substance Use: No Preferred Language: Welsh Communication Ability: Effective Wireless Development Manager Required: No Beliefs That Will Affect Care: None marital status: Current Living Situation: Spouse Feels Safe at Home: Yes Safety Concerns: Feels Safe At This Time Assistive Devices: Glasses and Walker Review of Systems A total of 10 systems reviewed and were otherwise negative Physical Exam Vital Signs Vital Signs - 24 hr 08/18/21 09:41 08/18/21 09:45 08/18/21 09:58 Temperature 36.7 C Temperature Source Oral Pulse Rate 46 L 49 L 49 L Pulse Rate [Apical] Pulse Rate from SpO2 Sensor 87 128 H Pulse Rhythm Regular Pulse Rhythm [Apical] Pulse Strength Normal Respiratory Rate 21 17 18 Respiratory Effort / Characteristics Non-Labored Spontaneous Respiratory Depth Normal Respiratory Pattern Regular Blood Pressure 106/70 106/70 Blood Pressure [Left Arm] Blood Pressure Mean 82 82 Blood Pressure Mean [Left Arm] Blood Pressure Position Sitting Blood Pressure Position [Left Arm] Pulse Oximetry 83 L 93 96 Oxygen Delivery Method Room Air Oxygen Flow Rate Sepsis Recent Fever Within 48 Hours No Sepsis New/Unexplained Change in Mental Status N/A Sepsis Action Taken by Nursing No Action Required 08/18/21 10:00 08/18/21 10:15 08/18/21 10:30 Temperature Temperature Source Pulse Rate 46 L 44 L 47 L Pulse Rate [Apical] Pulse Rate from SpO2 Sensor 86 94 H Pulse Rhythm Pulse Rhythm [Apical] Pulse Strength Respiratory Rate 18 19 17 Respiratory Effort / Characteristics Respiratory Depth Respiratory Pattern Blood Pressure Blood Pressure [Left Arm] Blood Pressure Mean Blood Pressure Mean [Left Arm] Blood Pressure Position Blood Pressure Position [Left Arm] Pulse Oximetry 85 L 91 Oxygen Delivery Method Oxygen Flow Rate Sepsis Recent Fever Within 48 Hours Sepsis New/Unexplained Change in Mental Status Sepsis Action Taken by Nursing 08/18/21 10:45 08/18/21 11:00 08/18/21 11:15 Temperature Temperature Source Pulse Rate 44 L 38 L 51 L Pulse Rate [Apical] Pulse Rate from SpO2 Sensor 151 H Pulse Rhythm Pulse Rhythm [Apical] Pulse Strength Respiratory Rate 19 23 17 Respiratory Effort / Characteristics Respiratory Depth Respiratory Pattern Blood Pressure 94/53 L 98/62 L Blood Pressure [Left Arm] Blood Pressure Mean 66 74 Blood Pressure Mean [Left Arm] Blood Pressure Position Blood Pressure Position [Left Arm] Pulse Oximetry 93 Oxygen Delivery Method Room Air Oxygen Flow Rate Sepsis Recent Fever Within 48 Hours Sepsis New/Unexplained Change in Mental Status Sepsis Action Taken by Nursing 08/18/21 11:30 08/18/21 11:45 08/18/21 12:51 Temperature Temperature Source Pulse Rate 45 L 44 L Pulse Rate [Apical] 50 L Pulse Rate from SpO2 Sensor Pulse Rhythm Pulse Rhythm [Apical] Regular Pulse Strength Respiratory Rate 17 11 L 20 Respiratory Effort / Characteristics Non-Labored Spontaneous Respiratory Depth Normal Respiratory Pattern Blood Pressure Blood Pressure [Left Arm] 88/60 L Blood Pressure Mean Blood Pressure Mean [Left Arm] 69 Blood Pressure Position Blood Pressure Position [Left Arm] Lying Pulse Oximetry 89 L 96 Oxygen Delivery Method Nasal Cannula Oxygen Flow Rate 4 Sepsis Recent Fever Within 48 Hours Sepsis New/Unexplained Change in Mental Status Sepsis Action Taken by Nursing Physical Exam HENT: Exam performed. -Head: Normocephalic and atraumatic. -Right Ear: External ear normal. No mastoid tenderness. -Left Ear: External ear normal. No mastoid tenderness. -Mouth/Throat: The oropharynx is clear and moist. No trismus in the jaw. No dental abscesses or uvula swelling. No oropharyngeal exudate or tonsillar abscesses. EYES: Conjunctivae and EOM are normal. Pupils are equal, round, and reactive to light. Right eye exhibits no discharge. Left eye exhibits no discharge. No scleral icterus. NECK: Normal range of motion. Neck supple. No JVD present. No spinous process tenderness present. No carotid bruit present. No rigidity. No tracheal deviation and normal range of motion present. CV: Bradycardic rate, irregular rhythm, normal heart sounds and intact distal pulses. There is no peripheral edema. Palpable radial pulses bue. PULM/CHEST: Rales bilaterally. -Chest Wall: She exhibits no tenderness. ABD: The abdomen is soft. Bowel sounds are normal. She has no distension. No mass is present. There is no tenderness. There is no rebound, no guarding, no White's sign and no tenderness at McBurney's point. Rovsig negative. No fluid wave. MUSC/SKEL: Pelvis stable. LYMPH: No cervical adenopathy. NEURO: She is alert and oriented to person, place, and time. GCS eye subscore is 4. GCS verbal subscore is 5. GCS motor subscore is 6. Cerebellar tests wnl. SKIN: Petechiae of the bilateral lower extremities. Procedures Phlebotomy Reason for Blood Draw by MD: RN/lab unable Obtained Bloods via: femoral vein stick Estimated blood obtained (mL): 20 Course Course 0953: The patient was evaluated in room B12. A complete history and physical exam was performed Cardiac monitoring: An order was placed for continuous cardiac monitoring. The monitor shows a rate of 50 with atrial fibrilation rhythm EMR reviewed. Patient has a history of elevated LFTs and hyponatremia. She also has a history of congestive heart failure and aortic stenosis. Patient was recently admitted to the hospital in early July for hyponatremia, UTI, and transaminitis. Patient was supposed to be scheduled to have liver biopsy. 1010: When patient tried to straighten out her left leg the patient appeared to go into V. tach on the monitor however the patient always had a pulse and was alert and oriented. This lasted only for a few beats. Cardiology Dr. Ortiz came down and reviewed the EKGs that were done thinks that the patient is in atrial fibrillation. He recommends holding the patient's flecainide, metoprolol, and if she is on digoxin to hold that also. 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 No future suggestive autoimmune hepatitis. These findings could be due to venoocclusive disease, Budd-Chiari syndrome, or heart related issues. Could also be due to nodular regenerative hyperplasia, systemic inflammatory disease, granulomatous disorders or neoplastic conditions. Her CA-125 is also elevated. 1045: Patient went into V. tach again on the monitor. Discussed with cardiology Dr. Ortiz who recommends against amiodarone given the patient's history of elevated liver enzymes. He states that the patient could be given lidocaine bolus to help with her V. tach. Patient was extremely difficult venous access. Multiple attempts by lab techs and nursing to obtain blood was unsuccessful. Femoral stick was conducted by me see procedure note. [id number] labs were obtained and the patient had a potassium of 6.2. Given the hyperkalemia, this could explain the patient's arrhythmia. Lidocaine will be held at this time. Patient be given calcium gluconate 1 g as well as 10 units of insulin and 1 amp of D50. 1116: While getting the calcium gluconate the patient went into V. tach again. We are preparing to give the lidocaine and given the repeated episodes of V. tach and then the patient started becoming bradycardic with a rate in the 20s and having pauses. Patient's blood pressure was mildly low, with systolics in the 90s manually. Patient remained alert and oriented. Atropine 0.5 mg ordered for the patient given the hypotension and the bradycardia. I discussed the case again with Dr. Ortiz and we did discuss the possibility of calling a heart alert for possible transvenous pacemaker placement. He agreed with this idea. Heart alert was called out. Spoke with Dr. García on-call for heart alert and he stated he would be in to see the patient. 1130: [facility] She evaluate the patient at bedside. Patient did states she might have been bitten by take to Dr. Marinelli. Doxycycline 100 mg IV ordered for the patient. Mild leukocytosis of 15. Patient's creatinine mildly elevated. Patient given 250 cc bolus given her history of aortic stenosis and congestive heart failure. 1145: X-ray showed a possible pelvis fracture on the left. Patient's is now stating that the patient fell 10 days ago. Patient is on Eliquis. Will take the patient to CT. Dr. García on-call for heart alert at bedside. 1210: CTs viewed by me did not show any ICH or pelvis fracture. Patient taken up to Crime Investigator Special Agent with Dr. García on-call for heart alert Administered Medications Sodium Chloride (Nss 1000ml) 1,000 mls @ 100 mls/hr IV .Q10H EMILY Stop: 08/19/21 09:29 Last Admin: 08/18/21 14:55 Dose: 100 mls/hr Documented by: [id number] Norepinephrine Bitartrate (Levophed/D5w) 8 mg in 508 mls @ 12.459 mls/hr IV .Q24H EMILY; Protocol Stop: 09/17/21 14:14 Last Admin: 08/18/21 14:56 Dose: 0.05 mcg/kg/min, 12.5 mls/hr Documented by: [id number] Cosigned by: [id number] Discontinued Medications Atropine Sulfate (Atropine Sulfate 0.1 Mg/Ml 5ml Syr) Confirm Administered Dose 0.5 mg IV .STK-MED ONE Stop: 08/18/21 11:07 Last Admin: 08/18/21 11:07 Dose: 0.5 mg Documented by: [id number] Atropine Sulfate (Atropine Sulfate 0.1 Mg/Ml 10ml Syr) Confirm Administered Dose 1 mg IV .STK-MED ONE Stop: 08/18/21 11:26 Last Admin: 08/18/21 11:28 Dose: 0.5 mg Documented by: [id number] Atropine Sulfate (Atropine Sulfate 0.1 Mg/Ml 10ml Syr) Confirm Administered Dose 1 mg IV .STK-MED ONE Stop: 08/18/21 11:49 Last Admin: 08/18/21 13:26 Dose: Not Given Documented by: [id number] Calcium Gluconate (Calcium Gluconate 1000 Mg/60 Ml Nss) Confirm Administered Dose 1,000 mg IV .STK-MED ONE Stop: 08/18/21 10:50 Last Admin: 08/18/21 10:54 Dose: Not Given Documented by: [id number] Dextrose (Dextrose 50% 50 Ml Syringe) 50 ml IV NOW STA Stop: 08/18/21 10:46 Last Admin: 08/18/21 10:54 Dose: 50 ml Documented by: [id number] Epinephrine HCl (Epinephrine 1.5" Ndl 0.1 Mg/Ml Syr) Confirm Administered Dose 1 mg IV .STK-MED ONE Stop: 08/18/21 11:49 Last Admin: 08/18/21 13:26 Dose: Not Given Documented by: [id number] Fentanyl Citrate (Fentanyl Citrate 100 Mcg/2 Ml Vial) Confirm Administered Dose 100 mcg .ROUTE .STK-MED ONE Stop: 08/18/21 11:16 Last Admin: 08/18/21 13:25 Dose: Not Given Documented by: [id number] Heparin Sodium (Porcine) (Heparin (Porcine) 1000 Unit/Ml 10 Ml (Crime Investigator Special Agent Use Only)) Confirm Administered Dose 10,000 units .ROUTE .STK-MED ONE Stop: 08/18/21 11:16 Last Admin: 08/18/21 13:26 Dose: Not Given Documented by: [id number] Heparin Sodium/Sodium Chloride (Heparin In Nss Infusion 1000 Unit/500 Ml (2 U/Ml) Bag) Confirm Administered Dose 3,000 units IV .STK-MED ONE Stop: 08/18/21 11:16 Last Admin: 08/18/21 13:26 Dose: Not Given Documented by: [id number] Calcium Gluconate 1,000 mg/ (Sodium Chloride) 60 mls @ 240 mls/hr IV NOW STA Stop: 08/18/21 10:59 Last Infusion: 08/18/21 13:27 Dose: 0 mls/hr Documented by: [id number] Admin: 08/18/21 10:54 Dose: 240 mls/hr Documented by: [id number] Insulin Human Regular 10 units (/ Syringe) 9.9 mls @ 3 mls/sec IV ONE STA Stop: 08/18/21 10:46 Last Admin: 08/18/21 10:54 Dose: 3 mls/sec Documented by: [id number] Cosigned by: [id number] Insulin Human Regular (Novolin-R Insulin Per Unit Charge) Confirm Administered Dose 1 units .ROUTE .STK-MED ONE Stop: 08/18/21 10:49 Last Admin: 08/18/21 10:54 Dose: Not Given Documented by: [id number] Midazolam HCl (Midazolam Hcl 1 Mg/Ml 2ml Vial) Confirm Administered Dose 2 mg .ROUTE .STK-MED ONE Stop: 08/18/21 11:16 Last Admin: 08/18/21 13:26 Dose: Not Given Documented by: [id number] Nicardipine HCl (Nicardipine Hcl Inj 2.5 Mg/Ml 10 Ml Amp) Confirm Administered Dose 25 mg .ROUTE .STK-MED ONE Stop: 08/18/21 11:16 Last Admin: 08/18/21 13:26 Dose: Not Given Documented by: [id number] Nitroglycerin/Dextrose (Nitroglycerin/D5w 100mcg/Ml 20ml Syr) Confirm Administered Dose 2,000 mcg .ROUTE .STK-MED ONE Stop: 08/18/21 11:17 Last Admin: 08/18/21 13:26 Dose: Not Given Documented by: [id number] Norepinephrine Bitartrate (Norepinephrine/D5w 8 Mg/508 Ml) Confirm Administered Dose 8 mg IV .STK-MED ONE Stop: 08/18/21 13:54 Last Admin: 08/18/21 14:56 Dose: Not Given Documented by: [id number] Critical Care Time Critical Care Time: Yes Total Critical Care Time: 120 I have personally spent greater than 120 minutes of critical care time in the direct management of this patient. This includes bedside care, interpretation of diagnostic studies, and testing, discussion with consultants, patient, and family members, and other required patient management activities. This 120 minutes is in excess of all separately billable procedures. Medical Decision Making Laboratory Data Result diagrams: 08/18/21 10:42 08/18/21 13:46 Lab Results 08/18/21 08/18/21 08/18/21 Range/Units 10:42 10:44 10:49 WBC 15.93 H (4.8-10.8) K/uL RBC 5.02 (4.2-5.4) M/uL Hgb 12.8 (12.0-16.0) g/dL POC Hgb 16.0 (12.0-16.0) g/dl Hct 41.9 (37-47) % POC Hct 47 (37-47) % MCV 83.5 (80-100) fL MCH 25.5 (25-34) pg MCHC 30.5 L (32-36) g/dL RDW Std Deviation 68.5 H (36.4-46.3) fL RDW Coeff of Tanya 23.0 H (11.5-14.5) % Plt Count 88 L (130-400) K/uL Immature Gran % (Auto) 0.3 % Neut % (Auto) 87.1 % Lymph % (Auto) 6.0 % Metcalfe % (Auto) 6.5 % Eos % (Auto) 0.0 % Baso % (Auto) 0.1 % Neut # (Auto) 13.88 H (1.4-6.5) K/uL Lymph # (Auto) 0.95 L (1.2-3.4) K/uL Metcalfe # (Auto) 1.04 H (0.11-0.59) K/uL Eos # (Auto) 0.00 (0-0.5) K/uL Baso # (Auto) 0.01 (0-0.2) K/uL Immature Gran # (Auto) 0.05 H (0.00-0.02) K/uL Absolute Nucleated RBC 1.68 H (0-0) K/uL Nucleated RBC % (auto) 10.5 % Blood Smear Review Cancelled Platelet Estimate Decreased L (Normal) Polychromasia 1+ Hypochromasia Present Microcytosis Present Pappenheimer Bodies 1+ Target Cells 1+ [place] Bodies 1+ Echinocytes 1+ Acanthocytes (Spur) 1+ Schistocytes 1+ PT (9.0-12.0) Seconds INR (0.9-1.1) APTT (21.0-31.0) Seconds PTT Ratio POC Sodium 128 L (135-144) mmol/L Sodium 127 L (136-145) mmol/L POC Potassium 6.2 H* (3.3-5.0) mmol/L Potassium 6.3 H* (3.5-5.1) mmol/L POC Chloride 99 L (101-112) mmol/L Chloride 97 L (98-107) mmol/L Carbon Dioxide 17 L (21-32) mmol/L POC Total CO2 19 L (24-31) mmol/L Anion Gap 13.0 H (3-11) POC Anion Gap 18.0 (16-25) mmol/L POC BUN 82 H (7-18) mg/dl BUN 77 H (7-18) mg/dl Creatinine 2.79 H (0.6-1.2) mg/dl POC Creatinine 2.9 H (0.6-1.3) mg/dl Est Cr Clr Drug Dosing 15.7 ml/min Est GFR ( Amer) 18.6 ml/min Est GFR (Non-Af Amer) 16.0 ml/min BUN/Creatinine Ratio 27.6 H (10-20) Glucose 88 (70-99) mg/dl POC Glucose (70-99) mg/dl POC Glucose (other) 91 (70-99) mg/dl Lactate (0.4-2.0) mmol/L Calcium 8.7 (8.5-10.1) mg/dl POC Ioniz Calcium Olu 1.02 L (1.12-1.32) mmol/l Magnesium 2.1 (1.8-2.4) mg/dl Total Bilirubin 1.1 H (0.2-1) mg/dl Direct Bilirubin (0-0.2) mg/dl AST 384 H (15-37) U/L ALT 373 H (12-78) Alkaline Phosphatase 337 H D (45-117) U/L Ammonia (11-32) umol/L Troponin I 0.216 H* (0-0.045) ng/ml Total Protein 5.9 L (6.4-8.2) gm/dl Albumin 2.1 L (3.4-5.0) gm/dl Lipase 88 (73-393) U/L Procalcitonin (0-0.5) ng/ml TSH 8.780 H (0.300-4.500) uIu/ml Free T4 1.56 (0.8-1.6) ng/dl Digoxin (0.8-2.0) ng/ml Anaplasma Smear See Comment Babesia Smear See Comment Lyme Disease IgG Ab (Negative) Lyme Disease IgM Ab (Negative) SARS-CoV-2, RNA, NAAT (NEGATIVE) 08/18/21 08/18/21 08/18/21 Range/Units 10:54 10:54 10:54 WBC (4.8-10.8) K/uL RBC (4.2-5.4) M/uL Hgb (12.0-16.0) g/dL POC Hgb (12.0-16.0) g/dl Hct (37-47) % POC Hct (37-47) % MCV (80-100) fL MCH (25-34) pg MCHC (32-36) g/dL RDW Std Deviation (36.4-46.3) fL RDW Coeff of Tanya (11.5-14.5) % Plt Count (130-400) K/uL Immature Gran % (Auto) % Neut % (Auto) % Lymph % (Auto) % Metcalfe % (Auto) % Eos % (Auto) % Baso % (Auto) % Neut # (Auto) (1.4-6.5) K/uL Lymph # (Auto) (1.2-3.4) K/uL Metcalfe # (Auto) (0.11-0.59) K/uL Eos # (Auto) (0-0.5) K/uL Baso # (Auto) (0-0.2) K/uL Immature Gran # (Auto) (0.00-0.02) K/uL Absolute Nucleated RBC (0-0) K/uL Nucleated RBC % (auto) % Blood Smear Review Platelet Estimate (Normal) Polychromasia Hypochromasia Microcytosis Pappenheimer Bodies Target Cells [place] Bodies Echinocytes Acanthocytes (Spur) Schistocytes PT 20.6 H (9.0-12.0) Seconds INR 2.2 H (0.9-1.1) APTT 43.3 H (21.0-31.0) Seconds PTT Ratio 1.6 POC Sodium (135-144) mmol/L Sodium (136-145) mmol/L POC Potassium (3.3-5.0) mmol/L Potassium (3.5-5.1) mmol/L POC Chloride (101-112) mmol/L Chloride (98-107) mmol/L Carbon Dioxide (21-32) mmol/L POC Total CO2 (24-31) mmol/L Anion Gap (3-11) POC Anion Gap (16-25) mmol/L POC BUN (7-18) mg/dl BUN (7-18) mg/dl Creatinine (0.6-1.2) mg/dl POC Creatinine (0.6-1.3) mg/dl Est Cr Clr Drug Dosing ml/min Est GFR ( Amer) ml/min Est GFR (Non-Af Amer) ml/min BUN/Creatinine Ratio (10-20) Glucose (70-99) mg/dl POC Glucose (70-99) mg/dl POC Glucose (other) (70-99) mg/dl Lactate 2.4 H* (0.4-2.0) mmol/L Calcium (8.5-10.1) mg/dl POC Ioniz Calcium Olu (1.12-1.32) mmol/l Magnesium (1.8-2.4) mg/dl Total Bilirubin (0.2-1) mg/dl Direct Bilirubin (0-0.2) mg/dl AST (15-37) U/L ALT (12-78) Alkaline Phosphatase (45-117) U/L Ammonia 20.0 (11-32) umol/L Troponin I (0-0.045) ng/ml Total Protein (6.4-8.2) gm/dl Albumin (3.4-5.0) gm/dl Lipase (73-393) U/L Procalcitonin (0-0.5) ng/ml TSH (0.300-4.500) uIu/ml Free T4 (0.8-1.6) ng/dl Digoxin (0.8-2.0) ng/ml Anaplasma Smear Babesia Smear Lyme Disease IgG Ab (Negative) Lyme Disease IgM Ab (Negative) SARS-CoV-2, RNA, NAAT (NEGATIVE) 08/18/21 08/18/21 08/18/21 Range/Units 10:54 10:54 11:02 WBC (4.8-10.8) K/uL RBC (4.2-5.4) M/uL Hgb (12.0-16.0) g/dL POC Hgb (12.0-16.0) g/dl Hct (37-47) % POC Hct (37-47) % MCV (80-100) fL MCH (25-34) pg MCHC (32-36) g/dL RDW Std Deviation (36.4-46.3) fL RDW Coeff of Tanya (11.5-14.5) % Plt Count (130-400) K/uL Immature Gran % (Auto) % Neut % (Auto) % Lymph % (Auto) % [place]calfe % (Auto) % Eos % (Auto) % Baso % (Auto) % Neut # (Auto) (1.4-6.5) K/uL Lymph # (Auto) (1.2-3.4) K/uL [place]calfe # (Auto) (0.11-0.59) K/uL Eos # (Auto) (0-0.5) K/uL Baso # (Auto) (0-0.2) K/uL Immature Gran # (Auto) (0.00-0.02) K/uL Absolute Nucleated RBC (0-0) K/uL Nucleated RBC % (auto) % Blood Smear Review Platelet Estimate (Normal) Polychromasia Hypochromasia Microcytosis Pappenheimer Bodies Target Cells [place] Bodies Echinocytes Acanthocytes (Spur) Schistocytes PT (9.0-12.0) Seconds INR (0.9-1.1) APTT (21.0-31.0) Seconds PTT Ratio POC Sodium (135-144) mmol/L Sodium (136-145) mmol/L POC Potassium (3.3-5.0) mmol/L Potassium (3.5-5.1) mmol/L POC Chloride (101-112) mmol/L Chloride (98-107) mmol/L Carbon Dioxide (21-32) mmol/L POC Total CO2 (24-31) mmol/L Anion Gap (3-11) POC Anion Gap (16-25) mmol/L POC BUN (7-18) mg/dl BUN (7-18) mg/dl Creatinine (0.6-1.2) mg/dl POC Creatinine (0.6-1.3) mg/dl Est Cr Clr Drug Dosing ml/min Est GFR ( Amer) ml/min Est GFR (Non-Af Amer) ml/min BUN/Creatinine Ratio (10-20) Glucose (70-99) mg/dl POC Glucose (70-99) mg/dl POC Glucose (other) (70-99) mg/dl Lactate (0.4-2.0) mmol/L Calcium (8.5-10.1) mg/dl POC Ioniz Calcium Olu (1.12-1.32) mmol/l Magnesium (1.8-2.4) mg/dl Total Bilirubin (0.2-1) mg/dl Direct Bilirubin (0-0.2) mg/dl AST (15-37) U/L ALT (12-78) Alkaline Phosphatase (45-117) U/L Ammonia (11-32) umol/L Troponin I (0-0.045) ng/ml Total Protein (6.4-8.2) gm/dl Albumin (3.4-5.0) gm/dl Lipase (73-393) U/L Procalcitonin 0.46 (0-0.5) ng/ml TSH (0.300-4.500) uIu/ml Free T4 (0.8-1.6) ng/dl Digoxin 0.1 L (0.8-2.0) ng/ml Anaplasma Smear Babesia Smear Lyme Disease IgG Ab Negative Cancelled (Negative) Lyme Disease IgM Ab Negative Cancelled (Negative) SARS-CoV-2, RNA, NAAT (NEGATIVE) 1208/18/21 08/18/21 Range/Units 11:11 11:24 13:09 WBC (4.8-10.8) K/uL RBC (4.2-5.4) M/uL Hgb (12.0-16.0) g/dL POC Hgb (12.0-16.0) g/dl Hct (37-47) % POC Hct (37-47) % MCV (80-100) fL MCH (25-34) pg MCHC (32-36) g/dL RDW Std Deviation (36.4-46.3) fL RDW Coeff of Tanya (11.5-14.5) % Plt Count (130-400) K/uL Immature Gran % (Auto) % Neut % (Auto) % Lymph % (Auto) % [place] % (Auto) % Eos % (Auto) % Baso % (Auto) % Neut # (Auto) (1.4-6.5) K/uL Lymph # (Auto) (1.2-3.4) K/uL [place] # (Auto) (0.11-0.59) K/uL Eos # (Auto) (0-0.5) K/uL Baso # (Auto) (0-0.2) K/uL Immature Gran # (Auto) (0.00-0.02) K/uL Absolute Nucleated RBC (0-0) K/uL Nucleated RBC % (auto) % Blood Smear Review Platelet Estimate (Normal) Polychromasia Hypochromasia Microcytosis Pappenheimer Bodies Target Cells [place] Bodies Echinocytes Acanthocytes (Spur) Schistocytes PT (9.0-12.0) Seconds INR (0.9-1.1) APTT (21.0-31.0) Seconds PTT Ratio POC Sodium (135-144) mmol/L Sodium (136-145) mmol/L POC Potassium (3.3-5.0) mmol/L Potassium (3.5-5.1) mmol/L POC Chloride (101-112) mmol/L Chloride (98-107) mmol/L Carbon Dioxide (21-32) mmol/L POC Total CO2 (24-31) mmol/L Anion Gap (3-11) POC Anion Gap (16-25) mmol/L POC BUN (7-18) mg/dl BUN (7-18) mg/dl Creatinine (0.6-1.2) mg/dl POC Creatinine (0.6-1.3) mg/dl Est Cr Clr Drug Dosing ml/min Est GFR ( Amer) ml/min Est GFR (Non-Af Amer) ml/min BUN/Creatinine Ratio (10-20) Glucose (70-99) mg/dl POC Glucose 158 H 131 H (70-99) mg/dl POC Glucose (other) (70-99) mg/dl Lactate (0.4-2.0) mmol/L Calcium (8.5-10.1) mg/dl POC Ioniz Calcium Olu (1.12-1.32) mmol/l Magnesium (1.8-2.4) mg/dl Total Bilirubin (0.2-1) mg/dl Direct Bilirubin (0-0.2) mg/dl AST (15-37) U/L ALT (12-78) Alkaline Phosphatase (45-117) U/L Ammonia (11-32) umol/L Troponin I (0-0.045) ng/ml Total Protein (6.4-8.2) gm/dl Albumin (3.4-5.0) gm/dl Lipase (73-393) U/L Procalcitonin (0-0.5) ng/ml TSH (0.300-4.500) uIu/ml Free T4 (0.8-1.6) ng/dl Digoxin (0.8-2.0) ng/ml Anaplasma Smear Babesia Smear Lyme Disease IgG Ab (Negative) Lyme Disease IgM Ab (Negative) SARS-CoV-2, RNA, NAAT NEGATIVE (NEGATIVE) Imaging Data Radiologist's Impression: Chest X-Ray 08/18/21 09:56 XR chest 1V portable CLINICAL HISTORY: arrythmia COMPARISON STUDY: Chest CT August 01, 2021. Chest radiograph August 04, 2021. FINDINGS: Median sternotomy wires are noted. There is a prosthetic aortic valve. Cardiomegaly is unchanged. Small to moderate right and small left pleural effusions are present. Left basilar opacity has slightly increased. Pulmonary ed froilan has improved since chest radiograph of August 04, 2020. IMPRESSION: 1. Pulmonary vascular congestion. 2. Small to moderate right and small left pleural effusions. Increase in left basilar opacity which could reflect atelectasis or consolidation. ACT 112: Negative or not required by law. Electronically signed by: Mal Suazo M.D. 08/18/2021 11:[address] 08/18/21 10:11 CT head/brain wo con CLINICAL HISTORY: ams Technique: Contiguous axial CT images of the head were acquired from the base of the skull to the vertex without intravenous contrast administration. Images were viewed in brain, subdural and bone windows. Automated dose lowering techniques and/or adjustment according to patient size were utilized for this exam. Comparison: None available at the time of this dictation. Findings: Areas of decreased attenuation are present in the periventricular and subcortical white matter bilaterally consistent with small vessel ischemic disease. Generalized cerebral atrophy with commensurate enlargement of the ventricles, sulci, and cisterns is also present. There is no acute intracranial hemorrhage or evidence of acute territorial infarction. No shift of the midline structures, mass effect, or extra-axial abnormalities are shown. Atherosclerotic calcifications are present in the intracranial segments of the internal carotid arteries. Imaged portions of the paranasal sinuses and mastoid air cells are clear. The orbits appear normal. There are no acute fractures of the calvaria or scalp swelling. Impression: No acute intracranial hemorrhage, no evidence of acute territorial infarction or other acute intracranial disease process. ACT 112: Negative or not required by law. Electronically signed by: Geal Edgar M.D. 08/18/2021 12:01 PM Pelvis X-Ray 08/18/21 10:12 XR pelvis 1-2V routine HISTORY: 76 years-old Female ro fx acute pelvic pain status post trauma COMPARISON: CT abdomen and pelvis 08/01/2021 TECHNIQUE: AP view of the pelvis FINDINGS: Limited exam secondary to positioning, notably within the left leg in a frog-leg position. Moderate degeneration of the pubic symphysis. Minimal osteoarthritis of the hips with degenerative changes of the imaged lumbar spine. No definite acute fracture, dislocation or avascular necrosis. Surgical clips project over the right ischium. Soft tissue prominence lateral to the right hip. IMPRESSION: Limited exam secondary to positioning of the left hip. If there is c linical concern for an acute left hip fracture, repeat dedicated left hip films are recommended. ACT 112: Negative or not required by law. The above report was generated using voice recognition software. It may contain grammatical, syntax or spelling errors. Electronically signed by: Tanner Lima M.D. 08/18/2021 11:41 AM Abdomen/Pelvis CT 08/18/21 11:44 CT abd pelvis wo con CLINICAL HISTORY: fall 10 days ago possible L hip fx TECHNIQUE: Helical axial images of the abdomen and pelvis were obtained. Automated dose lowering techniques and/or adjustment according to patient size were utilized for this exam. This exam was performed without intravenous contrast. COMPARISON: Comparison is made to CT abdomen pelvis 08/01/2021 FINDINGS: Lower chest: Bilateral pleural effusions are seen. There is cardiomegaly. Liver: Unremarkable. No focal lesions are seen. Gallbladder and biliary tree: No calcified gallstones. Normal caliber wall. No intra- or extrahepatic biliary ductal dilation. Pancreas: Unremarkable, no focal lesions. Spleen: Status post sternotomy. Adrenals: Unremarkable. Kidneys and ureters: Unremarkable. Bladder: Harvey catheter is seen. Reproductive organs: Unremarkable. Bowel: Unremarkable. Lymph nodes Retroperitoneal: Unremarkable. Mesenteric: Unremarkable. Pelvic: Unremarkable. Peritoneum: Free fluid is seen in the pelvis. Vessels: Atherosclerotic calcifications are seen. Abdominal wall: Body wall edema is seen. Bones: No evidence of hip fracture is seen. Degenerative changes are seen in the spine. IMPRESSION: 1. No acute abnormalities. In particular no evidence of fracture. 2. Body wall edema and intraperitoneal free fluid is similar in appearance to prior exam. 3. Redemonstration of bilateral pleural effusions with associated atelectasis. Stable cardiomegaly. ACT 112: Negative or not required by law. Electronically signed by: Gael Edgar M.D. 08/18/2021 12:[address] 08/18/21 11:49 CT cervical spine wo con CLINICAL HISTORY: possible fall weakness TECHNIQUE: Multidetector row helical CT of the cervical spine was performed without administration of intravenous contrast. Coronal and sagittal reformations were obtained. Automated dose lowering techniques and/or adjustment according to patient size were utilized for this exam. Comparison: None available at the time of this dictation. FINDINGS: No acute fractures or subluxations are identified. The alignment is normal. The vertebral body heights and disk spaces are well maintained. The prevertebral soft tissues are unremarkable. Biapical scarring is seen in the lungs. IMPRESSION: No evidence of acute bony injury. ACT 112: Negative or not required by law. Electronically signed by: Gael Edgar M.D. 08/18/2021 12:02 PM ECG Data Additional Comments: EKG #1 at 0941: Wide-complex rhythm with of 46. QRS 162 QTC [address] elevation or ST depression. EKG #2 at 1008: Wide-complex rhythm with a rate of 46. QRS [address] el evation or ST depression EKG #3 at 1111: Wide-complex rhythm with rate of 45. QRS [address] elevation or ST depression MDM Narrative 0953: The patient was evaluated in room B12. A complete history and physical exam was performed Cardiac monitoring: An order was placed for continuous cardiac monitoring. The monitor shows a rate of 50 with atrial fibrilation rhythm EMR reviewed. Patient has a history of elevated LFTs and hyponatremia. She also has a history of congestive heart failure and aortic stenosis. Patient was recently admitted to the hospital in early July for hyponatremia, UTI, and transaminitis. Patient was supposed to be scheduled to have liver biopsy. 1010: When patient tried to straighten out her left leg the patient appeared to go into V. tach on the monitor however the patient always had a pulse and was alert and oriented. This lasted only for a few beats. Cardiology Dr. Ortiz came down and reviewed the EKGs that were done thinks that the patient is in atrial fibrillation. He recommends holding the patient's flecainide, metoprolol, and if she is on digoxin to hold that also. 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 No future suggestive autoimmune hepatitis. These findings could be due to venoocclusive disease, Budd-Chiari syndrome, or heart related issues. Could also be due to nodular regenerative hyperplasia, systemic inflammatory disease, granulomatous disorders or neoplastic conditions. Her CA-125 is also elevated. 1045: Patient went into V. tach again on the monitor. Discussed with cardiology Dr. Ortiz who recommends against amiodarone given the patient's history of elevated liver enzymes. He states that the patient could be given lidocaine bolus to help with her V. tach. Patient was extremely difficult venous access. Multiple attempts by lab techs and nursing to obtain blood was unsuccessful. Femoral stick was conducted by me see procedure note. Xtqui-ku-[id number] labs were obtained and the patient had a potassium of 6.2. Given the hyperkalemia, this could explain the patient's arrhythmia. Lidocaine will be held at this time. Patient be given calcium gluconate 1 g as well as 10 units of insulin and 1 amp of D50. 1116: While getting the calcium gluconate the patient went into V. tach again. We are preparing to give the lidocaine and given the repeated episodes of V. tach and then the patient started becoming bradycardic with a rate in the 20s and having pauses. Patient's blood pressure was mildly low, with systolics in the 90s manually. Patient remained alert and oriented. Atropine 0.5 mg ordered for the patient given the hypotension and the bradycardia. I discussed the case again with Dr. Ortiz and we did discuss the possibility of calling a heart alert for possible transvenous pacemaker placement. He agreed with this idea. Heart alert was called out. Spoke with Dr. García on-call for heart alert and he stated he would be in to see the patient. 1130: [facility] She evaluate the patient at bedside. Patient did states she might have been bitten by take to Dr. Marinelli. Doxycycline 100 mg IV ordered for the patient. Mild leukocytosis of 15. Patient's creatinine mildly elevated. Patient given 250 cc bolus given her history of aortic stenosis and congestive heart failure. 1145: X-ray showed a possible pelvis fracture on the left. Patient's is now stating that the patient fell 10 days ago. Patient is on Eliquis. Will take the patient to CT. Dr. García on-call for heart alert at bedside. 1210: CTs viewed by me did not show any ICH or pelvis fracture. Patient taken up to [employer] Agent with Dr. García on-call for heart alert Impression & Plan Acute hyperkalemia, Ventricular tachycardia, Symptomatic bradycardia Discharge Plan Visit Data Chief Complaint: Weakness Stated Complaint: Weakness ED Provider: Jose Enrique Jean Discharge Problem: Acute hyperkalemia, Ventricular tachycardia, Symptomatic bradycardia Patient Disposition: Admitted As Inpatient Discharge Instructions Interventions: ED Discharge Assessment Last Done: 08/18/21 12:00
--- NOTE | 2021-08-18 10:32 | Electrocardiogram Report ---
Test Reason : Blood Pressure : / mmHG Vent. Rate : 046 BPM Atrial Rate : 053 BPM P-R Int : 000 ms QRS Dur : 162 ms QT Int : 704 ms P-R-T Axes : 000 -55 097 degrees QTc Int : 616 ms Probable Atrial fibrillation with slow ventricular response Left axis deviation Non-specific intra-ventricular conduction block Abnormal ECG When compared with ECG of 04-AUG-2021 06:59, Significant changes have occurred Confirmed by Moses Neal ([id number]) on 08/18/2021 10:31:49 AM Referred By: Confirmed By:Moses Neal
[2021-08-18] MEDS ORDERED: CALCIUM GLUCONATE 10% 1,000 MG in SODIUM CHLORIDE 0.9% 50 ML IV STA (10:45)
[2021-08-18] MEDS ORDERED: DEXTROSE 50% 50 ML SYRINGE IV STA (10:45)
[2021-08-18] MEDS ORDERED: INSULIN HUMAN REGULAR PER UNIT 10 UNITS in SYRINGE 9.9 ML IV STA (10:45)
[2021-08-18 10:48] LABS: Mean Corpuscular Hgb Conc 30.5 g/dL (32-36)
[2021-08-18] MEDS ORDERED: NovoLIN-R INSULIN PER UNIT CHARGE ONE (10:48)
[2021-08-18] MEDS ORDERED: CALCIUM GLUCONATE 1000 MG/60 ML NSS IV ONE (10:49)
[2021-08-18 10:58] LABS: iSTAT Creatinine 2.9 mg/dl (0.6-1.3); iSTAT Ionized Calcium 1.02 mmol/l (1.12-1.32); iSTAT Potassium 6.2 mmol/L (3.3-5.0)
[2021-08-18] MEDS ORDERED: ATROPINE SULFATE 0.1 MG/ML 5ML SYR IV ONE (11:06)
[2021-08-18 11:10] LABS: Hematocrit (blood only) 41.9 % (37-47); Hemoglobin 12.8 g/dL (12.0-16.0); Mean Corpuscular Hemoglobin 25.5 pg (25-34); Mean Corpuscular Volume 83.5 fL (80-100); Nucleated RBC # (auto) 1.68 K/uL (0-0); Nucleated RBC % (auto) 10.5 %; Platelet Count 88 K/uL (130-400); RDW Standard Deviation 68.5 fL (36.4-46.3); Red Blood Count 5.02 M/uL (4.2-5.4); White Blood Count 15.93 K/uL (4.8-10.8)
[2021-08-18 11:11] LABS: Acanthocytes 1+; Basophils # (auto) 0.01 K/uL (0-0.2); Basophils % (auto) 0.1 %; Echinocytes 1+; Howell-Jolly Bodies 1+; Hypochromasia Present; Immature Granulocytes # (auto) 0.05 K/uL (0.00-0.02); Immature Granulocytes % (auto) 0.3 %; Lymphocytes # (auto) 0.95 K/uL (1.2-3.4); Microcytosis Present; Monocytes # (auto) 1.04 K/uL (0.11-0.59); Monocytes % (auto) 6.5 %; Neutrophils # (auto) 13.88 K/uL (1.4-6.5); Neutrophils % (auto) 87.1 %; Platelet Estimate Decreased (Normal); Polychromasia 1+; Target Cells 1+
[2021-08-18] MEDS ORDERED: LIDOCAINE 2% 20 MG/ML 5 ML SYR IV ONE (11:15)
[2021-08-18] MEDS ORDERED: niCARdipine HCL INJ 2.5 MG/ML 10 ML AMP ONE (11:15)
[2021-08-18] MEDS ORDERED: fentaNYL citrate 100 MCG/2 ML VIAL ONE (11:15)
[2021-08-18] MEDS ORDERED: MIDAZOLAM HCL 1 MG/ML 2ML VIAL ONE (11:15)
[2021-08-18] MEDS ORDERED: HEPARIN (PORCINE) 1000 UNIT/ML 10 ML (CATH LAB USE ONLY) ONE (11:15)
[2021-08-18] MEDS ORDERED: NITROGLYCERIN/D5W 100MCG/ML 20ML SYR ONE (11:16)
[2021-08-18 11:21] LABS: INR 2.2 (0.9-1.1); Partial Thromboplastin Ratio 1.6; Partial Thromboplastin Time 43.3 Seconds (21.0-31.0); Prothrombin Time 20.6 Seconds (9.0-12.0)
[2021-08-18] MEDS ORDERED: ATROPINE SULFATE 0.1 MG/ML 10ML SYR IV ONE ×2 (11:25→11:48)
--- NOTE | 2021-08-18 11:27 | XRay Report ---
XR chest 1V portable CLINICAL HISTORY: arrythmia COMPARISON STUDY: Chest CT August 01, 2021. Chest radiograph August 04, 2021. FINDINGS: Median sternotomy wires are noted. There is a prosthetic aortic valve. Cardiomegaly is unch anged. Small to moderate right and small left pleural effusions are present. Left basilar opacity has slightly increased. Pulmonary edema has improved since chest radiograph of August 04, 2020. IMPRESSION: 1. Pulmonary vascular congestion. 2. Small to moderate right and small left pleural effusions. Increase in left basilar opacity which c ould reflect atelectasis or consolidation. ACT 112: Negative or not required by law. Electronically signed by: Mal Suazo M.D. 08/18/2021 11:26 AM
[2021-08-18] MEDS ORDERED: PATIROMER CALCIUM SORBITEX 8.4 GM PACK PO ONE (11:30)
[2021-08-18] MEDS ORDERED: DOXYCYCLINE HYCLATE 100 MG in DEXTROSE 5% 100 ML IV STA (11:30)
--- NOTE | 2021-08-18 11:43 | XRay Report ---
XR pelvis 1-2V routine HISTORY: 76 years-old Female ro fx acute pelvic pain status post trauma COMPARISON: CT abdomen and pelvis 08/01/2021 TECHNIQUE: AP view of the pelvis FINDINGS: Limited exam secondary to positioning, notably within the left leg in a frog-leg position. Moderate d egeneration of the pubic symphysis. Minimal osteoarthritis of the hips with degenerative changes of t he imaged lumbar spine. No definite acute fracture, dislocation or avascular necrosis. Surgical clips project over the right ischium. Soft tissue prominence lateral to the right hip. IMPRESSION: Limited exam secondary to positioning of the left hip. If there is clinical concern for a n acute left hip fracture, repeat dedicated left hip films are recommended. ACT 112: Negative or not required by law. The above report was generated using voice recognition software. It may contain grammatical, syntax o r spelling errors. Electronically signed by: Tanner Lima M.D. 08/18/2021 11:41 AM
--- NOTE | 2021-08-18 12:02 | CT Scan Report ---
CT head/brain wo con CLINICAL HISTORY: ams Technique: Contiguous axial CT images of the head were acquired from the base of the skull to the yajaira colette without intravenous contrast administration. Images were viewed in brain, subdural and [facility]. Automated dose lowering techniques and/or adjustment according to patient size were utilized for this exam. Comparison: None available at the time of this dictation. Findings: Areas of decreased attenuation are present in the periventricular and subcortical white matter bilate rally consistent with small vessel ischemic disease. Generalized cerebral atrophy with commensurate e nlargement of the ventricles, sulci, and cisterns is also present. There is no acute intracranial hem orrhage or evidence of acute territorial infarction. No shift of the midline structures, mass effect, or extra-axial abnormalities are shown. Atherosclerotic calcifications are present in the intracran ial segments of the internal carotid arteries. Imaged portions of the paranasal sinuses and mastoid air cells are clear. The orbits appear normal. There are no acute fractures of the calvaria or scalp swelling. Impression: No acute intracranial hemorrhage, no evidence of acute territorial infarction or other acute intracra nial disease process. ACT 112: Negative or not required by law. Electronically signed by: Gael Edgar M.D. 08/18/2021 12:01 PM
--- NOTE | 2021-08-18 12:04 | CT Scan Report ---
CT cervical spine wo con CLINICAL HISTORY: possible fall weakness TECHNIQUE: Multidetector row helical CT of the cervical spine was performed without administration of intravenous contrast. Coronal and sagittal reformations were obtained. Automated dose lowering techn iques and/or adjustment according to patient size were utilized for this exam. Comparison: None available at the time of this dictation. FINDINGS: No acute fractures or subluxations are identified. The alignment is normal. The vertebral body height s and disk spaces are well maintained. The prevertebral soft tissues are unremarkable. Biapical scarr ing is seen in the lungs. IMPRESSION: No evidence of acute bony injury. ACT 112: Negative or not required by law. Electronically signed by: Gael Edgar M.D. 08/18/2021 12:02 PM
[2021-08-18 12:09] LABS: Procalcitonin 0.46 ng/ml (0-0.5)
--- NOTE | 2021-08-18 12:14 | CT Scan Report ---
CT abd pelvis wo con CLINICAL HISTORY: fall 10 days ago possible L hip fx TECHNIQUE: Helical axial images of the abdomen and pelvis were obtained. Automated dose lowering tech niques and/or adjustment according to patient size were utilized for this exam. This exam was perfor med without intravenous contrast. COMPARISON: Comparison is made to CT abdomen pelvis 08/01/2021 FINDINGS: Lower chest: Bilateral pleural effusions are seen. There is cardiomegaly. Liver: Unremarkable. No focal lesions are seen. Gallbladder and biliary tree: No calcified gallstones. Normal caliber wall. No intra- or extrahepatic biliary ductal dilation. Pancreas: Unremarkable, no focal lesions. Spleen: Status post sternotomy. Adrenals: Unremarkable. Kidneys and ureters: Unremarkable. Bladder: Harvey catheter is seen. Reproductive organs: Unremarkable. Bowel: Unremarkable. Lymph nodes Retroperitoneal: Unremarkable. Mesenteric: Unremarkable. Pelvic: Unremarkable. Peritoneum: Free fluid is seen in the pelvis. Vessels: Atherosclerotic calcifications are seen. Abdominal wall: Body wall edema is seen. Bones: No evidence of hip fracture is seen. Degenerative changes are seen in the spine. IMPRESSION: 1. No acute abnormalities. In particular no evidence of fracture. 2. Body wall edema and intraperitoneal free fluid is similar in appearance to prior exam. 3. Redemonstration of bilateral pleural effusions with associated atelectasis. Stable cardiomegaly. ACT 112: Negative or not required by law. Electronically signed by: Gael Edgar M.D. 08/18/2021 12:13 PM
[2021-08-18 12:17] LABS: Lyme Ab IgG w/WB Rflx Negative (Negative); Lyme Ab IgM w/WB Rflx Negative (Negative)
[2021-08-18 12:25] LABS: Albumin Level 2.1 gm/dl (3.4-5.0); BUN Creatinine Ratio 27.6 (10-20); Bilirubin,Total 1.1 mg/dl (0.2-1); Calcium 8.7 mg/dl (8.5-10.1); Creatinine Clr Calc Pharmacy 15.7 ml/min; Est GFR (African American) 18.6 ml/min; Potassium 6.3 mmol/L (3.5-5.1); Thyroid Stimulating Hormone 8.78 uIu/ml (0.300-4.500); Total Protein 5.9 gm/dl (6.4-8.2); Troponin I 0.216 ng/ml (0-0.045)
[2021-08-18 12:30] LABS: Magnesium 2.1 mg/dl (1.8-2.4)
--- NOTE | 2021-08-18 12:32 | Pre Anesthesia Assessment ---
Date of Service August 18, 2021 Temp pacer placement Pre Sedation Assessment Vital Signs Temp Pulse Resp BP Pulse Ox 08/18/21 11:45 44 L 11 L 89 L 08/18/21 11:30 45 L 17 08/18/21 11:15 51 L 17 98/62 L 08/18/21 11:00 38 L 23 93 08/18/21 10:45 44 L 19 94/53 L 08/18/21 10:30 47 L 17 08/18/21 10:15 44 L 19 91 08/18/21 10:00 46 L 18 85 L 08/18/21 09:58 98.1 F 49 L 18 106/70 96 08/18/21 09:45 49 L 17 106/70 93 08/18/21 09:41 46 L 21 83 L Cardiovascular RRR, no murmur, no edema + bradycardic and + irregularly irregular no edema Pre-Sedation Airway Assessment Smoking Status: Never smoker Mallampati 2 ASA 4 Notes The planned sedation has been discussed with the patient. Informed Consent was obtained. I have identified the patient, determined the appropriateness of sedation and have assessed the patient immediately prior to the procedure. All medicine(s) and interventions are by my order.
--- NOTE | 2021-08-18 12:40 | Procedure Note ---
Procedure Note Date of Service August 18, 2021 Note 76 WF hx PAF on OAC s/p Bovine AVR 2013 (nl coros at that time, last echo 2019 nl LV function and nl prosthetic valve function) baseline EKG NSR w IVCD recently admitted w Hepatitis A and persistent transaminitis (Liver Bx neg) now presenting w weakness and likely dehydration (BUN82/Creat 2.9) w WBC 15.9 and K 6.2. EKG + LBBB, AF w slow VR / tachy/maribell/AIVR (likely related to metabolic abnormalities ) referred for temp wire placement for symptomatic bradycardia PMH HTN/Chronic Hyponatremia/Anemia w ? myelodysplasia Procedure. Written informed consent obtained from . Pt taken to slab off mill tender. After time out R IJ are prepped and draped . US guidance utilized to access RIJ. 6 F sheath placed and temp wire delivered under fluoroscopic guidance. Pt tolerated procedure well. EBL -0- Procedure time 12:09->12:19 Fluoro Time 0.5/mGy 11/DAP 1.63 Initial Threshold 0.5. Initial settings VVI @ 50 Output 10 Coding
[2021-08-18 12:42] LABS: T4 Free Thyroxine 1.56 ng/dl (0.8-1.6)
--- NOTE | 2021-08-18 13:08 | History & Physical Report ---
Date of Service August 18, 2021 Assessment & Plan (1) Symptomatic bradycardia: Plan: Carrie Kelly is a 76yo female with history of AF on Eliquis anticoagulation, Metoprolol and Flecainide, NICM and s/p bioprosthetic AVR presenting with progressive weakness. Patient bradycardic with pauses on telemetry, wide complex conduction abnormality. Labs significant for CARL, acute hyperkalemia and hyponatremia as below. Patient had placement of temporary venous pacer by interventional cardiology. Ddx of bradycardia to include medication effects, metabolic derangements, specifically hyperkalemia, less likely infectious/tick borne illness. -Admit to MICU -Temporary pacer VVI 50 w 10V output, maximum sensitivity -Cardiology consultation appreciated -Daily EKG x 2 -Hold Metoprolol and Flecainide (2) CARL (acute kidney injury): Plan: Elevation of BUN to 77, Cr to 2.79 from 23 and 1.14, respectively on 08/04/21. Associated with anion gap metabolic acidosis (Gap=13, HCO3=17) as well as hyper kalemia with K of 6.3. Suspect multifactorial - acute dehydration in setting of poor oral intake as well as Losartan use. Bradycardia possibly secondary to metabolic abnormalities vs worsening renal function secondary to bradycardia/poor perfusion. Patient administered Calcium gluconate and Insulin+D50 in the ER. Temporary pacer as above. -IVF with NSS at 100mL/hr x 2 liters - cautious fluid resuscitation as patient with history of NICM, had some degree of volume overload following previous hospitalization -Avoid nephrotoxic agents - Hold Losartan -Renal dosing where needed -Patiromer 8.4gm ordered in ER - not yet given. -BMP q 12 hours - next at 16:00 -Monitor UOP (3) Acute hyperkalemia: Plan: K=6.3 from normal baseline. In setting of CARL, Losartan use. Conduction abnormalities as above with bradycardia, wide complex QRS as well as pauses possibly secondary to hyperkalemia in part. Patient has received Insulin/D50 as well as calcium. Veltessa ordered -BMP q 12 hrs -Veltessa x 1 -IVF and management of CARL as above (4) Elevated troponin: Plan: Most likely secondary to supply/demand mismatch in setting of bradycardia. Patient denies chest pain or discomfort. -Telemetry monitoring/ICU status as above -Trend troponin q 8 hrs x 2 (5) CHF (congestive heart failure): Plan: Patient does not appear to be acutely decompensated at this time -Monitor fluid balance, daily weights, I/Os -Holding Metoprolol and Losartan in setting of bradycardia and borderline hypotension, CARL (6) Anemia: Plan: Increased Hgb from last measure most likely hemoconcentration -Continue to monitor (7) Thrombocytopenia: Plan: Platelets = 88. Uncertain etiology, possibly secondary to underlying liver disease. She does appear to have petechiae on her legs. Patient reports tick bites in the past - Lyme is NEGATIVE and Preliminary anaplasmosis and babesiosis test for inclusion bodies are NEGATIVE as well -Monitor platelet count -Empiric doxycyclilne 100mg BID (8) Hyponatremia: Plan: Most likely secondary to dehydration -NSS at 100mL/hr x 2 liters -Monitor BMP q 12 hours Plan: F/E/N - NSS at 200mL/hr x 2 liters, management of acute hyperkalemia as above, heart healthy diet as tolerated Ppx - holding Eliquis for now Code - Full per discussion with Dispo - Admit to MICU History of Present Illness Chief Complaint: weakness Primary Care Provider: Sarkis Barahona MD Carrie Kelly is a 76yo female with history of atrial fibrillation on Eliquis anticoagulation, Metoprolol and Flecainide. Patient was admitted to [facility] from 07/27 - 08/03 with abnormal liver studies. Autoimmune workup with 1:320 ART as an outpatient. Negative liver doppler ultrasound - no clot. She had an outpatient liver biopsy performed on 08/07/21 - Findings (per [facility] re cords) with no suggestion of AI hepatitis. Findings may be secondary to venocclusive disease, Budd-Chiari syndrome or heart related issues. Could also be due to nodular regenerative hyperplasia, systemic inflammatory disease, granulomatous disorders or neoplastic conditions. Patient had a telephone visit with Dr. Neal from Cardiology on 08/09/21 which mentioned increased bilateral LE edema. Thought to be secondary to aggressive IVF administered in the hospital. Edema has improved since. Patient presents today complaining of profound weakness. She has had generalized weakness ongoing for the last 5 weeks with acute worsening over the last 3 days. states that she has not been able to get out of bed or take her medications for the last 3 days. In the ER patient afebrile, bradycardic. She had several episodes of wide complex rhythm, bradycardic. Possibly secondary to medication effects, slow conduction atrial fibrillation as well as dehydration and hyperkalemia. She continued to have episodes of bradycardia with rates 30 - 50's with pauses as well. She was administered Atropine x 2 doses. Interventional cardiology was contacted re: placement of temporary pacing wire. She was taken to the soap slabber with placement of temporary transvenous pacer. Patient with no acute complaints. She is awake and alert, able to answer questions appropriately and follow commands. She does appear to have some cognitive slowing and intermittent periods of mild confusion. is at bedside as well. History corroborated with him. Patient mentions she has had tick bites in the past. Unable to say when last one was. Has taken very little food or water over the last several days. ER Course: Calcium gluconate 1gm, Insulin 10u IV + Dextrose 50mL, Atropine 0.5mg IV x 2 Allergies Allergy/AdvReac Type Severity Reaction Status Date / Time bupivacaine Allergy Intermediate possibly Verified 08/18/21 11:55 caused seizures eggplant Allergy Mild MOUTH Verified 08/18/21 11:55 TINGLES Home Medications Medication Instructions Recorded Confirmed Type apixaban 5 mg tablet (Eliquis) 5 mg PO BID #180 tab 06/30/21 08/18/21 Rx losartan 100 mg tablet 50 mg PO DAILY tab 06/30/21 08/18/21 History flecainide 100 mg tablet 100 mg PO Q12H #60 tab 07/24/21 08/18/21 Rx amoxicillin 500 mg capsule 500 mg PO .COMPLEX PRN 07/27/21 08/18/21 History multivitamin 1 tab PO DAILY 07/27/21 08/18/21 History metoprolol succinate 50 mg 50 mg PO DAILY #30 tab 08/03/21 08/18/21 Rx tablet,extended release 24 hr (Toprol XL) diazepam 2 mg tablet (Valium) 2 mg PO TID PRN #11 tab 08/04/21 08/18/21 Rx Past Med/Surg History Medical History (Updated 08/18/21 @ 13:02 by Nelsy Marinelli DO) Acute hyponatremia Bicuspid aortic valve S/P BOVINE AVR 2013 Seizure 1 TIME SEIZURE UPON EMERGENCE FROM ANESTHESIA FOR AVR 2013, HAD TO BE RE- INTUBATED. NO ISSUES SINCE, WAS ON KEPPRA X 3 MONTHS BUT WAS WEANED OFF. PER PT MAY HAVE BEEN R/T BUPIVOCAINE ALLERGY, BUT HOSPITAL RECORD SAYS 'UNKNOWN ETIOLOGY, POSSIBLY 2/2 ETOH WITHDRAWAL.' Weakness Surgical History Anesthesia complication PT HAD AN AVR AT [facility]. PT STATES SHE WAS TOLD SHE HAD A SEIZURE WHEN BEING BROUGHT OUT OF ANESTHESIA POSSIBLE RELATED TO EXPEREL. PT DENIES ANY ISSUES SINCE. H/O colonoscopy History of cardiac catheterization Social History Smoking Status: Never smoker Second Hand Exposure: Yes; Hx Alcohol Use: No Hx Substance Use: No Preferred Language: Emir[place] Communication Ability: Effective Plant Safety Leader Required: No Beliefs That Will Affect Care: None marital status: Current Living Situation: Spouse Feels Safe at Home: Yes Assistive Devices: Glasses and Walker Review of Systems Review of Systems: All systems reviewed & are unremarkable except as noted in HPI & below Physical Exam Physical Exam: General: patient resting comfortably, awake, oriented x 3, answers questions appropriately and follows commands. Some mild episodes of confusion and slow response Skin: warm, dry, intact, petechial rash on bilateral LE anterior shins, dusky colored toes bilaterally HEENT: NC/AT, PERRL, EOMI, anicteric sclera, conjunctiva without injection, external ear normal to inspection and nontender, nares patent, dry mucus membranes, dentition intact, no oropharyngeal lesions, neck supple, trachea midline, no LAD, no thyromegaly, no JVD Heart: +S1/S2, irregular, bradycardic, no m/r/g Lungs: equal air entry bilaterally, no rales/rhonchi/wheezes Abd: +BS, soft, NT/ND, no masses/organomegaly/ascites Ext: cool, weakly palpable pulses in bilateral LE, dusky toes Neuro: grossly nonfocal, patient AA&O x 3, speech intact, no facial droop, moving all extremities on command with equal strength 5/5 Results & Data Results & Data ([facility]) Vital Signs (Past 12 Hours) Vital Signs Temp Pulse Resp BP Pulse Ox 08/18/21 11:45 44 L 11 L 89 L 08/18/21 11:30 45 L 17 08/18/21 11:15 51 L 17 98/62 L 08/18/21 11:00 38 L 23 93 08/18/21 10:45 44 L 19 94/53 L 08/18/21 10:30 47 L 17 08/18/21 10:15 44 L 19 91 08/18/21 10:00 46 L 18 85 L 08/18/21 09:58 36.7 C 49 L 18 106/70 96 08/18/21 09:45 49 L 17 106/70 93 08/18/21 09:41 46 L 21 83 L Laboratory Results Laboratory Results WBC 15.93 K/uL (4.8-10.8) H 08/18/21 10:42 RBC 5.02 M/uL (4.2-5.4) 08/18/21 10:42 Hgb 12.8 g/dL (12.0-16.0) 08/18/21 10:42 POC Hgb 16.0 g/dl (12.0-16.0) 08/18/21 10:44 Hct 41.9 % (37-47) 08/18/21 10:42 POC Hct 47 % (37-47) 08/18/21 10:44 MCV 83.5 fL (80-100) 08/18/21 10:42 MCH 25.5 pg (25-34) 08/18/21 10:42 MCHC 30.5 g/dL (32-36) L 08/18/21 10:42 RDW Std Deviation 68.5 fL (36.4-46.3) H 08/18/21 10:42 RDW Coeff of Tanya 23.0 % (11.5-14.5) H 08/18/21 10:42 Plt Count 88 K/uL (130-400) L 08/18/21 10:42 Immature Gran % (Auto) 0.3 % 08/18/21 10:42 Neut % (Auto) 87.1 % 08/18/21 10:42 Lymph % (Auto) 6.0 % 08/18/21 10:42 Beaver % (Auto) 6.5 % 08/18/21 10:42 Eos % (Auto) 0.0 % 08/18/21 10:42 Baso % (Auto) 0.1 % 08/18/21 10:42 Neut # (Auto) 13.88 K/uL (1.4-6.5) H 08/18/21 10:42 Lymph # (Auto) 0.95 K/uL (1.2-3.4) L 08/18/21 10:42 Beaver # (Auto) 1.04 K/uL (0.11-0.59) H 08/18/21 10:42 Eos # (Auto) 0.00 K/uL (0-0.5) 08/18/21 10:42 Baso # (Auto) 0.01 K/uL (0-0.2) 08/18/21 10:42 Immature Gran # (Auto) 0.05 K/uL (0.00-0.02) H 08/18/21 10:42 Absolute Nucleated RBC 1.68 K/uL (0-0) H 08/18/21 10:42 Nucleated RBC % (auto) 10.5 % 08/18/21 10:42 Platelet Estimate Decreased (Normal) L 08/18/21 10:42 Polychromasia 1+ 08/18/21 10:42 Hypochromasia Present 08/18/21 10:42 Microcytosis Present 08/18/21 10:42 Target Cells 1+ 08/18/21 10:42 [place] Bodies 1+ 08/18/21 10:42 Echinocytes 1+ 08/18/21 10:42 Acanthocytes (Spur) 1+ 08/18/21 10:42 PT 20.6 Seconds (9.0-12.0) H 08/18/21 10:54 INR 2.2 (0.9-1.1) H 08/18/21 10:54 APTT 43.3 Seconds (21.0-31.0) H 08/18/21 10:54 PTT Ratio 1.6 08/18/21 10:54 POC Sodium 128 mmol/L (135-144) L 08/18/21 10:44 Sodium 127 mmol/L (136-145) L 08/18/21 10:49 POC Potassium 6.2 mmol/L (3.3-5.0) H* 08/18/21 10:44 Potassium 6.3 mmol/L (3.5-5.1) H* 08/18/21 10:49 POC Chloride 99 mmol/L (101-112) L 08/18/21 10:44 Chloride 97 mmol/L (98-107) L 08/18/21 10:49 Carbon Dioxide 17 mmol/L (21-32) L 08/18/21 10:49 POC Total CO2 19 mmol/L (24-31) L 08/18/21 10:44 Anion Gap 13.0 (3-11) H 08/18/21 10:49 POC Anion Gap 18.0 mmol/L (16-25) 08/18/21 10:44 POC BUN 82 mg/dl (7-18) H 08/18/21 10:44 BUN 77 mg/dl (7-18) H 08/18/21 10:49 Creatinine 2.79 mg/dl (0.6-1.2) H 08/18/21 10:49 POC Creatinine 2.9 mg/dl (0.6-1.3) H 08/18/21 10:44 Est Cr Clr Drug Dosing 15.7 ml/min 08/18/21 10:49 Est GFR ( Amer) 18.6 ml/min 08/18/21 10:49 Est GFR (Non-Af Amer) 16.0 ml/min 08/18/21 10:49 BUN/Creatinine Ratio 27.6 (10-20) H 08/18/21 10:49 Glucose 88 mg/dl (70-99) 08/18/21 10:49 POC Glucose 158 mg/dl (70-99) H 08/18/21 11:24 POC Glucose (other) 91 mg/dl (70-99) 08/18/21 10:44 Lactate 2.4 mmol/L (0.4-2.0) H* 08/18/21 10:54 Calcium 8.7 mg/dl (8.5-10.1) 08/18/21 10:49 POC Ioniz Calcium Olu 1.02 mmol/l (1.12-1.32) L 08/18/21 10:44 Magnesium 2.1 mg/dl (1.8-2.4) 08/18/21 10:49 Total Bilirubin 1.1 mg/dl (0.2-1) H 08/18/21 10:49 Direct Bilirubin mg/dl (0-0.2) 08/18/21 10:49 AST 384 U/L (15-37) H 08/18/21 10:49 ALT 373 (12-78) H 08/18/21 10:49 Alkaline Phosphatase 337 U/L (45-117) H D 08/18/21 10:49 Ammonia 20.0 umol/L (11-32) 08/18/21 10:54 Troponin I 0.216 ng/ml (0-0.045) H* 08/18/21 10:49 Total Protein 5.9 gm/dl (6.4-8.2) L 08/18/21 10:49 Albumin 2.1 gm/dl (3.4-5.0) L 08/18/21 10:49 Lipase 88 U/L (73-393) 08/18/21 10:49 Procalcitonin 0.46 ng/ml (0-0.5) 08/18/21 10:54 TSH 8.780 uIu/ml (0.300-4.500) H 08/18/21 10:49 Free T4 1.56 ng/dl (0.8-1.6) 08/18/21 10:49 Digoxin 0.1 ng/ml (0.8-2.0) L 08/18/21 10:54 Anaplasma Smear See Comment 08/18/21 10:42 Babesia Smear See Comment 08/18/21 10:42 Lyme Disease IgG Ab Cancelled 08/18/21 11:02 Lyme Disease IgM Ab Cancelled 08/18/21 11:02 SARS-CoV-2, RNA, NAAT NEGATIVE (NEGATIVE) 08/18/21 11:11 Impressions Chest X-Ray 08/18/21 09:56 XR chest 1V portable CLINICAL HISTORY: arrythmia COMPARISON STUDY: Chest CT August 01, 2021. Chest radiograph August 04, 2021. FINDINGS: Median sternotomy wires are noted. There is a prosthetic aortic valve. Cardiomegaly is unchanged. Small to moderate right and small left pleural effusions are present. Left basilar opacity has slightly increased. Pulmonary edema has improved since chest radiograph of August 04, 2020. IMPRESSION: 1. Pulmonary vascular congestion. 2. Small to moderate right and small left pleural effusions. Increase in left basilar opacity which could reflect atelectasis or consolidation. ACT 112: Negative or not required by law. Electronically signed by: Mal Suazo M.D. 08/18/2021 11:[address] 08/18/21 10:11 CT head/brain wo con CLINICAL HISTORY: ams Technique: Contiguous axial CT images of the head were acquired from the base of the skull to the vertex without intravenous contrast administration. Images were viewed in brain, subdural and bone windows. Automated dose lowering techniques and/or adjustment according to patient size were utilized for this exam. Comparison: None available at the time of this dictation. Findings: Areas of decreased attenuation are present in the periventricular and subcortical white matter bilaterally consistent with small vessel ischemic disease. Generalized cerebral atrophy with commensurate enlargement of the ventricles, sulci, and cisterns is also present. There is no acute intracranial hemorrhage or evidence of acute territorial infarction. No shift of the midline structures, mass effect, or extra-axial abnormalities are shown. Atherosclerotic calcifications are present in the intracranial segments of the internal carotid arteries. Imaged portions of the paranasal sinuses and mastoid air cells are clear. The orbits appear normal. There are no acute fractures of the calvaria or scalp swelling. Impression: No acute intracranial hemorrhage, no evidence of acute territorial infarction or other acute intracranial disease process. ACT 112: Negative or not required by law. Electronically signed by: Gael Edgar M.D. 08/18/2021 12:01 PM Pelvis X-Ray 08/18/21 10:12 XR pelvis 1-2V routine HISTORY: 76 years-old Female ro fx acute pelvic pain status post trauma COMPARISON: CT abdomen and pelvis 08/01/2021 TECHNIQUE: AP view of the pelvis FINDINGS: Limited exam secondary to positioning, notably within the left leg in a frog-leg position. Moderate degeneration of the pubic symphysis. Minimal osteoarthritis of the hips with degenerative changes of the imaged lumbar spine. No definite acute fracture, dislocation or avascular necrosis. Surgical clips project over the right ischium. Soft tissue prominence lateral to the right hip. IMPRESSION: Limited exam secondary to positioning of the left hip. If there is clinical concern for an acute left hip fracture, repeat dedicated left hip films are recommended. ACT 112: Negative or not required by law. The above report was generated using voice recognition software. It may contain grammatical, syntax or spelling errors. Electronically signed by: Tanner Lima M.D. 08/18/2021 11:41 AM Abdomen/Pelvis CT 08/18/21 11:44 CT abd pelvis wo con CLINICAL HISTORY: fall 10 days ago possible L hip fx TECHNIQUE: Helical axial images of the abdomen and pelvis were obtained. Automated dose lowering techniques and/or adjustment according to patient size were utilized for this exam. This exam was performed without intravenous contrast. COMPARISON: Comparison is made to CT abdomen pelvis 08/01/2021 FINDINGS: Lower chest: Bilateral pleural effusions are seen. There is cardiomegaly. Liver: Unremarkable. No focal lesions are seen. Gallbladder and biliary tree: No calcified gallstones. Normal caliber wall. No intra- or extrahepatic biliary ductal dilation. Pancreas: Unremarkable, no focal lesions. Spleen: Status post sternotomy. Adrenals: Unremarkable. Kidneys and ureters: Unremarkable. Bladder: Harvey catheter is seen. Reproductive organs: Unremarkable. Bowel: Unremarkable. Lymph nodes Retroperitoneal: Unremarkable. Mesenteric: Unremarkable. Pelvic: Unremarkable. Peritoneum: Free fluid is seen in the pelvis. Vessels: Atherosclerotic calcifications are seen. Abdominal wall: Body wall edema is seen. Bones: No evidence of hip fracture is seen. Degenerative changes are seen in the spine. IMPRESSION: 1. No acute abnormalities. In particular no evidence of fracture. 2. Body wall edema and intraperitoneal free fluid is similar in appearance to prior exam. 3. Redemonstration of bilateral pleural effusions with associated atelectasis. Stable cardiomegaly. ACT 112: Negative or not required by law. Electronically signed by: Gael Edgar M.D. 08/18/2021 12:[address] 08/18/21 11:49 CT cervical spine wo con CLINICAL HISTORY: possible fall weakness TECHNIQUE: Multidetector row helical CT of the cervical spine was performed without administration of intravenous contrast. Coronal and sagittal reformations were obtained. Automated dose lowering techniques and/or adjustment according to patient size were utilized for this exam. Comparison: None available at the time of this dictation. FINDINGS: No acute fractures or subluxations are identified. The alignment is normal. The vertebral body heights and disk spaces are well maintained. The prevertebral soft tissues are unremarkable. Biapical scarring is seen in the lungs. IMPRESSION: No evidence of acute bony injury. ACT 112: Negative or not required by law. Electronically signed by: Gael Edgar M.D. 08/18/2021 12:02 PM ECG Additional Comments: DICTATED BY:Moses Neal MD Test Reason : Blood Pressure : / mmHG Vent. Rate : 046 BPM Atrial Rate : 053 BPM P-R Int : 000 ms QRS Dur : 162 ms QT Int : 704 ms P-R-T Axes : 000 -55 097 degrees QTc Int : 616 ms Probable Atrial fibrillation with slow ventricular response Left axis deviation Non-specific intra-ventricular conduction block Abnormal ECG When compared with ECG of 04-AUG-2021 06:59, Significant changes have occurred Confirmed by Moses Neal ([id number]) on 08/18/2021 10:31:49 AM Referred By: Confirmed By:Moses Neal Code Status & VTE Plan VTE Prophylaxis Plan VTE Prophylaxis will be ordered: Yes Critical Care Time 60 minutes PG Care Time/CCT Total # of Minutes Spent Total Time Spent with Patient: Total time spent is greater than 50% in coordination of care (as documented) at patient's floor/unit and/or counseling patient: Coding Level of Care Code None Diagnoses Symptomatic bradycardia R00.1 CHF (congestive heart failure) I50.9 Anemia D64.9 Acute hyperkalemia E87.5 CARL (acute kidney injury) N17.9 Elevated troponin R77.8 Thrombocytopenia D69.6 Hyponatremia E87.1
[2021-08-18] MEDS ORDERED: DOCUSATE SODIUM 100 MG CAP PO PRN (13:24)
[2021-08-18] MEDS ORDERED: ICU PROTOCOL FOR HYPERGLYCEMIA PRN (13:24)
[2021-08-18] MEDS ORDERED: SODIUM CHLORIDE 0.9% 1000ML 1,000 ML IV SCH (13:30)
--- NOTE | 2021-08-18 13:44 | Critical Care Consultation ---
Date of Consultation August 18, 2021 Assessment & Plan (1) Complete heart block: (2) Ventricular tachycardia: (3) CHF (congestive heart failure): (4) CARL (acute kidney injury): --Metabolic encephalopathy Likely from hypotension as well as post conscious sedation Aspiration precautions Continue to monitor --Complete heart block S/p temporary pacemaker. Currently patient has paced rhythm Continue with pacing --Shock Unsure etiology Hypovolemic versus septic Continue with antibiotics Vasopressor pro to keep MAP. 65 -- CARL Follow-up urine lites Monitor BUN/creatinine Avoid nephrotoxic medications Strict ins and outs --Acute hyperkalemia S/p hyperkalemia cocktail We will repeat labs now --Cyanosis of the left lower toes with poor pulses We will get arterial duplex --History of systolic CHF Strict in and out --Thrombocytopenia Continue to monitor --Hyponatremia Follow-up urine and serum osmolality --Prophylaxis VTE: IPC's GI: None Lines: Right cordis with temporary pacemaker, positive Harvey Diet: N.p.o. Plan: Start the patient on vasopressor support given the hypotension Given another 500 mL of normal saline We will put NGT given the potassium repeat is 6 and give [place]. Arterial duplex given the cyanosis of the left toes We will call the family to discuss the CODE STATUS the patient's prognosis is very poor I have personally spent 55 minutes of critical care time in the direct management of this patient. This is a life/limb threatening event. This includes time spent evaluating patient, direct bedside care, chart review, placing orders, interpretation of diagnostic studies, discussion with consultants, patient, and family members, as well as other required patient management activities. This time is exclusive of all separately billable procedures, and teaching time and separate from and in addition to any other critical care service time. Please note the above document was generated using voice recognition software. It may contain grammatical, syntax or spelling errors. History of Present Illness Attending Physician: Nelsy Marinelli DO History of Present Illness 76-year-old female past medical history of A. fib on Eliquis, metoprolol on flecainide was present to the hospital with complaints of weakness. This was going on for approximately 5 weeks but worsening in the last 3 days. ER found the patient to be bradycardic with heart rate ranging 30s and 50s. She did get 2 doses of epi. But because she was hypotensive she was taken to the Console Assembler and temporary paci ng wire was placed Patient was also found to be in CARL and hyperkalemia for which she got the hyper kalemia cocktail. At the time of examination patient had paced rhythm with wide complex. She was still under the effect of anesthesia She was nonverbal She was not in any respiratory distress Blood pressure systolic was in the 80s. Levophed was ordered and started History obtained from previous records and Dr. Marinelli Allergies Allergy/AdvReac Type Severity Reaction Status Date / Time bupivacaine Allergy Intermediate possibly Verified 08/18/21 11:55 caused seizures eggplant Allergy Mild MOUTH Verified 08/18/21 11:55 TINGLES Home Medications Medication Instructions Recorded Confirmed Type apixaban 5 mg tablet (Eliquis) 5 mg PO BID #180 tab 06/30/21 08/18/21 Rx losartan 100 mg tablet 50 mg PO DAILY tab 06/30/21 08/18/21 History flecainide 100 mg tablet 100 mg PO Q12H #60 tab 07/24/21 08/18/21 Rx amoxicillin 500 mg capsule 500 mg PO .COMPLEX PRN 07/27/21 08/18/21 History multivitamin 1 tab PO DAILY 07/27/21 08/18/21 History metoprolol succinate 50 mg 50 mg PO DAILY #30 tab 08/03/21 08/18/21 Rx tablet,extended release 24 hr (Toprol XL) diazepam 2 mg tablet (Valium) 2 mg PO TID PRN #11 tab 08/04/21 08/18/21 Rx Patient History Medical History (Updated 08/18/21 @ 13:43 by Nikki Vaca MD) Acute hyponatremia Bicuspid aortic valve S/P BOVINE AVR 2013 Seizure 1 TIME SEIZURE UPON EMERGENCE FROM ANESTHESIA FOR AVR 2013, HAD TO BE RE-INTUBATED. NO ISSUES SINCE, WAS ON KEPPRA X 3 MONTHS BUT WAS WEANED OFF. PER PT MAY HAVE BEEN R/T BUPIVOCAINE ALLERGY, BUT HOSPITAL RECORD SAYS 'UNKNOWN ETIOLOGY, POSSIBLY 2/2 ETOH WITHDRAWAL.' Weakness Surgical History Anesthesia complication PT HAD AN AVR AT [facility], [facility]. PT STATES SHE WAS TOLD SHE HAD A SEIZURE WHEN BEING BROUGHT OUT OF ANESTHESIA POSSIBLE RELATED TO EXPEREL. PT DENIES ANY ISSUES SINCE. H/O colonoscopy History of cardiac catheterization Social History Smoking Status: Unknown if ever smoked Second Hand Exposure: Yes; Hx Substance Use: No Preferred Language: Nigerian Communication Ability: Effective Commercial Internship Required: No Beliefs That Will Affect Care: None marital status: Current Living Situation: Spouse Feels Safe at Home: Yes Safety Concerns: Feels Safe At This Time Assistive Devices: Glasses and Walker Review of Systems Review of Systems: Unobtainable due to reduced consciousness Physical Exam Physical Exam: Constitutional: No acute distress HEENT:PERRLA Respiratory system: Decreased air entry bilaterally, no wheeze, no rhonchi, positive crackles bilateral lower lobes CVS: S1-S2 positive, accentuated P2 Abdomen: Soft, nontender, nondistended, positive bowel sounds x4 Extremities: Feeble pulses bilaterally radialis/ dorsalis pedis, +2 pitting edema bilateral lower extremity, cyanosis of the left toes Neuro: Somnolent from conscious sedation Psych: Unable to assess G/U: Positive Harvey Skin: no rashes, warm and dry Lymphatic: no cervical or axillary lymphadenopathy Results & Data Results & Data ([facility]) Vital Signs (Past 12 Hours) Vital Signs Temp Pulse Pulse Resp BP BP Pulse Ox 08/18/21 12:51 50 L 20 88/60 L 96 08/18/21 11:45 44 L 11 L 89 L 08/18/21 11:30 45 L 17 08/18/21 11:15 51 L 17 98/62 L 08/18/21 11:00 38 L 23 93 08/18/21 10:45 44 L 19 94/53 L 08/18/21 10:30 47 L 17 08/18/21 10:15 44 L 19 91 08/18/21 10:00 46 L 18 85 L 08/18/21 09:58 36.7 C 49 L 18 106/70 96 08/18/21 09:45 49 L 17 106/70 93 08/18/21 09:41 46 L 21 83 L 08/18/21 10:42 08/18/21 10:49 Coding Level of Care Code Critical Care 1st 30-74 mins Diagnoses Complete heart block I44.2 Ventricular tachycardia I47.2 CHF (congestive heart failure) I50.9 CARL (acute kidney injury) N17.9 Time Spent (min) 55
[2021-08-18] MEDS ORDERED: NOREPINEPHRINE/D5W 8 MG/508 ML IV ONE (13:53)
[2021-08-18] MEDS ORDERED: STAT IV Infusion **Titration per Protocol STA (14:03)
[2021-08-18] MEDS ORDERED: NOREPINEPHRINE/D5W 8 MG/508 ML BAG IV SCH (14:15)
[2021-08-18 14:16] LABS: Albumin Level 1.9 gm/dl (3.4-5.0); BUN Creatinine Ratio 25.9 (10-20); Calcium 8.3 mg/dl (8.5-10.1); Creatinine Clr Calc Pharmacy 13.9 ml/min; Est GFR (Non-African American) 13.8 ml/min
[2021-08-18 14:19] LABS: Albumin Globulin Ratio 0.5 (0.9-2); Globulin 3.6 gm/dl (2.5-4.0); Total Protein 5.5 gm/dl (6.4-8.2)
[2021-08-18 14:33] LABS: Schistocytes 1+
[2021-08-18 14:39] LABS: Pappenheimer Bodies 1+
[2021-08-18] MEDS ORDERED: CALCIUM CHLORIDE 10% 10 ML SYR IV ONE ×2 (15:15→15:59)
[2021-08-18] MEDS ORDERED: SODIUM BICARB 8.4% INJ 50 MEQ/50 ML SYR IV ONE ×2 (15:15→15:59)
--- NOTE | 2021-08-18 15:30 | Death Pronouncement Note ---
Date of Service August 18, 2021 Pronouncement Note Admission Date Admission Date: August 18, 2021 Date and Time of Date of : 08/18/21 Time of : 15:24 PCOD Preliminary cause of : Arrhythmia requiring replacement of cardiac pacemaker Contributing Factors (1) Complete heart block: (2) Ventricular tachycardia: (3) CHF (congestive heart failure): (4) CARL (acute kidney injury): Hospital Course Hospital Course: Please see HPI for admission details. In brief, patient admitted for weakness and fatigue. Found to be bradycardic with ventricular conduction delay, CARL with hyperkalemia. Patient had a temporary transvenous pacer placed by Cardiology and was admitted to the MICU. Patient became hypotensive in the MICU and Norepinephrine was administered. Patient became pulseless and unresponsive. Code Blue was called. She was adminstered several rounds of NaHCO3, epinephrine as well as calcium chloride. Patient at 15:24 Summary Additional details: Patient pulseless, without spontaneous respiration, pupils are fixed and dilated. No response to noxious stimuli Patient pronounced at 15:24 notified and is at bedside Additional Data Attending physician: Nelsy Marinelli DO Coding Level of Care Code None Diagnoses Complete heart block I44.2 Ventricular tachycardia I47.2 CHF (congestive heart failure) I50.9 CARL (acute kidney injury) N17.9
[2021-08-18] MEDS ORDERED: SODIUM CHLORIDE 0.9% 10ML FLUSH IV ONE (15:59)
--- NOTE | 2021-08-18 16:02 | Discharge Summary ---
Date of Service August 18, 2021 Admission HPI Per Admitting Provider Carrie Kelly is a 76yo female with history of atrial fibrillation on Eliquis anticoagulation, Metoprolol and Flecainide. Patient was admitted to [facility] from 07/27 - 08/03 with abnormal liver studies. Autoimmune workup with 1:320 ART as an outpatient. Negative liver doppler ultrasound - no clot. She had an outpatient liver biopsy performed on 08/07/21 - Findings (per [facility] records) with no suggestion of AI hepatitis. Findings may be secondary to venocclusive disease, Budd-Chiari syndrome or heart related issues. Could also be due to nodular regenerative hyperplasia, systemic inflammatory disease, granulomatous disorders or neoplastic conditions. Patient had a telephone visit with Dr. Neal from Cardiology on 08/09/21 which mentioned increased bilateral LE edema. Thought to be secondary to aggressive IVF administered in the hospital. Edema has improved since. Patient presents today complaining of profound weakness. She has had generalized weakness ongoing for the last 5 weeks with acute worsening over the last 3 days. states that she has not been able to get out of bed or take her medications for the last 3 days. In the ER patient afebrile, bradycardic. She had several episodes of wide complex rhythm, bradycardic. Possibly secondary to medication effects, slow conduction atrial fibrillation as well as dehydration and hyperkalemia. She continued to have episodes of bradycardia with rates 30 - 50's with pauses as well. She was administered Atropine x 2 doses. Interventional cardiology was contacted re: placement of temporary pacing wire. She was taken to the manager labor relations with placement of temporary transvenous pacer. Patient with no acute complaints. She is awake and alert, able to answer questions appropriately and follow commands. She does appear to have some cognitive slowing and intermittent periods of mild confusion. is at bedside as well. History corroborated with him. Patient mentions she has had tick bites in the past. Unable to say when last one was. Has taken very little food or water over the last several days. ER Course: Calcium gluconate 1gm, Insulin 10u IV + Dextrose 50mL, Atropine 0.5mg IV x 2 Admission Exam (Per Admitting) Constitutional General: patient resting comfortably, awake, oriented x 3, answers questions appropriately and follows commands. Some mild episodes of confusion and slow response Skin: warm, dry, intact, petechial rash on bilateral LE anterior shins, dusky colored toes bilaterally HEENT: NC/AT, PERRL, EOMI, anicteric sclera, conjunctiva without injection, external ear normal to inspection and nontender, nares patent, dry mucus membranes, dentition intact, no oropharyngeal lesions, neck supple, trachea midline, no LAD, no thyromegaly, no JVD Heart: +S1/S2, irregular, bradycardic, no m/r/g Lungs: equal air entry bilaterally, no rales/rhonchi/wheezes Abd: +BS, soft, NT/ND, no masses/organomegaly/ascites Ext: cool, weakly palpable pulses in bilateral LE, dusky toes Neuro: grossly nonfocal, patient AA&O x 3, speech intact, no facial droop, moving all extremities on command with equal strength 5/5 Discharge Data Consultations 08/18/21 13:24 Consult Housekeeping Manager Routine 08/18/21 13:31 Consult Cardiology Routine Procedures Performed Operation Date: 08/18/21 11:30 Actual Procedures p Ins/RemTemporary Transvenous Pacer - Yves Emmanuel MD Hospital Course (1) Complete heart block: (2) Ventricular tachycardia: (3) CHF (congestive heart failure): (4) CARL (acute kidney injury): Patient suffered a cardiac arrest in the MICU. ACLS protocol was initiated. Patient was admininistered several rounds of HCO3, epinephrine and calcium No ROSC Patient pronounced at 15:24 Coding Level of Care Code D/C DAY MANAGEMENT <30 MINS Diagnoses Complete heart block I44.2 Ventricular tachycardia I47.2 CHF (congestive heart failure) I50.9 CARL (acute kidney injury) N17.9
--- NOTE | 2021-08-18 16:50 | Communication Note ---
Date of Service: August 18, 2021 Critical CARE addendum: RADHA SMITH was called and patient lost her pulse and stopped responding at around 3:03 PM Patient's rhythm was PEA. Occasional paced rhythm on the monitor Patient got total of 6 epi, 4 bicarb and 3 calcium chloride Unfortunately patient was not able to be revived. Patient was pronounced at 3:24 p.m. was called and voicemail was left I have personally spent additional 25 minutes of critical care time in the direct management of this patient. This is a life/limb threatening event. This includes time spent evaluating patient, direct bedside care, chart review, placing orders, interpretation of diagnostic studies, discussion with consultants, patient, and family members, as well as other required patient management activities. This time is exclusive of all separately billable procedures, and teaching time and separate from and in addition to any other critical care service time. Please note the above document was generated using voice recognition software. It may contain grammatical, syntax or spelling errors. Coding Level of Care Code Critical Care temitope chow'ellen 30 min Time Spent (min) 25
[2021-08-19] MEDS ORDERED: DOXYCYCLINE HYCLATE 100 MG in DEXTROSE 5% 100 ML IV SCH (02:00)
--- NOTE | 2021-08-19 10:26 | Electrocardiogram Report ---
Test Reason : Blood Pressure : / mmHG Vent. Rate : 045 BPM Atrial Rate : 046 BPM P-R Int : 000 ms QRS Dur : 136 ms QT Int : 650 ms P-R-T Axes : 000 -17 069 degrees QTc Int : 562 ms Wide QRS rhythm Non-specific intra-ventricular conduction block T wave abnormality, consider anterior ischemia Abnormal ECG When compared with ECG of 18-AUG-2021 10:08, (unconfirmed) No significant change was found Confirmed by Moses Neal ([id number]) on 08/19/2021 10:26:15 AM Referred By: REFERRED SELF Confirmed By:Moses Neal
--- NOTE | 2021-08-19 10:26 | Electrocardiogram Report ---
Test Reason : Blood Pressure : / mmHG Vent. Rate : 046 BPM Atrial Rate : 000 BPM P-R Int : 000 ms QRS Dur : 168 ms QT Int : 692 ms P-R-T Axes : 000 -54 105 degrees QTc Int : 605 ms Wide QRS rhythm Left axis deviation Left bundle branch block Abnormal ECG When compared with ECG of 18-AUG-2021 09:41, Wide QRS rhythm has replaced Atrial fibrillation Confirmed by Moses Neal ([id number]) on 08/19/2021 10:25:33 AM Referred By: REFERRED SELF Confirmed By:Moses Neal
== END 2021-08-18 16:00 | disposition expired | DRG 308 ==
LOC: ED 09:28 → 1E 12:00